=== PATIENT | female | born 1965 | race Caucasian/White ===

== ENCOUNTER 2023-06-21 10:23 | Outpatient (OUT) | payer OTHER, SELFPAY ==
--- NOTE | 2023-06-21 10:29 | MR_ITS ---
The [address] [address] Patient Name: ANKIT SULLIVAN MRN: [facility]:[id number] date: 1965 Sex: F Assigned Patient Location: MRI Current Patient Location: MRI Accession/Order Number: [id number] Exam Date: 06/21/2023 10:55 Report Date: 06/21/2023 12:14 At the request of: JEANA BOWIE Procedure: MR head/brain wo/w con MRI BRAIN WITH AND WITHOUT CONTRAST; 06/21/2023 10:55 AM EST History:Sensorineural Hearing Loss Bilateral H90.3 . Bilateral ringing in the years Comparison: None available . SEQUENCES: Per IAC protocol STUDY QUALITY: Good No evidence of acute infarction. No restricted diffusion. Modest relatively symmetric scattered supratentorial white matter disease. There is no evidence of abnormal intra-axial enhancement. No intra-axial mass effect. VESSELS: Signal voids are present in the major intracranial blood vessels. BRAIN VOLUME: Normal for age. VENTRICLES: No hydrocephalus. ORBITS: No acute findings. SELLA/ SUPRASELLAR: No acute findings at relatively thick sections. CP ANGLES: No evidence of a mass or abnormal enhancement in either CP angle or IAC. The structures of the inner ears are grossly symmetric and unremarkable at MRI. No unexpected signal or enhancement at the expected locations of the middle ear cavities. There is no mastoid effusion. Unremarkable signal voids and enhancement torcula, transverse sinus, sigmoid sinus, and jugular bulbs. Neither petrous ICA is obviously aberrant in course. UPPER CERVICAL: No acute findings. PARANASAL SINUSES: No air-fluid levels. Moderate focal mucosal thickening in right anterior ethmoid cell MASTOIDS: Essentially clear at MRI CALVARIUM: No acute findings. OTHER: None. MR/MR head/brain wo/w con IMPRESSION: 1. No distinct evidence of acute intracranial process. 2. Modest symmetric primarily scattered supratentorial white matter disease. 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 Electronically authenticated by: NELLY THOMPSON Date: 06/21/2023 12:14
== END 2023-06-21 10:24 | disposition home or self-care (01) ==
LOC: MRI 10:23
PROVIDERS: PCP Family Medicine; Visit Provider Otolaryngology
DX: H90.3 Sensorineural hearing loss, bilateral (principal)
CPT/HCPCS: 70553; A9575

== ENCOUNTER 2023-09-14 10:42 | Outpatient (OUT) | payer OTHER, SELFPAY ==
--- NOTE | 2023-09-14 10:45 | MM_ITS ---
Patient Name: ANKIT SULLIVAN MR#: [id number] : 1965 Exam Date: 09/14/2023 Ordering Doctor: DR Barak White . RADIOLOGY REPORT PROCEDURE: MM TOMOSYNTHESIS SCREENING BI COMPARISON: MG MAMM SCREEN 3D [place] CAD, 08/24/2021. MG MAMM SCREEN 3D [place] CAD, 08/25/2022. INDICATIONS: Screening Calculator Name NCI Breast Cancer Risk Assessment Tool 5 Year Breast Cancer Risk 2.80% Lifetime Breast Cancer Risk 15.50% Personal Breast Cancer No Personal Ovarian Cancer No Treatments None Family Cancers Mother with breast cancer at age 50; Father with prostate cancer at age 50; Father with lymphoma cancer at age 73. LOCATION: The [facility] BREAST COMPOSITION: Scattered areas fibroglandular density. FINDINGS: DIAGNOSTIC CATEGORY 1--NEGATIVE. NO CHANGE FROM COMPARISON ASSESSMENT. Scattered benign-appearing nodules are present. Scattered benign-appearing calcifications are present. Scattered benign-appearing lymph nodes are present. RIGHT BREAST: No significant suspicious finding. LEFT BREAST: No significant suspicious finding. RECOMMENDATIONS: ROUTINE MAMMOGRAM AND CLINICAL EVALUATION IN 12 MONTHS. PLEASE NOTE: A NORMAL MAMMOGRAM DOES NOT EXCLUDE THE POSSIBILITY OF BREAST CANCER. A CLINICALLY SUSPICIOUS PALPABLE LUMP SHOULD BE BIOPSIED. Dictated by: Benjamín Redd MD on 09/14/2023 at 12:54 Approved by: Benjamín Redd MD on 09/14/2023 at 12:56
--- OUTSIDE RECORDS SUMMARY | 2023-09-14 10:52 | XMS_ITS | CCD ---
Author Name Unknown Address [address] [facility] [address] [place] [id number] Organization [facility] Care Team Providers Care Igniter Capper Name Role Phone MD Elvira Etienne Attending Provider [phone] TYSHA[address] ., DR BUNN Admitting Unavailable TYSHAWN ., DR BUNN Attending Unavailable NADERER, DR TOMMY Greene Primary Care Unavailable TYSHAWN ., DR BUNN Consulting Unavailable NADERER, DR TOMMY Greene Admitting Unavailable NADERER, DR TOMMY Greene Attending Unavailable NADERER, DR TOMMY Greene Primary Care Unavailable TYSHAWN ., DR BUNN Consulting Unavailable ZIEBER, DR ROBERT Raymond Consulting Unavailable NADEREMandi, DR TOMMY Greene Consulting Unavailable NADAMIRA, DR TOMMY Greene Admitting Unavailable NADERER, DR TOMMY Greene Attending Unavailable NADERER, DR TOMMY Greene Primary Care Unavailable NADERER, DR TOMMY Greene Consulting Unavailable Fawcesar, Attending Unavailable Fawcesar, Admitting Unavailable NON STAFF Primary Care Unavailable NADERER, TOMMY Attending Unavailable Tommy Reno MD Primary Care Provider Allergies Allergy Classification Reported Allergen(s) Allergy Type Date of Onset Reaction(s) Facility (1 source) cefdinir Drug Allergy 4 Other [facility] (1 source) Iodine Drug Allergy 3 Hives, Itching, Rash, Swelling [facility] Work Phone: (1 source) levoFLOXacin Drug Allergy 4 Other [facility] Work Phone: (1 source) Mercury Drug Allergy 3 Hives, Itching [facility] (1 source) Sulfonamides (Antibiotic) Drug Allergy 3 Hives, Itching, Rash, Swelling, Unknown [facility] (1 source) Trimethoprim Drug Allergy 3 Unknown [facility] Medications Current Medications Medication Drug Class(es) Dates Sig (Normalized) Sig (Original) benzonatate 200 mg oral capsule (1 source) Non-narcotic Antitussive Start: 09-05-2023 take 1 capsule by mouth three times daily as needed for cough benzonatate (Tessalon) 200 MG capsule Indications: Upper respiratory tract infection, unspecified type Take 1 capsule (200 mg) by mouth 3 (three) times a day as needed for cough Do not crush or chew. 30 capsule 1 09/05/2023 Active biotin 10 mg oral capsule (1 source) take 1 capsule by mouth in the morning biotin 10 MG capsule Take 1 capsule by mouth in the morning. 0 Active Calcium Citrate / Vitamin D (1 source) take 1 tablet by mouth once in the morning Calcium Citrate-Vitamin D (CALCIUM CITRATE +D PO) Take 1 tablet by mouth in the morning. 0 Active celecoxib 200 mg oral capsule (1 source) Nonsteroidal Anti-inflammatory Drug take 1 capsule by mouth in the morning celecoxib (CeleBREX) 200 MG capsule Take 200 mg by mouth in the morning and 200 mg before bedtime. 0 Active cetirizine hydrochloride 10 mg oral tablet (1 source) Histamine-1 Receptor Antagonist take 1 tablet by mouth in the morning cetirizine (ZyrTEC) 10 MG tablet Take 10 mg by mouth in the morning. 0 Active folic acid 0.8 mg oral tablet (1 source) take 0.8 mg by mouth in the morning folic acid (Folvite) 800 MCG tablet Take 0.8 mg by mouth in the morning. 0 Active furosemide 40 mg oral tablet (1 source) Loop Diuretic Start: 03-14-2023 take 1 tablet by mouth in the morning furosemide (Lasix) 40 MG tablet Take 40 mg by mouth in the morning and 40 mg before bedtime. 0 03/14/2023 Active magnesium oxide 500 mg oral capsule (1 source) take 1 capsule by mouth in the morning Magnesium 500 MG capsule Take 1 capsule by mouth in the morning. 0 Active Multiple Vitamins-Minerals (multivitamin with minerals) tablet (1 source) take 1 tablet by mouth in the morning Multiple Vitamins-Minerals (multivitamin with minerals) tablet Take 1 tablet by mouth in the morning. 0 Active potassium chloride 10 meq extended release oral tablet (1 source) take 1 tablet by mouth in the morning potassium chloride CR (Klor-Con) 10 MEQ ER tablet Take 10 mEq by mouth in the morning. 0 Active pravastatin sodium 40 mg oral tablet (1 source) HMG-CoA Reductase Inhibitor take 1 tablet by mouth at bedtime pravastatin (Pravachol) 40 MG tablet Take 40 mg by mouth at bedtime. 0 Active SUMAtriptan 100 mg oral tablet (1 source) Serotonin-1b and Serotonin-1d Receptor Agonist Start: 09-05-2023 take 1 tablet by mouth once SUMAtriptan (Imitrex) 100 MG tablet Indications: Migraine without aura and without status migrainosus, not intractable (CMS/HCC) Take 1 tablet (100 mg) by mouth 1 (one) time if needed for migraine 9 tablet 5 09/05/2023 Active topiramate 100 mg oral tablet (1 source) take 1 tablet by mouth in the morning topiramate (Topamax) 100 MG tablet Take 100 mg by mouth in the morning. 0 Active zinc gluconate 50 mg oral tablet (1 source) take 1 tablet by mouth in the morning zinc gluconate 50 MG tablet Take 50 mg by mouth in the morning. 0 Active Completed/Discontinued Medications Medication Drug Class(es) Dates Sig (Normalized) Sig (Original) Rhubarb preparation (1 source) Non-Standardized Food Allergenic Extract, Non-Standardized Plant Allergenic Extract take 1 tablet by mouth in the morning Rhubarb (ESTROVEN COMPLETE PO) Take 1 tablet by mouth in the morning. 0 Active Problems Active Problems Problem Classification Problem Date Documented Date Episodic/Chronic Disorders of lipid metabolism (1 source) Hyperlipidemia; Translations: [Hyperlipidemia, unspecified] Onset: 04-02-2023 04-02-2023 Chronic Esophageal disorders (1 source) Gastroesophageal reflux disease; Translations: [Gastro-esophageal reflux disease without esophagitis] Onset: 04-02-2023 04-02-2023 Chronic Headache; including migraine (1 source) Migraine without aura, not refractory ; Translations: [Migraine without aura, not intractable, without status migrainosus] Onset: 04-02-2023 09-05-2023 Chronic Immunizations and screening for infectious disease (1 source) Encounter for screening for human papillomavirus (HPV); Translations: [ENC SCREENING HUMAN PAPILLOMAVIRUS] Onset: 10-06-2022 Episodic Menopausal disorders (1 source) Menopausal symptom; Translations: [Menopausal and female climacteric states] Onset: 04-02-2023 04-02-2023 Chronic Other ear and sense organ disorders (1 source) Sensorineural hearing loss, bilateral; Translations: [Sensorineural hearing loss, bilateral] Onset: 04-04-2023 04-04-2023 Chronic Other screening for suspected conditions (not mental disorders or infectious disease) (9 sources) Encounter for screening for malignant neoplasm of cervix; Translations: [Encounter for screening mammogram for malignant neoplasm of breast] Onset: 08-25-2022 Episodic Other upper respiratory disease (1 source) Allergic rhinitis; Translations: [Allergic rhinitis, unspecified] Onset: 04-02-2023 04-02-2023 Chronic Other upper respiratory infections (1 source) Sinusitis; Translations: [Chronic sinusitis, unspecified] Onset: 04-02-2023 04-02-2023 Chronic Residual codes; unclassified (1 source) Family history of malignant neoplasm of breast; Translations: [FAMILY HX MALIG NEOPLASM OF BREAST] Onset: 08-30-2022 Episodic Residual codes; unclassified (1 source) Family history of malignant neoplasm of prostate; Translations: [FAMILY HX MALIG NEOPLASM PROSTATE] Onset: 08-30-2022 Episodic Residual codes; unclassified (1 source) Family history of other malignant neoplasms of lymphoid, hematopoietic and related tissues; Translations: [FAM HX OTH MAL JOSE LYMPH HEMATPOETC] Onset: 08-30-2022 Episodic Unclassified (1 source) Pain in left ankle and joints of left foot; Translations: [Pain in left ankle and joints of left foot] Onset: 05-10-2022 Past or Other Problems Problem Classification Problem Date Documented Da te Episodic/Chronic Mycoses (1 source) Mycosis; Translations: [Candidiasis, unspecified] Onset: 04-02-2023 Resolved: 04-02-2023 04-02-2023 Episodic Other ear and sense organ disorders (1 source) Tinnitus of left ear; Translations: [Tinnitus, left ear] Onset: 04-02-2023 04-04-2023 Episodic Other nutritional; endocrine; and metabolic disorders (1 source) Obese class I; Translations: [Obesity, unspecified] Onset: 04-02-2023 Resolved: 04-02-2023 04-02-2023 Chronic Other upper respiratory infections (1 source) Acute sinusitis; Translations: [Acute sinusitis, unspecified] Onset: 04-02-2023 Resolved: 04-02-2023 04-02-2023 Episodic Residual codes; unclassified (1 source) Edema; Translations: [Edema, unspecified] Onset: 04-02-2023 04-02-2023 Episodic Results Test Name Value Interpretation Reference Range Facility PAP ACOG PANEL 2: 30 to 65on 10-10-2022 . . Normal [facility] Comment on above: Result Comment: Perf ormed at: WB Performed By: #### [id number] #### [facility] [address] [address] [address] Alondra Pham Age Gdln ACOG Testing 30-65 [facility] Comment on above: Performed By: #### [id number] #### [facility] [address] [address] [address] Alondra Pham DIAGNOSIS: Comment Normal [facility] Comment on above: Result Comment: NEGA TIVE FOR INTRAEPITHELIAL LESION OR MALIGNANCY. Performed at: WB Performed By: #### [id number] #### [facility] [address] [address] [address] Alondra Pham HPV Aptima Negative Normal Negative [facility] Comment on above: Result Comment: This nucleic acid amplification test detects fourteen high-risk HPV types (16,18,31,33,35,39,45,51,52,56,58,59,66,68) without differentiation. Performed at: =G Performed By: #### [id number] #### [facility] [address] [address] [address] Alondra Pham HPV Genotype Reflex Comment Normal [facility] Comment on above: Result Comment: Crit eria not met, HPV Genotype not performed. Performed at: WB Performed By: #### [id number] #### [facility] [address] [address] [address] Alondra Pham Methodology: CTIM Normal [facility] Comment on above: Result Comment: The [employer] [facility] Support Consultant was unable to read this specimen. Therefore a manual review was performed. Performed at: WB Performed By: #### [id number] #### [facility] [address] [place] [address] Dr. Alondra Pham Note: Comment Normal [facility] Comment on above: Result Comment: The Pap smear is a screening test designed to aid in the detection of premalignant and malignant conditions of the uterine cervix. It is not a diagnostic procedure and should not be used as the sole means of detecting cervical cancer. Both false-positive and false-negative reports do occur. . Performed at: WB Performed By: #### [id number] #### [facility] [address] [place] [address] Dr. Alondra Pham Performed by: Comment Normal [facility] Comment on above: Result Comment: Usman Lim, Car Hopper (ASCP) Performed at: WB Performed By: #### [id number] #### [facility] [address] [place] [address] Dr. Alondra Pham Specimen adequacy: Comment Normal [facility] Comment on above: Result Comment: Sati sfactory for evaluation. Endocervical and/or squamous metaplastic cells (endocervical component) are present. Performed at: WB Performed By: #### [id number] #### [facility] [address] [place] [address] Dr. Alondra Pham MG MAMM SCREEN 3D LUCRECIA CADon 08-25-2022 MG MAMM SCREEN 3D LUCRECIA CAD Patient: ANKIT ROMERO Exam Date: 08/25/2022 : 1965 Gender:F Ordering : DR TOMMY RENO . Admission #: [id number] Family : DR ONI WHITE . Order #: [id number] CLICK HERE TO VIEW EXAM RADIOLOGY REPORT PROCEDURE: MAMMOGRAM SCREENING 3D BILATERAL CAD COMPARISON: MG MAMM SCREEN LUCRECIA W CAD, 08/23/2020. MG MAMM SCREEN LUCRECIA W CAD, 08/18/2019. DIGITIZED_MAMMO, 06/04/2009. MG MAMM SCREEN 3D LUCRECIA CAD, 08/24/2021. INDICATIONS: Screening mammography Calculator Name NCI Breast Cancer Risk Assessment Tool 5 Year Breast Cancer Risk 2.70% Lifetime Breast Cancer Risk 15.80% Personal Breast Cancer No Personal Ovarian Cancer No Treatments None Family Cancers Mother with breast cancer at age 50; Father with prostate cancer at age 50; Father with lymphoma cancer at age 73. LOCATION: [facility] BREAST COMPOSITION: Scattered areas fibroglandular density. FINDINGS: DIAGNOSTIC CATEGORY 1--NEGATIVE. RIGHT BREAST: No significant suspicious finding. No significant change has occurred. LEFT BREAST: No significant suspicious finding. No significant change has occurred. RECOMMENDATIONS: ROUTINE MAMMOGRAM AND CLINICAL EVALUATION IN 12 MONTHS. PLEASE NOTE: A NORMAL MAMMOGRAM DOES NOT EXCLUDE THE POSSIBILITY OF BREAST CANCER. A CLINICALLY SUSPICIOUS PALPABLE LUMP SHOULD BE BIOPSIED. Dictated by: Robert Martel M.D. on 08/28/2022 at 09:08 Approved by: Robert Martel M.D. on 08/28/2022 at 09:11 Normal [facility] CBC AUTO DIFFon 06-02-2022 BASO # 0.0 103/ul Normal 0.0-0.1 [facility] Comment on above: Performed By: #### C BC #### [facility] [address] [place] [address] Dr. Alondra Pham Basophils/100 WBC (Bld) 0.4 % Normal 0.2-2.0 [facility] Comment on above: Performed By: #### C BC #### [facility] [address] [place] [address] Dr. Alondra Pham EO # 0.1 103/ul Normal 0.0-0.7 [facility] Comment on above: Performed By: #### C BC #### [facility] [address] [place] [address] Dr. Alondra Pham Eosinophils/100 WBC (Bld) 1.8 % Normal 0.9-7.0 [facility] Comment on above: Performed By: #### C BC #### [facility] [address] [place] [address] Dr. Alondra Pham Erythrocyte distribution width (RBC) [Ratio] 14.9 % Normal 11.0-15.0 [facility] Comment on above: Performed By: #### C BC #### [facility] [address] [place] [address] Dr. Alondra Pham Hematocrit (Bld) [Volume fraction] 46.1 % Normal 36.0-48.0 [facility] Comment on above: Performed By: #### C BC #### [facility] [address] [place] [address] Dr. Alondra Pham Hemoglobin (Bld) [Mass/Vol] 14.9 g/dL Normal 12.0-16.0 [facility] Comment on above: Performed By: #### C BC #### [facility] [address] [place] [address] Dr. Alondra Pham IG # 0.05 10e3/ul Critically high 0.00-0.03 [facility] Comment on above: Performed By: #### C BC #### [facility] [address] [place] [address] Dr. Alondra Pham IG % 0.7 % Critically high 0.0-0.5 [facility] Comment on above: Performed By: #### C BC #### [facility] [address] [place] [address] Dr. Alondra Pham LYMPH # 2.2 103/ul Normal 1.2-3.8 [facility] Comment on above: Performed By: #### C BC #### [facility] [address] [place] [address] Dr. Alondra Pham Lymphocytes/100 WBC (Bld) 29.2 % Normal 20.5-60.0 [facility] Comment on above: Performed By: #### C BC #### [facility] [address] [place] [address] Dr. Alondra Pham MANUAL DIFF REQ NO Normal [facility] Comment on above: Performed By: #### C BC #### [facility] [address] [place] [address] Dr. Alondra Pham MCH (RBC) [Entitic mass] 28.3 pg Normal 26.7-34.0 [facility] Comment on above: Performed By: #### C BC #### [facility] [address] [place] [address] Dr. Alondra Pham MCHC (RBC) [Mass/Vol] 32.3 g/dL Normal 29.9-35.2 [facility] Comment on above: Performed By: #### C BC #### [facility] [address] [place] [address] Dr. Alondra Pham MCV (RBC) [Entitic vol] 87.5 fL Normal 81.0-99.0 [facility] Comment on above: Performed By: #### C BC #### [facility] [address] [place] [address] Dr. Alondra Pham MONO # 0.7 103/ul Normal 0.3-0.8 [facility] Comment on above: Performed By: #### C BC #### [facility] [address] [place] [address] Dr. Alondra Pham Monocytes/100 WBC (Bld) 9.2 % Normal 1.7-12.0 [facility] Comment on above: Performed By: #### C BC #### [facility] [address] [place] [address] Dr. Alondra Pham NEUT # 4.5 103/ul Normal 1.4-6.5 [facility] Comment on above: Performed By: #### C BC #### [facility] [address] [place] [address] Dr. Alondra Pham Neutrophils/100 WBC (Bld) 58.7 % Normal 43.0-75.0 [facility] Comment on above: Performed By: #### C BC #### [facility] [address] [place] [address] Dr. Alondra Pham Platelet mean volume (Bld) [Entitic vol] 11.0 fL Normal 9.5-13.5 [facility] Comment on above: Performed By: #### C BC #### [facility] [address] [place] [address] Dr. Alondra Pham PLT 299 103/ul Normal 150-450 [facility] Comment on above: Performed By: #### C BC #### [facility] [address] [place] [address] Dr. Alondra Pham RBC 5.27 106/ul Normal 4.20-5.40 [facility] Comment on above: Performed By: #### C BC #### [facility] [address] [address] [address] Alondra Pham WBC 7.6 103/ul Normal 4.0-11.0 [facility] Comment on above: Performed By: #### C BC #### [facility] [address] [address] [address] Alondra Pham GLYCOHEMOGLOBIN A1Con 2021 ADA RECOMMENDATION SEE BELOW Normal [facility] Comment on above: Result Comment: ADA RECOMMENDED LIMIT 4.0 - 6.0 ADA THERAPEUTIC TARGET < 7.0 ACTION SUGGESTED > 7.0 Performed By: #### A 1C #### [facility] [address] [place] [address] Dr. Alondra Pham Glucose [Mass/Vol] 120 mg/dL Normal [facility] Comment on above: Performed By: #### A 1C #### [facility] [address] [place] [address] Dr. Alondra Pham HbA1c (Bld) [Mass fraction] 5.8 % Normal 4.5-6.2 [facility] Comment on above: Performed By: #### A 1C #### [facility] [address] [place] [address] Dr. Alondra Pham LIPID PROFILEon 06-02-2022 CHOL-HDL RATIO NORM SEE BELOW Normal [facility] Comment on above: Result Comment: 3.3 - 4.4 LOW RISK 4.4 - 7.1 AVERAGE RISK 7.1 - 11.0 MODERATE RISK >11.0 HIGH RISK Performed By: #### L IVER, BMP, TSH, LIPID #### [facility] [address] [address] [address] Alondra Pham Cholesterol [Mass/Vol] 231 mg/dL Critically high <=200 [facility] Comment on above: Performed By: #### L IVER, BMP, TSH, LIPID #### [facility] [address] [address] [address] Alondra Pham Cholesterol in HDL [Mass/Vol] 51 mg/dL Normal 40-60 [facility] Comment on above: Performed By: #### L IVER, BMP, TSH, LIPID #### [facility] [address] [address] [address] Alondra Pham Cholesterol in LDL [Mass/Vol] 140.8 mg/dL Normal [facility] Comment on above: Performed By: #### L IVER, BMP, TSH, LIPID #### [facility] [address] [address] [address] Alondra Pham Cholesterol.total/Ch olesterol in HDL [Mass ratio] 4.5 {ratio} Normal [facility] Comment on above: Performed By: #### L IVER, BMP, TSH, LIPID #### [facility] [address] [address] [address] Alondra Pham HDL NORMAL > or = 60 mg/dl - LO W CARDIOVASCULAR RISK <40 mg/dl - HIGH CARDIOVASCULAR RISK Normal [facility] Comment on above: Performed By: #### L IVER, BMP, TSH, LIPID #### [facility] [address] [address] [address] Alondra Pham LDL CALC NORMAL SEE BELOW Normal [facility] Comment on above: Result Comment: <100 mg/dl OPTIMAL 100 - 129 mg/dl NEAR OR ABOVE OPTIMAL 130 - 159 mg/dl BORDERLINE HIGH 160 - 189 mg/dl HIGH >190 mg/dl VERY HIGH Performed By: #### L IVER, BMP, TSH, LIPID #### [facility] [address] [address] [address] Alondra Pham Triglyceride [Mass/Vol] 196 mg/dL Critically high <=150 [facility] Comment on above: Performed By: #### L IVER, BMP, TSH, LIPID #### [facility] [address] [address] [address] Alondra Pham VLDL CALC 39.2 mg/dL Normal [facility] Comment on above: Performed By: #### L IVER, BMP, TSH, LIPID #### [facility] [address] [address] [address] Alondra Pham LIVER PROFILEon 06-02-2022 Albumin [Mass/Vol] 3.7 g/dL Normal 3.4-5.0 [facility] Comment on above: Performed By: #### L IVER, BMP, TSH, LIPID #### [facility] [address] [place] [address] Dr. Alondra Pham Albumin/Globulin [Mass ratio] 0.9 {ratio} Normal [facility] Comment on above: Performed By: #### L IVER, BMP, TSH, LIPID #### [facility] [address] [place] [address] Dr. Alondra Pham ALP [Catalytic activity/Vol] 95 U/L Normal 46-116 [facility] Comment on above: Performed By: #### L IVER, BMP, TSH, LIPID #### [facility] [address] [place] [address] Dr. Alondra Pham ALT [Catalytic activity/Vol] 23 U/L Normal 14-59 [facility] Comment on above: Performed By: #### L IVER, BMP, TSH, LIPID #### [facility] [address] [place] [address] Dr. Alondra Pham AST [Catalytic activity/Vol] 16 U/L Normal 15-37 [facility] Comment on above: Performed By: #### L IVER, BMP, TSH, LIPID #### [facility] [address] [place] [address] Dr. Alondra Pham BILI, CONJUGATED 0.1 mg/dL Normal 0.0-0.2 [facility] Comment on above: Performed By: #### L IVER, BMP, TSH, LIPID #### [facility] [address] [place] [address] Dr. Alondra Pham Bilirubin [Mass/Vol] 0.6 mg/dL Normal 0.2-1.0 [facility] Comment on above: Performed By: #### L IVER, BMP, TSH, LIPID #### [facility] [address] [place] [address] Dr. Alondra Pham Globulin (S) [Mass/Vol] 3.9 g/dL Normal [facility] Comment on above: Performed By: #### L IVER, BMP, TSH, LIPID #### [facility] [address] [address] [address] Alondra Pham Protein [Mass/Vol] 7.6 g/dL Normal 6.4-8.2 [facility] Comment on above: Performed By: #### L IVER, BMP, TSH, LIPID #### [facility] [address] [address] [address] Alondra Pham PROF CHEM 8 (BAS METB)on Anion gap [Moles/Vol] 12.3 mmol/L Normal [facility] Comment on above: Performed By: #### L IVER, BMP, TSH, LIPID #### [facility] [address] [address] [address] Alondra Pham Calcium [Mass/Vol] 9.2 mg/dL Normal 8.5-10.1 [facility] Comment on above: Performed By: #### L IVER, BMP, TSH, LIPID #### [facility] [address] [place] [address] Dr. Aolndra Pham Chloride [Moles/Vol] 101 mmol/L Normal 98-107 [facility] Comment on above: Performed By: #### L IVER, BMP, TSH, LIPID #### [facility] [address] [place] [address] Dr. Alondra Pham CO2 [Moles/Vol] 28.4 mmol/L Normal 21.0-32.0 [facility] Comment on above: Performed By: #### L IVER, BMP, TSH, LIPID #### [facility] [address] [address] [address] Alondra Pham Creatinine [Mass/Vol] 1.10 mg/dL Critically high 0.55-1.02 [facility] Comment on above: Performed By: #### L IVER, BMP, TSH, LIPID #### [facility] [address] [place] [address] Dr. Alondra Pham EGFR-AF NEW ZEALANDER >60 Normal >=60 [facility] Comment on above: Performed By: #### L IVER, BMP, TSH, LIPID #### [facility] [address] [place], [place] [id number] Dr. Alondra Pham EGFR-NON AF NEW ZEALANDER 51 mL/min/1.73m2 Critically low >=60 [facility] Comment on above: Performed By: #### L IVER, BMP, TSH, LIPID #### [facility] [address] [place] [address] Dr. Alondra Pham Glucose [Mass/Vol] 109 mg/dL Critically high 74-106 T [facility] Comment on above: Performed By: #### L IVER, BMP, TSH, LIPID #### [facility] [address] [place] [address] Dr. Alondra Pham Potassium [Moles/Vol] 3.7 mmol/L Normal 3.5-5.1 [facility] Comment on above: Performed By: #### L IVER, BMP, TSH, LIPID #### [facility] [address] [place] [address] Dr. Alondra Pham Sodium [Moles/Vol] 138 mmol/L Normal 136-145 [facility] Comment on above: Performed By: #### L IVER, BMP, TSH, LIPID #### [facility] [address] [address] [address] Alondra Pham Urea nitrogen [Mass/Vol] 33.0 mg/dL Critically high 7.0-18.0 [facility] Comment on above: Performed By: #### L IVER, BMP, TSH, LIPID #### [facility] [address] [address] [address] Alondra Pham Urea nitrogen/Creatinine [Mass ratio] 30.0 mg/mg Normal [facility] Comment on above: Performed By: #### L IVER, BMP, TSH, LIPID #### [facility] [address] [place] [address] Dr. Alondra Pham TSHon 06-02-2022 TSH 1.888 uIU/mL Normal 0.358-3.740 [facility] Comment on above: Performed By: #### L IVER, BMP, TSH, LIPID #### [facility] [address] [place] [address] Dr. Alondra Pham XR ankle LT min 3V*on 2021 XR ankle LT min 3V* [facility] [place] [address] [place], [place] [id number] XRay Report Signed Patient: Ankit Romero MR#: [id number] : 1965 Acct:[id number] Age/Sex: 56 / F ADM Date: 05/10/22 Loc: XDCLY Room: Type: [facility] Attending Dr: Shaikh Lowell HARRISON Copies to: Shaikh Lowell MD Ordering Provider: Shaikh Lowell MD Date of Service: 05/10/22 XR/XR ankle LT min 3V*: LEFT ANKLE PAIN XR ankle LT min 3V* 05/10/2022 10:18 AM SIGNS AND SYMPTOMS: Left foot injury with pain and swelling over the left ankle, greatest medially PROTOCOL: Frontal, lateral, and oblique radiographs of the left ankle COMPARISON: None FINDINGS: The ankle mortise is preserved. There is no evidence of fracture. There is no dislocation or subluxation. XR/XR ankle LT min 3V* IMPRESSION: No acute bony injury. There is mild diffuse soft tissue swelling. Impression dictated by: Anam Yanes M.D.05/10/2022 4:33 PM Dictation Location: [place] [address] Transcribed By: [facility] 05/10/22 1633 Dictated By: Anam Yanes II, MD 05/10/22 1631 Signed By: 05/10/22 1633 [facility] Encounters Encounter Date Encounter Type Care Provider Facility Start: 09-07-2023 Telephone encounter Anita pineda MD Work Phone: [facility] Start: 09-05-2023 Patient encounter procedure Anita Dee MD Work Phone: [facility] Start: 09-05-2023 End: 09-05-2023 ambulatory TOMMY RENO Not Available Start: 10-03-2022 End: 10-03-[address] ONI WHITE . Facility:[facility] Start: 08-25-2022 End: 08-26-[address] TOMMY RENO Facility:[facility] Start: 06-07-2022 Encounter for genera l adult medical examination without abnormal findings DR TOMMY RENO [facility] Start: 06-02-2022 End: 06-03-[address] TOMMY RENO Facility:[facility] Start: 06-02-2022 End: 06-03-2022 Encounter for general adult medical examination without abnormal findings DR TOMMY RENO Facility:[facility] Start: 05-10-2022 End: 05-10-2022 ambulatory Shaikh Lowell [facility] Work Phone: Start: 05-10-2022 End: 05-10-2022 Patient encounter procedure MD Shaikh Etienne Work Phone: [facility] Procedures Date Procedure Procedure Detail Performing Clinician Start: 05-10-2022 X-ray of left ankle MD Shaikh Etienne Work Phone: Plan of Treatment Date Care Activity Detail Author Start: 08-02-2025 Screening for malign ant neoplasm of colon [facility] Start: 03-03-2024 End: 03-03-2024 Patient encounter procedure 03/03/2024 10:30 AM EDT [facility] [address] [place] [address] Tommy Reno MD [address] [place] [address] [facility] Start: 10-09-2023 End: 10-09-2023 Patient encounter procedure 10/09/2023 11:00 AM EST Office Visit [facility] [address] [place] [address] Oni White DO [address] [place] [address] [facility] Start: 2005 Screening for malign ant neoplasm of breast Mammogram [facility] Start: 1995 Screening for malign ant neoplasm of cervix [facility] Start: 1986 Screening for malign ant neoplasm of cervix Pap Smear [facility] Start: 1965 Screening for malign ant neoplasm of colon [facility] Immunizations Immunization Date Immunization Notes Care Provider Diego jovel 08-29-2022 Moderna SARS-CoV-2 50mcg/0.5mL Booster Anita Dee MD Work Phone: [facility] 08-04-2019 zoster vaccine recombinant Anita Dee MD Work Phone: [facility] 06-03-2019 zoster vaccine recombinant Anita Dee MD Work Phone: [facility] Payers Date Payer Category Payer Unknown [employer] [id number] 2022-Present [address] [address] [place] [address] [id number] 2022 Self-pay [id number] 1965 Unknown [id number] 1965 Unknown [id number] 1965 Unknown [id number] 1965 Unknown [id number] 1959 Unknown [id number] 1959 Unknown [id number] Unknown [id number] Worker's Compensation [facility] [place] [id number] Social History Date Type Detail Facility [facility] Work Phone: Start: 1965 Sex Assigned At Female F [facility] Start: 04-02-2023 [facility] tobacco [facility] Start: 04-02-2023 Tobacco use and exposure Smoke less tobacco non-user [facility] Start: 09-05-2023 Alcohol intake Lifetime non-d luis (finding) [facility] Start: 09-04-2023 End: 09-05-2023 History of Social function [facility] Start: 09-04-2023 End: 09-05-2023 Humiliation, Afraid, Rape, and Kick questionnaire [HARK] [facility] Within the last year , have you been afraid of your partner or ex-partner? Patient refused [facility] Within the last year , have you been humiliated or emotionally abused in other ways by your partner or ex-partner? No [facility] Are you now , , , , never or living with a partner? [facility] How often to you hav e a drink containing alcohol? Never [facility] Do you feel stress - tense, restless, nervous, or anxious, or unable to sleep at night because your mind is troubled all the time - these days [OSQ] Not at all [facility] (I/We) worried whe er (my/our) food would run out before (I/we) got money to buy more. Never true [facility] Start: 1965 Sex Assigned At Not on file [facility] Telephone encounter Note 09-07-2023 Telephone Encounter - Anita Dee MD - 09/07/2023 12:45 PM EST Note Date & Type Note Facility 09-07-2023 Telephone encount er Note prn [facility] Note 09-07-2023 Telephone Encounter - Anita Dee MD - 09/07/2023 12:45 PM ESTTelephone Encounter - Shantell Dee - 09/07/2023 11:34 AM EST Note Date & Type Note Facility 09-07-2023 Miscellaneous Notes Formattin g of this note might be different from the original. prn Called pt to reschedule follow up MRI appt from 08/08/2023. Left messages on 08/24, 08/27, 08/28, 08/29, ,09/04 with no response. Spoke to pt today and states she does not wish to reschedule. Pt stated she looked at MRI results from the Nov MRI and said she does not need an appt as the MRI looked good to her. Pt has history of cancelling appts (4 since 04/23/2023). documented in this encounter [facility] Telephone encounter Note 09-07-2023 Telephone Encounter - Shantell Dee - 09/07/2023 11:34 AM EST Note Date & Type Note Facility 09-07-2023 Telephone encount er Note Called pt to reschedule follow up MRI appt from 08/08/2023. Left messages on 08/24, 08/27, 08/28, 08/29, ,09/04 with no response. Spoke to pt today and states she does not wish to reschedule. Pt stated she looked at MRI results from the Nov MRI and said she does not need an appt as the MRI looked good to her. Pt has history of cancelling appts (4 since 04/23/2023). [facility] Evaluation note Note Date & Type Note Facility Evaluation note [facility] Advance Directives Advance Directive Response Recorded Date/ Time Advance Directives No November 19 019 1:28pm Summary Purpose Family History No Family History Records FoundNo Family History Records FoundNo Family History Records Found Additional Source Comments Care Teams (unrecognized sec tion and content) Team Status: Inactive Member Role Status Dates Shaikh Lowell MD Attending Provider Active Igniter Capper Relationship Specialty Start Date End Date Tommy Reno MD [address] [place] [address] PCP - General Family Medicine 08/28/23 Goals (unrecognized section and content) Goals may be documented in a n alternate section INFORMATION SOURCE (unrecogn ized section and content) DATE CREATED AUTHOR 10/12/2022 [facility] DATE CREATED AUTHOR AUTHOR'S ORGANIZ ATION 11/23/2022 [facility] DATE CREATED AUTHOR AUTHOR'S ORGANIZ ATION 09/06/2023 [facility] FOR RECORDS PERTAINING TO PATIENTS WHO ARE OR HAVE BEEN ENROLLED IN A CHEMICAL DEPENDENCY/SUBSTANCEABUSE PROGRAM, SOME INFORMATION MAY BE OMITTED. This clinical summary was aggregated from multiple sources. Caution should be exercised in using it in the provision of clinical care. This summary normalizes information from multiple sources, and as a consequence, information in this document may materially change the coding, format and clinical context of patient data. In addition, data may be omitted in some cases. CLINICAL DECISIONS SHOULD BE BASED ON THE PRIMARY CLINICAL RECORDS. [employer] provides no warranty or guarantee of the accuracy or completeness of information in this document.
== END 2023-09-14 10:43 | disposition home or self-care (01) ==
LOC: MAMMO 10:42
PROVIDERS: PCP Family Medicine; Visit Provider Obstetrics & Gynecology
DX: Z12.31 Encounter for screening mammogram for malignant neoplasm of breast (principal); Z80.3 Family history of malignant neoplasm of breast; Z80.42 Family history of malignant neoplasm of prostate; Z80.7 Family history of other malignant neoplasms of lymphoid, hematopoietic and related tissues
CPT/HCPCS: 77063; 77067

== ENCOUNTER 2023-10-09 19:53 | Outpatient (REF) | payer OTHER, SELFPAY ==
--- OUTSIDE RECORDS SUMMARY | 2023-10-09 20:03 | XMS_ITS | CCD ---
Author Name Unknown Address [address] [facility] [address] [place] [id number] Organization [facility] Care Team Providers Care Cabin Supervisor Name Role Phone MD Elvira Etienne Attending Provider TYSHAWN ., DR BUNN Admitting Unavailable TYSHAWN ., DR BUNN Attending Unavailable NADERER, DR TOMMY Greene Primary Care Unavailable TYSHAWN ., DR BUNN Consulting Unavailable NADERER, DR TOMMY Greene Admitting Unavailable NADERER, DR TOMMY Greene Attending Unavailable NADERER, DR TOMMY Greene Primary Care Unavailable TYSHAWN ., DR BUNN Consulting Unavailable ZIEBER, DR ROBERT Raymond Consulting Unavailable NADERER, DR TOMMY Greene Consulting Unavailable NADAMIRA, DR TOMMY Greene Admitting Unavailable NADERER, DR TOMMY Greene Attending Unavailable NADERER, DR TOMMY Greene Primary Care Unavailable NADERER, DR TOMMY Greene Consulting Unavailable Fawcesar, Attending Unavailable Fawcesar, Admitting Unavailable NON STAFF Primary Care Unavailable NADERER, TOMMY Attending Unavailable Tommy Reno MD Primary Care Provider [phone] Allergies Allergy Classification Reported Allergen(s) Allergy Type Date of Onset Reaction(s) Facility (2 sources) cefdinir Drug Allergy 4 Other [facility] (2 sources) Iodine Drug Allergy 3 Hives, Itching, Rash, Swelling [facility] Work Phone: (2 sources) levoFLOXacin Drug Allergy 4 Other [facility] Work Phone: (2 sources) Mercury Drug Allergy 3 Hives, Itching [facility] (2 sources) Sulfonamides (Antibiotic) Drug Allergy 3 Hives, Itching, Rash, Swelling, Unknown [facility] (2 sources) Trimethoprim Drug Allergy 3 Unknown [facility] Medications Current Medications Medication Drug Class(es) Dates Sig (Normalized) Sig (Original) benzonatate 200 mg oral capsule (2 sources) Non-narcotic Antitussive Start: 09-05-2023 take 1 capsule by mouth three times daily as needed for cough benzonatate (Tessalon) 200 MG capsule Indications: Upper respiratory tract infection, unspecified type Take 1 capsule (200 mg) by mouth 3 (three) times a day as needed for cough Do not crush or chew. 30 capsule 1 09/05/2023 Active biotin 10 mg oral capsule (2 sources) take 1 capsule by mouth in the morning biotin 10 MG capsule Take 1 capsule by mouth in the morning. 0 Active Calcium Citrate / Vitamin D (2 sources) take 1 tablet by mouth once in the morning Calcium Citrate-Vitamin D (CALCIUM CITRATE +D PO) Take 1 tablet by mouth in the morning. 0 Active celecoxib 200 mg oral capsule (2 sources) Nonsteroidal Anti-inflammatory Drug take 1 capsule by mouth in the morning celecoxib (CeleBREX) 200 MG capsule Take 200 mg by mouth in the morning and 200 mg before bedtime. 0 Active cetirizine hydrochloride 10 mg oral tablet (2 sources) Histamine-1 Receptor Antagonist take 1 tablet by mouth in the morning cetirizine (ZyrTEC) 10 MG tablet Take 10 mg by mouth in the morning. 0 Active folic acid 0.8 mg oral tablet (2 sources) take 0.8 mg by mouth in the morning folic acid (Folvite) 800 MCG tablet Take 0.8 mg by mouth in the morning. 0 Active furosemide 40 mg oral tablet (2 sources) Loop Diuretic Start: 03-14-2023 take 1 tablet by mouth in the morning furosemide (Lasix) 40 MG tablet Take 40 mg by mouth in the morning and 40 mg before bedtime. 0 03/14/2023 Active magnesium oxide 500 mg oral capsule (2 sources) take 1 capsule by mouth in the morning Magnesium 500 MG capsule Take 1 capsule by mouth in the morning. 0 Active Multiple Vitamins-Minerals (multivitamin with minerals) tablet (2 sources) take 1 tablet by mouth in the morning Multiple Vitamins-Minerals (multivitamin with minerals) tablet Take 1 tablet by mouth in the morning. 0 Active potassium chloride 10 meq extended release oral tablet (2 sources) take 1 tablet by mouth in the morning potassium chloride CR (Klor-Con) 10 MEQ ER tablet Take 10 mEq by mouth in the morning. 0 Active pravastatin sodium 40 mg oral tablet (2 sources) HMG-CoA Reductase Inhibitor Start: 09-11-2023 take 1 tablet by mouth at bedtime pravastatin (Pravachol) 40 MG tablet Indications: Menopausal symptom TAKE 1 TABLET BY MOUTH AT BEDTIME 90 tablet 1 09/11/2023 Active take 1 tablet by mouth at bedtim e pravastatin (Pravachol) 40 MG tablet Take 40 mg by mouth at bedtime. 0 Active SUMAtriptan 100 mg oral tablet (2 sources) Serotonin-1b and Serotonin-1d Receptor Agonist Start: 09-05-2023 take 1 tablet by mouth once SUMAtriptan (Imitrex) 100 MG tablet Indications: Migraine without aura and without status migrainosus, not intractable (CMS/HCC) Take 1 tablet (100 mg) by mouth 1 (one) time if needed for migraine 9 tablet 5 09/05/2023 Active topiramate 100 mg oral tablet (2 sources) take 1 tablet by mouth in the morning topiramate (Topamax) 100 MG tablet Take 100 mg by mouth in the morning. 0 Active zinc gluconate 50 mg oral tablet (2 sources) take 1 tablet by mouth in the morning zinc gluconate 50 MG tablet Take 50 mg by mouth in the morning. 0 Active Completed/Discontinued Medications Medication Drug Class(es) Dates Sig (Normalized) Sig (Original) Rhubarb preparation (2 sources) Non-Standardized Food Allergenic Extract, Non-Standardized Plant Allergenic Extract take 1 tablet by mouth in the morning Rhubarb (ESTROVEN COMPLETE PO) Take 1 tablet by mouth in the morning. 0 Active Problems Active Problems Problem Classification Problem Date Documented Date Episodic/Chronic Disorders of lipid metabolism (2 sources) Hyperlipidemia; Translations: [Hyperlipidemia, unspecified] Onset: 04-02-2023 04-02-2023 Chronic Esophageal disorders (2 sources) Gastroesophageal reflux disease; Translations: [Gastro-esophageal reflux disease without esophagitis] Onset: 04-02-2023 04-02-2023 Chronic Headache; including migraine (2 sources) Migraine without aura, not refractory ; Translations: [Migraine without aura, not intractable, without status migrainosus] Onset: 04-02-2023 09-05-2023 Chronic Immunizations and screening for infectious disease (1 source) Encounter for screening for human papillomavirus (HPV); Translations: [ENC SCREENING HUMAN PAPILLOMAVIRUS] Onset: 10-06-2022 Episodic Menopausal disorders (2 sources) Menopausal symptom; Translations: [Menopausal and female climacteric states] Onset: 04-02-2023 04-02-2023 Chronic Other ear and sense organ disorders (2 sources) Sensorineural hearing loss, bilateral; Translations: [Sensorineural hearing loss, bilateral] Onset: 04-04-2023 04-04-2023 Chronic Other screening for suspected conditions (not mental disorders or infectious disease) (10 sources) Encounter for screening for malignant neoplasm of cervix; Translations: [Encounter for screening mammogram for malignant neoplasm of breast] Onset: 08-25-2022 Episodic Other upper respiratory disease (2 sources) Allergic rhinitis; Translations: [Allergic rhinitis, unspecified] Onset: 04-02-2023 04-02-2023 Chronic Other upper respiratory infections (2 sources) Sinusitis; Translations: [Chronic sinusitis, unspecified] Onset: 04-02-2023 [...] Problem Date Documented Da te Episodic/Chronic Mycoses (2 sources) Mycosis; Translations: [Candidiasis, unspecified] Onset: 04-02-2023 Resolved: 04-02-2023 04-02-2023 Episodic Other ear and sense organ disorders (2 sources) Tinnitus of left ear; Translations: [Tinnitus, left ear] Onset: 04-02-2023 04-04-2023 Episodic Other nutritional; endocrine; and metabolic disorders (2 sources) Obese class I; Translations: [Obesity, unspecified] Onset: 04-02-2023 Resolved: 04-02-2023 04-02-2023 Chronic Other upper respiratory infections (2 sources) Acute sinusitis; Translations: [Acute sinusitis, unspecified] Onset: 04-02-2023 Resolved: 04-02-2023 04-02-2023 Episodic Residual codes; unclassified (2 sources) Edema; Translations: [Edema, unspecified] Onset: 04-02-2023 04-02-2023 Episodic Results Test Name Value Interpretation Reference Range Facility PAP ACOG PANEL 2: 30 to 65on 10-10-2022 . . Normal [facility] Comment on above: Result Comment: Perf ormed at: WB Performed By: #### [id number] #### [facility] [address] [address] [address] Alondra Pham Age Gdln ACOG Testing 30-[address] [facility] Comment on above: Performed By: #### [id number] #### [facility] [address] [address] [address] Alondra Pham DIAGNOSIS: Comment Normal [facility] Comment on above: Result Comment: NEGA TIVE FOR INTRAEPITHELIAL LESION OR MALIGNANCY. Performed at: WB Performed By: #### [id number] #### [facility] [address] [address] [address] Alondra Pham HPV Aptima Negative Normal Negative [facility] Comment on above: Result Comment: This nucleic acid amplification test detects fourteen high-risk HPV types (16,18,31,33,35,39,45,51,52,56,58,59,66,68) without differentiation. Performed at: =G Performed By: #### [id number] #### [facility] [address] [address] [address] Alondra Pham HPV Genotype Reflex Comment Normal [facility] Comment on above: Result Comment: Crit eria not met, HPV Genotype not performed. Performed at: WB Performed By: #### [id number] #### [facility] [address] [place] [address] Dr. Alondra Pham Methodology: CTIM Normal [facility] Comment on above: Result Comment: The Thin Prep(R) Coremaker Pipe was unable to read this specimen. Therefore a manual review was performed. Performed at: WB Performed By: #### [id number] #### [facility] [address] [place] [address] Dr. Alondra Pham Note: Comment Normal [facility] Comment on above: Result Comment: The Pap smear is a screening test designed to aid in the detection of premalignant and malignant conditions of the uterine cervix. It is not a diagnostic procedure and should not be used as the sole means of detecting cervical cancer. Both false-positive and false-negative reports do occur. . Performed at: WB Performed By: #### [id number] #### [facility] [address] [place] [address] Dr. Alondra Pham Performed by: Comment Normal [facility] Comment on above: Result Comment: Usman Lim, Foot Setter (ASCP) Performed at: WB Performed By: #### [id number] #### [facility] [address] [place] [address] Dr. Alondra Pham Specimen adequacy: Comment Normal [facility] Comment on above: Result Comment: Sati sfactory for evaluation. Endocervical and/or squamous metaplastic cells (endocervical component) are present. Performed at: WB Performed By: #### [id number] #### [facility] [address] [place] [address] Dr. Alondra Pham MG MAMM SCREEN 3D LUCRECIA CADon 08-25-2022 MG MAMM SCREEN 3D LUCRECIA CAD Patient: ANKIT ROMERO Exam Date: 08/25/2022 : 1965 Gender:F Ordering : DR TOMMY RENO . Admission #: [id number] Family : DR ONI WHITE . Order #: [id number] CLICK HERE TO VIEW EXAM RADIOLOGY REPORT [...] lymphoma cancer at age 73. LOCATION: [facility] BREAST COMPOSITION: Scattered areas fibroglandular density. FINDINGS: [...] M.D. on 08/28/2022 at 09:11 Normal [facility] CBC AUTO DIFFon 06-02-2022 BASO # 0.0 103/ul Normal 0.0-0.1 [facility] Comment on above: Performed By: #### C BC #### [facility] [address] [place] [address] Dr. Alondra Pham Basophils/100 WBC (Bld) 0.4 % Normal 0.2-2.0 [facility] Comment on above: Performed By: #### C BC #### [facility] [address] [place] [address] Dr. Alondra Pham EO # 0.1 103/ul Normal 0.0-0.7 [facility] Comment on above: Performed By: #### C BC #### [facility] [address] [place] [address] Dr. Alondra Pham Eosinophils/100 WBC (Bld) 1.8 % Normal 0.9-7.[address] [facility] Comment on above: Performed By: #### C BC #### [facility] [address] [place] [address] Dr. Alondra Pham Erythrocyte distribution width (RBC) [Ratio] 14.9 % Normal 11.0-15.[address] [facility] Comment on above: Performed By: #### C BC #### [facility] [address] [place] [address] Dr. Alondra Pham Hematocrit (Bld) [Volume fraction] 46.1 % Normal 36.0-48.[address] [facility] Comment on above: Performed By: #### C BC #### [facility] [address] [place] [address] Dr. Aolndra Pham Hemoglobin (Bld) [Mass/Vol] 14.9 g/dL Normal 12.0-16.[address] [facility] Comment on above: Performed By: #### C BC #### [facility] [address] [place] [address] Dr. Alondra Pham IG # 0.05 10e3/ul Critically high 0.00-0.03 [facility] Comment on above: Performed By: #### C BC #### [facility] [address] [place] [address] Dr. Alondra Pham IG % 0.7 % Critically high 0.0-0.5 [facility] Comment on above: Performed By: #### C BC #### [facility] [address] [place] [address] Dr. Alondra Pham LYMPH # 2.2 103/ul Normal 1.2-3.[address] [facility] Comment on above: Performed By: #### C BC #### [facility] [address] [place] [address] Dr. Alondra Pham Lymphocytes/100 WBC (Bld) 29.2 % Normal 20.5-60.[address] [facility] Comment on above: Performed By: #### C BC #### [facility] [address] [place] [address] Dr. Alondra Pham MANUAL DIFF REQ NO Normal [facility] Comment on above: Performed By: #### C BC #### [facility] [address] [place] [address] Dr. Alondra Pham MCH (RBC) [Entitic mass] 28.3 pg Normal 26.7-34.0 [facility] Comment on above: Performed By: #### C BC #### [facility] [address] [address] [address] Alondra Pham MCHC (RBC) [Mass/Vol] 32.3 g/dL Normal 29.9-35.[address] [facility] Comment on above: Performed By: #### C BC #### [facility] [address] [address] [address] Alondra Pham MCV (RBC) [Entitic vol] 87.5 fL Normal 81.0-99.[address] [facility] Comment on above: Performed By: #### C BC #### [facility] [address] [place] [address] Dr. Alondra Pham MONO # 0.7 103/ul Normal 0.3-0.[address] [facility] Comment on above: Performed By: #### C BC #### [facility] [address] [place] [address] Dr. Alondra Pham Monocytes/100 WBC (Bld) 9.2 % Normal 1.7-12.[address] [facility] Comment on above: Performed By: #### C BC #### [facility] [address] [place] [address] Dr. Alondra Pham NEUT # 4.5 103/ul Normal 1.4-6.[address] [facility] Comment on above: Performed By: #### C BC #### [facility] [address] [place] [address] Dr. Alondra Pham Neutrophils/100 WBC (Bld) 58.7 % Normal 43.0-75.[address] [facility] Comment on above: Performed By: #### C BC #### [facility] [address] [place] [address] Dr. Alondra Pham Platelet mean volume (Bld) [Entitic vol] 11.0 fL Normal 9.5-13.5 [facility] Comment on above: Performed By: #### C BC #### [facility] [address] [place] [address] Dr. Alondra Pham PLT 299 103/ul Normal 150-450 [facility] Comment on above: Performed By: #### C BC #### [facility] [address] [place] [address] Dr. Alondra Pham RBC 5.27 106/ul Normal 4.20-5.[address] [facility] Comment on above: Performed By: #### C BC #### [facility] [address] [place] [address] Dr. Alondra Pham WBC 7.6 103/ul Normal 4.0-11.[address] [facility] Comment on above: Performed By: #### C BC #### [facility] [address] [place] [address] Dr. Alondra Pham GLYCOHEMOGLOBIN A1Con 2021 ADA RECOMMENDATION SEE BELOW Normal [facility] Comment on above: Result Comment: ADA RECOMMENDED LIMIT 4.0 - 6.0 ADA THERAPEUTIC TARGET < 7.0 ACTION SUGGESTED > 7.0 Performed By: #### A 1C #### [facility] [address] [place] [address] Dr. Alondra Pham Glucose [Mass/Vol] 120 mg/dL Normal [facility] Comment on above: Performed By: #### A 1C #### [facility] [address] [place] [address] Dr. Alondra Pham HbA1c (Bld) [Mass fraction] 5.8 % Normal 4.5-6.[address] [facility] Comment on above: Performed By: #### A 1C #### [facility] [address] [place] [address] Dr. Alondra Pham LIPID PROFILEon 06-02-2022 CHOL-HDL RATIO NORM SEE BELOW Normal [facility] Comment on above: Result Comment: 3.3 - 4.4 LOW RISK 4.4 - 7.1 AVERAGE RISK 7.1 - 11.0 MODERATE RISK >11.0 HIGH RISK Performed By: #### L IVER, BMP, TSH, LIPID #### [facility] [address] [place] [address] Dr. Alondra Pham Cholesterol [Mass/Vol] 231 mg/dL Critically high <=[address] [facility] Comment on above: Performed By: #### L IVER, BMP, TSH, LIPID #### [facility] [address] [address] [address] Alondra Pham Cholesterol in HDL [Mass/Vol] 51 mg/dL Normal 40-[address] [facility] Comment on above: Performed By: #### L IVER, BMP, TSH, LIPID #### [facility] [address] [address] [address] Alondra Pham Cholesterol in LDL [Mass/Vol] 140.8 mg/dL Normal [facility] Comment on above: Performed By: #### L IVER, BMP, TSH, LIPID #### [facility] [address] [address] [address] Alondra Pham Cholesterol.total/Ch olesterol in HDL [Mass ratio] 4.5 {ratio} Normal [facility] Comment on above: Performed By: #### L IVER, BMP, TSH, LIPID #### [facility] [address] [address] [address] Alondra Pham HDL NORMAL > or = 60 mg/dl - LO W CARDIOVASCULAR RISK <40 mg/dl - HIGH CARDIOVASCULAR RISK Normal [facility] Comment on above: Performed By: #### L IVER, BMP, TSH, LIPID #### [facility] [address] [address] [address] Alondra Pham LDL CALC NORMAL SEE BELOW Normal [facility] Comment on above: Result Comment: <100 mg/dl OPTIMAL 100 - 129 mg/dl NEAR OR ABOVE OPTIMAL 130 - 159 mg/dl BORDERLINE HIGH 160 - 189 mg/dl HIGH >190 mg/dl VERY HIGH Performed By: #### L IVER, BMP, TSH, LIPID #### [facility] [address] [address] [address] Alondra Pham Triglyceride [Mass/Vol] 196 mg/dL Critically high <=150 [facility] Comment on above: Performed By: #### L IVER, BMP, TSH, LIPID #### [facility] [address] [address] [address] Alondra Pham VLDL CALC 39.2 mg/dL Normal [facility] Comment on above: Performed By: #### L IVER, BMP, TSH, LIPID #### [facility] [address] [place] [address] Dr. Alondra Pham LIVER PROFILEon 06-02-2022 Albumin [Mass/Vol] 3.7 g/dL Normal 3.4-5.0 [facility] Comment on above: Performed By: #### L IVER, BMP, TSH, LIPID #### [facility] [address] [place] [address] Dr. Alondra Pham Albumin/Globulin [Mass ratio] 0.9 {ratio} Normal [facility] Comment on above: Performed By: #### L IVER, BMP, TSH, LIPID #### [facility] [address] [place] [address] Dr. Alondra Pham ALP [Catalytic activity/Vol] 95 U/L Normal 46-[address] [facility] Comment on above: Performed By: #### L IVER, BMP, TSH, LIPID #### [facility] [address] [place] [address] Dr. Alondra Pham ALT [Catalytic activity/Vol] 23 U/L Normal 14-[address] [facility] Comment on above: Performed By: #### L IVER, BMP, TSH, LIPID #### [facility] [address] [place] [address] Dr. Alondra Pham AST [Catalytic activity/Vol] 16 U/L Normal 15-[address] [facility] Comment on above: Performed By: #### L IVER, BMP, TSH, LIPID #### [facility] [address] [place] [address] Dr. Alondra Pham BILI, CONJUGATED 0.1 mg/dL Normal 0.0-0.2 [facility] Comment on above: Performed By: #### L IVER, BMP, TSH, LIPID #### [facility] [address] [place] [address] Dr. Alondra Phma Bilirubin [Mass/Vol] 0.6 mg/dL Normal 0.2-1.[address] [facility] Comment on above: Performed By: #### L IVER, BMP, TSH, LIPID #### [facility] [address] [place] [address] Dr. Alondra Pham Globulin (S) [Mass/Vol] 3.9 g/dL Normal [facility] Comment on above: Performed By: #### L IVER, BMP, TSH, LIPID #### [facility] [address] [address] [address] Alondra Pham Protein [Mass/Vol] 7.6 g/dL Normal 6.4-8.2 [facility] Comment on above: Performed By: #### L IVER, BMP, TSH, LIPID #### [facility] [address] [place] [address] Dr. Alondra Pham PROF CHEM 8 (BAS METB)on Anion gap [Moles/Vol] 12.3 mmol/L Normal [facility] Comment on above: Performed By: #### L IVER, BMP, TSH, LIPID #### [facility] [address] [place] [address] Dr. Alondra Pham Calcium [Mass/Vol] 9.2 mg/dL Normal 8.5-10.1 [facility] Comment on above: Performed By: #### L IVER, BMP, TSH, LIPID #### [facility] [address] [address] [address] Alondra Pham Chloride [Moles/Vol] 101 mmol/L Normal 98-[address] [facility] Comment on above: Performed By: #### L IVER, BMP, TSH, LIPID #### [facility] [address] [address] [address] Alondra Pham CO2 [Moles/Vol] 28.4 mmol/L Normal 21.0-32.0 [facility] Comment on above: Performed By: #### L IVER, BMP, TSH, LIPID #### [facility] [address] [address] [address] Alondra Pham Creatinine [Mass/Vol] 1.10 mg/dL Critically high 0.55-1.[address] [facility] Comment on above: Performed By: #### L IVER, BMP, TSH, LIPID #### [facility] [address] [place] [address] Dr. Alondra Pham EGFR-AF BARBADIAN >60 Normal >=60 [facility] Comment on above: Performed By: #### L IVER, BMP, TSH, LIPID #### [facility] [address] [address] [address] Alondra Pham EGFR-NON AF BARBADIAN 51 mL/min/1.73m2 Critically low >=[address] [facility] Comment on above: Performed By: #### L IVER, BMP, TSH, LIPID #### [facility] [address] [address] [address] Alondra Pham Glucose [Mass/Vol] 109 mg/dL Critically high 74-106 [facility] Comment on above: Performed By: #### L IVER, BMP, TSH, LIPID #### [facility] [address] [address] [address] Alondra Pham Potassium [Moles/Vol] 3.7 mmol/L Normal 3.5-5.[address] [facility] Comment on above: Performed By: #### L IVER, BMP, TSH, LIPID #### [facility] [address] [address] [address] Alondra Pham Sodium [Moles/Vol] 138 mmol/L Normal 136-145 [facility] Comment on above: Performed By: #### L IVER, BMP, TSH, LIPID #### [facility] [address] [address] [address] Alondra Pham Urea nitrogen [Mass/Vol] 33.0 mg/dL Critically high 7.0-18.[address] [facility] Comment on above: Performed By: #### L IVER, BMP, TSH, LIPID #### [facility] [address] [place] [address] Dr. Alondra Pham Urea nitrogen/Creatinine [Mass ratio] 30.0 mg/mg Normal [facility] Comment on above: Performed By: #### L IVER, BMP, TSH, LIPID #### [facility] [address] [address] [address] Alondra Pham TSHon 06-02-2022 TSH 1.888 uIU/mL Normal 0.358-3.740 [facility] Comment on above: Performed By: #### L IVER, BMP, TSH, LIPID #### [facility] [address] [address] [address] Alondra Pham XR ankle LT min 3V*on 2021 XR ankle LT min 3V* [facility] Main [place] [address] [place] [address] XRay Report Signed Patient: Aknit Romero MR#: [id number] : 1965 Acct:[id number] Age/Sex: 56 / F ADM Date: 05/10/22 Loc: XDCLY Room: Type: [facility] Attending Dr: Shaikh Lowell HARRISON Copies to: [...] Anam Yanes M.D.05/10/2022 4:33 PM Dictation Location: [place] [address] Transcribed By: [facility] 05/10/22 1633 Dictated By: Anam Yanes II, MD 05/10/22 1631 Signed By: 05/10/22 1633 [facility] Encounters Encounter Date Encounter Type Care Provider Facility Start: 09-17-2023 Chart abstracting Oni White DO Work Phone: [facility] Start: 09-07-2023 Telephone encounter Anita pineda MD Work Phone: [facility] Start: 09-05-2023 Patient encounter procedure Anita Dee MD Work Phone: [facility] Start: 09-05-2023 End: 09-05-2023 ambulatory TOMMY RENO Not Available Start: 10-03-2022 End: 10-03-[address] ONI WHITE . Facility:[facility] Start: 08-25-2022 End: 08-26-[address] TOMMY RENO Facility:[facility] Start: 06-07-2022 Encounter for genera l adult medical examination without abnormal findings DR TOMMY RENO [facility] Start: 06-02-2022 End: 06-03-[address] TOMMY RENO Facility:[facility] Start: 06-02-2022 End: 06-03-2022 Encounter for general adult medical examination without abnormal findings DR TOMMY ERNO Facility:[facility] Start: 05-10-2022 End: 05-10-2022 ambulatory Shaikh Lowell [facility] Work Phone: Start: 05-10-2022 End: 05-10-2022 Patient encounter procedure MD Shaikh Etienne Work Phone: [facility] [place] Procedures Date Procedure Procedure Detail Performing Clinician Start: 09-14-2023 Mammography Oni arizmendi DO Work Phone: Start: 05-10-2022 X-ray of left ankle MD Shaikh Etienne Work Phone: Plan of Treatment Date Care Activity Detail Author Start: 08-02-2025 Screening for malign ant neoplasm of colon [facility] Start: 09-14-2024 Screening for malign ant neoplasm of breast Mammogram [facility] Start: 03-03-2024 End: 03-03-2024 Patient encounter procedure 03/03/2024 10:30 AM EDT Office Visit [facility] [address] [place] [id number] Tommy Reno MD [address] [place] [id number] [facility] Start: 10-09-2023 End: 10-09-2023 Patient encounter procedure 10/09/2023 11:00 AM EST Office Visit [facility] [address] [place] [address] Oni White, DO [address] [place] [address] [facility] Start: 2005 Screening for malign ant neoplasm of breast Mammogram [facility] Start: 1995 Screening for malign ant neoplasm of cervix [facility] Start: 1986 Screening for malign ant neoplasm of cervix Pap Smear [facility] Start: 1965 Screening for malign ant neoplasm of colon [facility] Immunizations Immunization Date Immunization Notes Care Provider Fa [facility] 08-29-2022 Moderna SARS-CoV-2 50mcg/0.5mL Booster Anita Dee MD Work Phone: [facility] 08-04-2019 zoster vaccine recombinant Anita Dee MD Work Phone: [facility] 06-03-2019 zoster vaccine recombinant Anita Dee MD Work Phone: [facility] Payers Date Payer Category Payer Unknown [employer] [id number] 2022-Present [address] [address] [place] [address] [id number] 2022 Self-pay [id number] 1965 Unknown [id number] 1965 Unknown [id number] 1965 Unknown [id number] 1965 Unknown [id number] 1959 Unknown [id number] 1959 Unknown [id number] Unknown [id number] Worker's Compensation [facility] [id number] Social History Date Type Detail Facility Tobacco smoking stat [facility] Unknown if ever smoked [facility] Work Phone: Start: 1965 Sex Assigned At Female [facility] Start: 04-02-2023 Tobacco smoking stat [facility] Never smoked tobacco [facility] Start: 04-02-2023 Tobacco use and exposure Smoke less tobacco non-user [facility] Start: 09-05-2023 End: 09-17-2023 Alcohol intake Lifetime non-drinker (finding) [facility] Start: 09-04-2023 End: 09-05-2023 [...] Not at all [facility] (I/We) worried wheth er (my/our) food would run out before [...] Note Facility Evaluation note No assessment information availa [facility] Work Phone: Advance Directives Advance Directive Response Recorded Date/ Time Advance Directives No November 19, 019 1:28pm Summary Purpose Family History No Family History Records FoundNo Family History Records FoundNo Family History Records Found Additional Source Comments Care Teams (unrecognized sec tion and content) Team Status: Inactive Member Role Status Dates Shaikh Lowell MD Attending Provider Active [employer] Supervisor Relationship Specialty Start Date End Date Tommy Reno MD [address] [place] [address] PCP - General Family Medicine 08/28/23 Cabin Supervisor Relationship Specialty Start Date End Date Tommy Reno MD [address] [place] [address] PCP - General Family Medicine 08/28/23 Goals (unrecognized section and content) Goals may be documented in a n alternate section INFORMATION SOURCE (unrecogn ized section and content) DATE CREATED AUTHOR 10/12/2022 [facility] DATE CREATED AUTHOR AUTHOR'S ORGANIZ ATION 11/23/2022 [facility] DATE CREATED AUTHOR AUTHOR'S ORGANIZ ATION 09/06/2023 [facility] FOR RECORDS PERTAINING TO PATIENTS WHO ARE [...] BE BASED ON THE PRIMARY CLINICAL RECORDS. [facility] [employer] provides no warranty or guarantee of the accuracy or completeness of information in this document.
[2023-10-14 17:09] LABS: Age Gdln ACOG Testing Note (.); HPV Aptima Negative (Negative); IGP, Aptima HPV, rfx 16/18,45 Note (.)
== END 2023-10-09 19:54 | disposition home or self-care (01) ==
LOC: LAB 19:53
PROVIDERS: PCP Family Medicine; Visit Provider Obstetrics & Gynecology
DX: Z01.419 Encounter for gynecological examination (general) (routine) without abnormal findings (principal)
CPT/HCPCS: 87624; G0145

== ENCOUNTER 2023-10-12 10:49 | Outpatient (OUT) | payer OTHER, SELFPAY ==
--- NOTE | 2023-10-12 10:52 | XR_ITS ---
[address] [address] Patient Name: ANKIT SULLIVAN MRN: [id number] date: 1965 Sex: F Assigned Patient Location: [facility] Current Patient Location: [facility] Accession/Order Number: [id number] Exam Date: 10/12/2023 11:00 Report Date: 10/12/2023 12:17 At the request of: ONI VILLAGRAN Procedure: XR DEXA axial skeleton EXAMINATION: XR DEXA axial skeleton HISTORY: Postmenopausal State Z78.0 COMPARISON: DEXA bone densitometry 03/03/2019 TECHNIQUE: Dual-energy X-ray absorptiometry (DXA) was performed. FINDINGS: SPINE ANALYSIS: Average bone mineral density is 1.123 g/cm2. T-score (standard deviation relative to young adult mean): -0.5 . -2.9% change since prior study. HIP ANALYSIS: Lowest bone mineral density is within the left femoral trochanter, 0.64 g/cm2. T-score (standard deviation relative to young adult mean): -2.0 . -6.2% change since prior study. XR/XR DEXA axial skeleton IMPRESSION: [employer] Classification: Osteopenia - Moderate Fracture Risk Electronically authenticated by: DOMINICK HAINES Date: 10/12/2023 12:17
--- OUTSIDE RECORDS SUMMARY | 2023-10-12 10:58 | XMS_ITS | CCD ---
Author Name Unknown Address [address] [facility] [address] [place] [address] Organization [facility] Care Team Providers Care Manufacturing Weaver Name Role Phone MD Elvira Etienne Attending [...] Unavailable Tommy Reno MD Primary Care Provider [phone] Allergies Allergy Classification Reported Allergen(s) Allergy Type [...] 30 to 65on 10-10-2022 . . Normal [facility] Comment on above: Result Comment: Perf ormed at: WB Performed By: #### [id number] #### [facility] [address] [address] [address] Alondra Pham Age Gdln ACOG Testing 30-65 Normal [facility] Comment on above: Performed By: #### [id number] #### [facility] [address] [address] [address] Alondra Pham DIAGNOSIS: Comment Normal [facility] Comment on above: Result Comment: NEGA TIVE FOR INTRAEPITHELIAL LESION OR MALIGNANCY. Performed at: WB Performed By: #### [id number] #### [facility] [address] [address] [address] Alondra Pham HPV Aptima Negative Normal Negative [facility] Comment on above: Result Comment: This nucleic acid amplification test detects fourteen high-risk HPV types (16,18,31,33,35,39,45,51,52,56,58,59,66,68) without differentiation. Performed at: =G Performed By: #### [id number] #### [facility] [address] [address] [address] Alondra Pham HPV Genotype Reflex Comment Normal [facility] Comment on above: Result Comment: Crit eria not met, HPV Genotype not performed. Performed at: WB Performed By: #### [id number] #### [facility] [address] [place] [address] Dr. Alondra Pham Methodology: CTIM Normal [facility] Comment on above: Result Comment: The Thin Prep(R) Smoke Jumper was unable to read this specimen. Therefore a manual review was performed. Performed at: WB Performed By: #### [id number] #### [facility] [address] [place] [address] Dr. Alondra Pham Note: Comment Normal [facility] Comment on above: Result Comment: The Pap smear is a screening test designed to aid in the detection of premalignant and malignant conditions of the uterine cervix. It is not a diagnostic procedure and should not be used as the sole means of detecting cervical cancer. Both false-positive and false-negative reports do occur. . Performed at: WB Performed By: #### [id number] #### [facility] [address] [place] [address] Dr. Alondra Pham Performed by: Comment Normal [facility] Comment on above: Result Comment: Usman Lim, Ocean Freight Agent (ASCP) Performed at: WB Performed By: #### [id number] #### [facility] [address] [place] [address] Dr. Alondra Pham Specimen adequacy: Comment Normal [facility] Comment on above: Result Comment: Sati sfactory for evaluation. Endocervical and/or squamous metaplastic cells (endocervical component) are present. Performed at: WB Performed By: #### 4 [id number] #### [facility] [address] [place] [address] Dr. Alondra Pham MG MAMM SCREEN 3D LUCRECIA CADon 08-25-2022 MG MAMM SCREEN 3D LUCRECIA CAD Patient: ANKIT ROMERO Exam Date: 08/25/2022 : 1965 Gender:F Ordering : DR TOMMY RENO . Admission #: [id number] Family : DR ONI WHITE . Order #: [id number] CLICK HERE TO VIEW EXAM RADIOLOGY REPORT [...] lymphoma cancer at age 73. LOCATION: [facility] BREAST COMPOSITION: Scattered areas fibroglandular density. [...] M.D. on 08/28/2022 at 09:11 Normal [facility] CBC AUTO DIFFon 06-02-2022 BASO # 0.0 103/ul Normal 0.0-0.1 [facility] Comment on above: Performed By: #### C BC #### [facility] [address] [place] [address] Dr. Alondra Pham Basophils/100 WBC (Bld) 0.4 % Normal 0.2-2.0 [facility] Comment on above: Performed By: #### C BC #### [facility] [address] [place] [address] Dr. Alondra Pham EO # 0.1 103/ul Normal 0.0-0.7 [facility] Comment on above: Performed By: #### C BC #### [facility] [address] [place] [address] Dr. Alondra Pham Eosinophils/100 WBC (Bld) 1.8 % Normal 0.9-7.0 [facility] Comment on above: Performed By: #### C BC #### [facility] [address] [place] [address] Dr. Alondra Pham Erythrocyte distribution width (RBC) [Ratio] 14.9 % Normal 11.0-15.0 [facility] Comment on above: Performed By: #### C BC #### [facility] [address] [place] [address] Dr. Alondra Pham Hematocrit (Bld) [Volume fraction] 46.1 % Normal 36.0-48.0 [facility] Comment on above: Performed By: #### C BC #### [facility] [address] [place] [address] Dr. Alondra Pham Hemoglobin (Bld) [Mass/Vol] 14.9 g/dL Normal 12.0-16.0 [facility] Comment on above: Performed By: #### C BC #### [facility] [address] [place] [address] Dr. Alondra Pham IG # 0.05 10e3/ul Critically high 0.00-0.03 [facility] Comment on above: Performed By: #### C BC #### [facility] [address] [place] [address] Dr. Alondra Pham IG % 0.7 % Critically high 0.0-0.5 [facility] Comment on above: Performed By: #### C BC #### [facility] [address] [place] [address] Dr. Alondra Pham LYMPH # 2.2 103/ul Normal 1.2-3.8 [facility] Comment on above: Performed By: #### C BC #### [facility] [address] [place] [address] Dr. Alondra Pham Lymphocytes/100 WBC (Bld) 29.2 % Normal 20.5-60.0 [facility] Comment on above: Performed By: #### C BC #### [facility] [address] [place] [address] Dr. Alondra Pham MANUAL DIFF REQ NO Normal [facility] Comment on above: Performed By: #### C BC #### [facility] [address] [place] [address] Dr. Alondra Pham MCH (RBC) [Entitic mass] 28.3 pg Normal 26.7-34.0 [facility] Comment on above: Performed By: #### C BC #### [facility] [address] [address] [address] Alondra Pham MCHC (RBC) [Mass/Vol] 32.3 g/dL Normal 29.9-35.2 [facility] Comment on above: Performed By: #### C BC #### [facility] [address] [address] [address] Alondra Pham MCV (RBC) [Entitic vol] 87.5 fL Normal 81.0-99.0 [facility] Comment on above: Performed By: #### C BC #### [facility] [address] [place] [address] Dr. Alondra Pham MONO # 0.7 103/ul Normal 0.3-0.8 [facility] Comment on above: Performed By: #### C BC #### [facility] [address] [place] [address] Dr. Alondra Pham Monocytes/100 WBC (Bld) 9.2 % Normal 1.7-12.0 [facility] Comment on above: Performed By: #### C BC #### [facility] [address] [place] [address] Dr. Alondra Pham NEUT # 4.5 103/ul Normal 1.4-6.5 [facility] Comment on above: Performed By: #### C BC #### [facility] [address] [place] [address] Dr. Alondra Pham Neutrophils/100 WBC (Bld) 58.7 % Normal 43.0-75.0 [facility] Comment on above: Performed By: #### C BC #### [facility] [address] [place] [address] Dr. Alondra Pham Platelet mean volume (Bld) [Entitic vol] 11.0 fL Normal 9.5-13.5 [facility] Comment on above: Performed By: #### C BC #### [facility] [address] [place] [address] Dr. Alondra Pham PLT 299 103/ul Normal 150-450 [facility] Comment on above: Performed By: #### C BC #### [facility] [address] [place] [address] Dr. Alondra Pham RBC 5.27 106/ul Normal 4.20-5.40 [facility] Comment on above: Performed By: #### C BC #### [facility] [address] [place] [address] Dr. Alondra Pham WBC 7.6 103/ul Normal 4.0-11.0 [facility] Comment on above: Performed By: #### C BC #### [facility] [address] [place] [address] Dr. Alondra Pham GLYCOHEMOGLOBIN A1Con 2021 ADA RECOMMENDATION SEE BELOW Normal [facility] Comment on above: Result Comment: ADA RECOMMENDED LIMIT 4.0 - 6.0 ADA THERAPEUTIC TARGET < 7.0 ACTION SUGGESTED > 7.0 Performed By: #### A 1C #### [facility] [address] [place] [address] Dr. Alondra Pham Glucose [Mass/Vol] 120 mg/dL Normal [facility] Comment on above: Performed By: #### A 1C #### [facility] [address] [place] [address] Dr. Alondra Pham HbA1c (Bld) [Mass fraction] 5.8 % Normal 4.5-6.2 [facility] Comment on above: Performed By: #### A 1C #### [facility] [address] [place] [address] Dr. Alondra Pham LIPID PROFILEon 06-02-2022 CHOL-HDL RATIO NORM SEE BELOW Normal [facility] Comment on above: Result Comment: 3.3 - 4.4 LOW RISK 4.4 - 7.1 AVERAGE RISK 7.1 - 11.0 MODERATE RISK >11.0 HIGH RISK Performed By: #### L IVER, BMP, TSH, LIPID #### [facility] [address] [place] [address] Dr. Alondra Pham Cholesterol [Mass/Vol] 231 mg/dL Critically high <=200 [facility] Comment on above: Performed By: #### L IVER, BMP, TSH, LIPID #### [facility] [address] [address] [address] Alondra Pham Cholesterol in HDL [Mass/Vol] 51 mg/dL Normal 40-60 [facility] Comment on above: Performed By: #### L IVER, BMP, TSH, LIPID #### [facility] [address] [address] [address] Alondra Pham Cholesterol in LDL [Mass/Vol] 140.8 mg/dL Normal [facility] Comment on above: Performed By: #### L IVER, BMP, TSH, LIPID #### [facility] [address] [address] [address] Alondra Pham Cholesterol.total/Ch olesterol in HDL [Mass ratio] 4.5 {ratio} Normal [facility] Comment on above: Performed By: #### L IVER, BMP, TSH, LIPID #### [facility] [address] [address] [address] Alondra Pham HDL NORMAL > or = 60 mg/dl - LO W CARDIOVASCULAR RISK <40 mg/dl - HIGH CARDIOVASCULAR RISK Normal [facility] Comment on above: Performed By: #### L IVER, BMP, TSH, LIPID #### [facility] [address] [address] [address] Alondra Pham LDL CALC NORMAL SEE BELOW Normal [facility] Comment on above: Result Comment: <100 mg/dl OPTIMAL 100 - 129 mg/dl NEAR OR ABOVE OPTIMAL 130 - 159 mg/dl BORDERLINE HIGH 160 - 189 mg/dl HIGH >190 mg/dl VERY HIGH Performed By: #### L IVER, BMP, TSH, LIPID #### [facility] [address] [address] [address] Alondra Pham Triglyceride [Mass/Vol] 196 mg/dL Critically high <=150 [facility] Comment on above: Performed By: #### L IVER, BMP, TSH, LIPID #### [facility] [address] [address] [address] Alondra Pham VLDL CALC 39.2 mg/dL Normal [facility] Comment on above: Performed By: #### L IVER, BMP, TSH, LIPID #### [facility] [address] [place] [address] Dr. Alondra Pham LIVER PROFILEon 06-02-2022 Albumin [Mass/Vol] 3.7 g/dL Normal 3.4-5.[address] [facility] Comment on above: Performed By: #### L IVER, BMP, TSH, LIPID #### [facility] [address] [place] [address] Dr. Alondra Pham Albumin/Globulin [Mass ratio] 0.9 {ratio} Normal [facility] Comment on above: Performed By: #### L IVER, BMP, TSH, LIPID #### [facility] [address] [place] [address] Dr. Alondra Pham ALP [Catalytic activity/Vol] 95 U/L Normal 46-116 [facility] Comment on above: Performed By: #### L IVER, BMP, TSH, LIPID #### [facility] [address] [place] [address] Dr. Alondra Pham ALT [Catalytic activity/Vol] 23 U/L Normal 14-59 [facility] Comment on above: Performed By: #### L IVER, BMP, TSH, LIPID #### [facility] [address] [place] [address] Dr. Alondra Pham AST [Catalytic activity/Vol] 16 U/L Normal 15-37 [facility] Comment on above: Performed By: #### L IVER, BMP, TSH, LIPID #### [facility] [address] [place] [address] Dr. Alondra Pham BILI, CONJUGATED 0.1 mg/dL Normal 0.0-0.2 [facility] Comment on above: Performed By: #### L IVER, BMP, TSH, LIPID #### [facility] [address] [place] [address] Dr. Alondra Pham Bilirubin [Mass/Vol] 0.6 mg/dL Normal 0.2-1.0 [facility] Comment on above: Performed By: #### L IVER, BMP, TSH, LIPID #### [facility] [address] [place] [address] Dr. Alondra Pham Globulin (S) [Mass/Vol] 3.9 g/dL Normal [facility] Comment on above: Performed By: #### L IVER, BMP, TSH, LIPID #### [facility] [address] [address] [address] Alondra Pham Protein [Mass/Vol] 7.6 g/dL Normal 6.4-8.2 [facility] Comment on above: Performed By: #### L IVER, BMP, TSH, LIPID #### [facility] [address] [place] [address] Dr. Alondra Pham PROF CHEM 8 (BAS METB)on Anion gap [Moles/Vol] 12.3 mmol/L Normal [facility] Comment on above: Performed By: #### L IVER, BMP, TSH, LIPID #### [facility] [address] [place] [address] Dr. Alondra Pham Calcium [Mass/Vol] 9.2 mg/dL Normal 8.5-10.1 [facility] Comment on above: Performed By: #### L IVER, BMP, TSH, LIPID #### [facility] [address] [address] [address] Alondra Pham Chloride [Moles/Vol] 101 mmol/L Normal 98-107 [facility] Comment on above: Performed By: #### L IVER, BMP, TSH, LIPID #### [facility] [address] [address] [address] Alondra Pham CO2 [Moles/Vol] 28.4 mmol/L Normal 21.0-32.[address] [facility] Comment on above: Performed By: #### L IVER, BMP, TSH, LIPID #### [facility] [address] [address] [address] Alondra Pham Creatinine [Mass/Vol] 1.10 mg/dL Critically high 0.55-1.02 [facility] Comment on above: Performed By: #### L IVER, BMP, TSH, LIPID #### [facility] [address] [place] [address] Dr. Alondra Pham EGFR-AF BURMESE >60 Normal >=60 [facility] Comment on above: Performed By: #### L IVER, BMP, TSH, LIPID #### [facility] [address] [address] [address] Alondra Pham EGFR-NON AF BURMESE 51 mL/min/1.73m2 Critically low >=60 [facility] Comment on above: Performed By: #### L IVER, BMP, TSH, LIPID #### [facility] [address] [address] [address] Alondra Pham Glucose [Mass/Vol] 109 mg/dL Critically high 74-106 [facility] Comment on above: Performed By: #### L IVER, BMP, TSH, LIPID #### [facility] [address] [address] [address] Alondra Pham Potassium [Moles/Vol] 3.7 mmol/L Normal 3.5-5.1 [facility] Comment on above: Performed By: #### L IVER, BMP, TSH, LIPID #### [facility] [address] [address] [address] Alondra Pham Sodium [Moles/Vol] 138 mmol/L Normal 136-[address] [facility] Comment on above: Performed By: #### L IVER, BMP, TSH, LIPID #### [facility] [address] [address] [address] Alondra Pham Urea nitrogen [Mass/Vol] 33.0 mg/dL Critically high 7.0-18.0 [facility] Comment on above: Performed By: #### L IVER, BMP, TSH, LIPID #### [facility] [address] [place] [address] Dr. Alondra Pham Urea nitrogen/Creatinine [Mass ratio] 30.0 mg/mg Normal [facility] Comment on above: Performed By: #### L IVER, BMP, TSH, LIPID #### [facility] [address] [address] [address] Alondra Pham TSHon 06-02-2022 TSH 1.888 uIU/mL Normal 0.358-3.740 [facility] Comment on above: Performed By: #### L IVER, BMP, TSH, LIPID #### [facility] [address] [address] [address] Alondra Pham XR ankle LT min 3V*on 2021 XR ankle LT min 3V* [facility] [place] [address] [place] [address] XRay Report Signed Patient: Ankit Romero MR#: [id number] : 1965 Acct:[id number] Age/Sex: 56 / F ADM Date: 05/10/22 Loc: XDCLY Room: Type: [facility] Attending Dr: Shaikh Lowell HARRISON Copies to: [...] Anam Yanes M.D.05/10/2022 4:33 PM Dictation Location: [place] [address] Transcribed By: [facility] 05/10/22 1633 Dictated By: Anam Yanes II, MD 05/10/22 1631 Signed By: 05/10/22 1633 [facility] Encounters Encounter Date Encounter Type Care Provider Facility Start: 09-17-2023 Chart abstracting Oni White DO Work Phone: [facility] Start: 09-07-2023 Telephone encounter Anita pineda MD Work Phone: [facility] Start: 09-05-2023 Patient encounter procedure Anita Dee MD Work Phone: [facility] Start: 09-05-2023 End: 09-05-2023 ambulatory TOMMY RENO Not Available Start: 10-03-2022 End: 10-03-[address] ONI WHITE . Facility:[facility] Start: 08-25-2022 End: 08-26-[address] TOMMY RENO Facility:[facility] Start: 06-07-2022 Encounter for genera l adult medical examination without abnormal findings DR TOMMY RENO [facility] Start: 06-02-2022 End: 06-03-[address] TOMMY RENO Facility:[facility] Start: 06-02-2022 End: 06-03-2022 Encounter for general adult medical examination without abnormal findings DR TOMMY RENO Facility:[facility] Start: 05-10-2022 End: 05-10-2022 ambulatory Shaikh Lowell [facility] Work Phone: Start: 05-10-2022 End: 05-10-2022 Patient encounter procedure MD Shaikh Etienne Work Phone: [facility] Procedures Date Procedure Procedure Detail Performing Clinician Start: 09-14-2023 Mammography Oni airzmendi DO Work Phone: Start: 05-10-2022 X-ray of left ankle MD Shaikh Etienne Work Phone: Plan of Treatment Date Care Activity Detail Author Start: 08-02-2025 Screening for malign ant neoplasm of colon [facility] Start: 09-14-2024 Screening for malign ant neoplasm of breast Mammogram [facility] Start: 03-03-2024 End: 03-03-2024 Patient encounter procedure 03/03/2024 10:30 AM EDT Office Visit [facility] [address] [place] [phone] Tommy Reno MD [address] [place] [phone] [facility] Start: 10-09-2023 End: 10-09-2023 Patient encounter procedure 10/09/2023 11:00 AM EST Office Visit [facility] [address] [place] [address] Oni White, DO [address] [address] [facility] Start: 2005 Screening for malign ant neoplasm of breast Mammogram [facility] Start: 1995 Screening for malign ant neoplasm of cervix [facility] Start: 1986 Screening for malign ant neoplasm of cervix Pap Smear [facility] Start: 1965 Screening for malign ant neoplasm of colon [facility] Immunizations Immunization Date Immunization Notes Care Provider Fa [facility] 08-29-2022 Moderna SARS-CoV-2 50mcg/0.5mL Booster Anita Dee MD Work Phone: [facility] 08-04-2019 zoster vaccine recombinant Anita Dee MD Work Phone: [facility] 06-03-2019 zoster vaccine recombinant Anita Dee MD Work Phone: [facility] Payers Date Payer Category Payer Unknown [employer] [id number] 2022-Present [address] [address] [place] [address] [id number] 2022 Self-pay [id number] 1965 Unknown [id number] 1965 Unknown [id number] 1965 Unknown [id number] 1965 Unknown [id number] 1959 Unknown [id number] 1959 Unknown [id number] Unknown [id number] Worker's Compensation [facility] [id number] Social History Date Type Detail Facility Tobacco smoking stat [facility] Unknown if ever smoked [facility] Work Phone: Start: 1965 Sex Assigned At Female F [facility] Start: 04-02-2023 Tobacco smoking stat [facility] [...] Facility Evaluation note No assessment information availa [facility] Work Phone: Advance Directives Advance Directive Response Recorded Date/ Time Advance Directives No November 19, 019 1:28pm Summary Purpose Family History No Family History Records FoundNo Family History Records FoundNo Family History Records Found Additional Source Comments Care Teams (unrecognized sec tion and content) Team Status: Inactive Member Role Status Dates Shaikh Lowell MD Attending Provider Active [employer] Relationship Specialty Start Date End Date Tommy Reno MD [address] [place] [address] PCP - General Family Medicine 08/28/23 Manufacturing Weaver Relationship Specialty Start Date End Date Tommy Reno MD [address] [place] [address] PCP - General Family Medicine 08/28/23 Goals (unrecognized section and content) Goals may be documented in a n alternate section INFORMATION SOURCE (unrecogn ized section and content) DATE CREATED AUTHOR 10/12/2022 [facility] DATE CREATED AUTHOR AUTHOR'S ORGANIZ ATION 11/23/[address] [facility] DATE CREATED AUTHOR AUTHOR'S ORGANIZ ATION 09/06/2023 [facility] FOR RECORDS PERTAINING TO PATIENTS WHO [...] BE BASED ON THE PRIMARY CLINICAL RECORDS. [facility] [employer] provides no warranty or guarantee of the accuracy or completeness of information in this document.
== END 2023-10-12 10:50 | disposition home or self-care (01) ==
LOC: RAD 10:49
PROVIDERS: PCP Family Medicine; Visit Provider Obstetrics & Gynecology
DX: M85.80 Other specified disorders of bone density and structure, unspecified site (principal); Z78.0 Asymptomatic menopausal state
CPT/HCPCS: 77080

== ENCOUNTER 2024-09-15 10:13 | Outpatient (OUT) | payer OTHER, SELFPAY ==
--- OUTSIDE RECORDS SUMMARY | 2024-09-15 10:16 | XMS_ITS | CCD ---
Author Organization [facility] Care Team Providers Care Relay Adjuster Name Role Phone MD Elvira Etienne Attending Provider [phone] CHRISTOPHER ., DR BUNN Admitting Unavailable CHRISTOPHER ., DR BUNN Attending Unavailable NADERER, DR TOMMY Greene Primary Care Unavailable CRHISTOPHER ., DR BUNN Consulting Unavailable NADERER, DR TOMMY Greene Admitting Unavailable NADERER, DR TOMMY Greene Attending Unavailable NADERER, DR TOMMY Greene Primary Care Unavailable CHRISTOPHER ., DR BUNN Consulting Unavailable ZIEBER, DR ROBERT Raymond Consulting Unavailable NADERER, DR TOMMY Greene Consulting Unavailable NADERER, DR TOMMY Greene Admitting Unavailable NADERER, DR TOMMY Greene Attending Unavailable NADERER, DR TOMMY Greene Primary Care Unavailable NADERER, DR TOMMY Greene Consulting Unavailable Fawcesar, Attending Unavailable Diegowcesar, Admitting Unavailable NON STAFF Primary Care Unavailable Tommy Reno MD Primary Care Provider TOMMY RENO Attending Unavailable NADERER, TOMMY Attending Unavailable CHRISTOPHER, ONI Attending Unavailable CHRISTOPHER, ONI Attending Unavailable NADERER, TOMMY Attending Unavailable Allergies Allergy Classification Reported Allergen(s) Allergy Type Date of Onset Reaction(s) Facility (4 sources) cefdinir Drug Allergy 4 Other [facility] (4 sources) Iodine Drug Allergy 3 Hives, Itching, Rash, Swelling [facility] Work Phone: (4 sources) levoFLOXacin Drug Allergy 4 Other [facility] Work Phone: (4 sources) Mercury Drug Allergy 3 Hives, Itching [facility] (4 sources) Sulfonamides (Antibiotic) Drug Allergy 3 Hives, Itching, Rash, Swelling, Unknown [facility] (4 sources) Trimethoprim Drug Allergy 3 Unknown [facility] [...] 09/05/2023 Active biotin 10 mg oral capsule (4 sources) take 1 capsule by mouth in the morning biotin 10 MG capsule Take 1 capsule by mouth in the morning. Active Calcium Citrate / Vitamin D (4 sources) take 1 tablet by mouth once in the morning Calcium Citrate-Vitamin D (CALCIUM CITRATE +D PO) Take 1 tablet by mouth in the morning. Active take 1 tablet by matilde th once in the morning Calcium Citrate-Vitamin D (CALCIUM CITRA TE +D PO) Take 1 tablet by mouth in the morning. 0 Active celecoxib 200 mg oral capsule (4 sources) Nonsteroidal Anti-inflammatory Drug Start: 06-09-2024 take 1 capsule by mouth twice daily as needed celecoxib (CeleBREX) 200 MG capsule Indications: Migraine without aura and without status migrainosus, not intractable (CMS/HCC) TAKE 1 CAPSULE BY MOUTH TWICE DAILY NEEDED 180 capsule 3 06/09/2024 Active take 1 capsule by mouth in the m orning celecoxib (CeleBREX) 200 MG capsule Take 200 mg by mouth in the morning and 200 mg before bedtime. 0 Active cetirizine hydrochloride 10 mg oral tablet (4 sources) Histamine-1 Receptor Antagonist take 1 tablet by mouth in the morning cetirizine (ZyrTEC) 10 MG tablet Take 10 mg by mouth in the morning. Active ciprofloxacin 500 mg oral tablet (2 sources) Quinolone Antimicrobial Start: 08-28-19 End: 09-07-19 take 1 tablet by mouth in the morning ciprofloxacin (Cipro) 500 MG tablet Indications: Acute non-recurrent pansinusitis Take 1 tablet (500 mg) by mouth in the morning and 1 tablet (500 mg) before bedtime. Do all this for 10 days. 20 tablet 08/28/2024 09/07/2024 Active fluconazole 150 mg oral tablet (2 sources) Azole Antifungal Start: 03-21-20 24 take 1 tablet by mouth once fluconazole (Diflucan) 150 MG tablet Indications: Acute UTI 1 PO once, may repeat in 72 if needed 2 tablet 1 03/21/2024 Active folic acid 0.8 mg oral tablet (4 sources) take 0.8 mg by mouth in the morning folic acid (Folvite) 800 MCG tablet Take 0.8 mg by mouth in the morning. Active furosemide 40 mg oral tablet (4 sources) Loop Diuretic Start: 03-06-20 24 take 1 tablet by mouth twice daily furosemide (Lasix) 40 MG tablet Indications: Edema, unspecified type TAKE 1 TABLET BY MOUTH TWICE DAILY 180 tablet 3 03/06/2024 Active Start: 03-14-2023 take 1 tablet by matilde th in the morning furosemide (Lasix) 40 MG tablet Take 40 mg by mouth in the morning and 40 mg before bedtime. 0 03/14/2023 Active magnesium oxide 500 mg oral capsule (4 sources) take 1 capsule by mo uth in the morning Magnesium 500 MG capsule Take 1 capsule by mouth in the morning. Active Multiple Vitamins-Minerals (multivitamin with minerals) tablet (4 sources) take 1 tablet by matilde th in the morning Multiple Vitamins-Minerals (multivitamin with minerals) tablet Take 1 tablet by mouth in the morning. Active take 1 tablet by mouth in the mo rning Multiple Vitamins-Minerals (multivitamin with minerals) tablet Take 1 tablet by mouth in the morning. 0 Active potassium chloride 10 meq extended release oral tablet (4 sources) Start: 03-06-2024 take 1 tablet by mouth once daily potassium chloride CR (Klor-Con) 10 MEQ ER tablet Indications: Edema, unspecified type TAKE 1 TABLET BY MOUTH DAILY 90 tablet 3 03/06/2024 Active take 1 tablet by mouth in the mo rning potassium chloride CR (Klor-Con) 10 MEQ ER tablet Take 10 mEq by mouth in the morning. 0 Active pravastatin sodium 40 mg oral tablet (4 sources) HMG-CoA Reductase Inhibitor Start: 06-09-2024 take 1 tablet by mouth at bedtime pravastatin (Pravachol) 40 MG tablet Indications: Menopausal symptom TAKE 1 TABLET BY MOUTH AT BEDTIME 90 tablet 1 06/09/2024 Active Start: 09-11-2023 take 1 tablet by matilde th at bedtime pravastatin (Pravachol) 40 MG tablet Indications: Menopausal symptom TAKE 1 TABLET BY MOUTH AT BEDTIME 90 tablet 1 09/11/2023 Active take 1 tablet by matilde th at bedtime pravastatin (Pravachol) 40 MG tablet Take 40 mg by mouth at bedtime. 0 Active predniSONE 50 mg oral tablet (2 sources) Start: 08-28-2024 End: 09-03-2024 take 1 tablet by mouth once daily predniSONE (Deltasone) 50 MG tablet Indications: Acute non-recurrent pansinusitis Take 1 tablet (50 mg) by mouth Daily for 6 days 6 tablet 08/28/2024 09/03/2024 Active SUMAtriptan 100 mg oral tablet (4 sources) Serotonin-1b and Serotonin-1d Receptor Agonist Start: 02-28-2024 take 1 tablet by mouth once SUMAtriptan (Imitrex) 100 MG tablet Indications: Migraine without aura and without status migrainosus, not intractable (CMS/HCC) Take 1 tablet (100 mg) by mouth 1 (one) time if needed for migraine 9 tablet 5 02/28/2024 Active Start: 09-05-2023 take 1 tablet by mouth once NESS MAtriptan (Imitrex) 100 MG tablet Indications: Migraine without aura and without status migrainosus, not intractable (CMS/HCC) Take 1 tablet (100 mg) by mouth 1 (one) time if needed for migraine 9 tablet 5 09/05/2023 Active topiramate 100 mg oral tablet (4 sources) Start: 06-09-2024 take 1 tablet by mouth once daily topiramate (Topamax) 100 MG tablet Indications: Migraine without aura and without status migrainosus, not intractable (CMS/HCC) TAKE 1 TABLET BY MOUTH DAILY 90 tablet 3 06/09/2024 Active take 1 tablet by mouth in the mo rning topiramate (Topamax) 100 MG tablet Take 100 mg by mouth in the morning. 0 Active zinc gluconate 50 mg oral tablet (4 sources) take 1 tablet by matilde th in the morning zinc gluconate 50 MG tablet Take 50 mg by mouth in the morning. Active Completed/Discontinued Medications Medication Drug Class(es) Dates Sig (Normalized) Sig (Original) Rhubarb preparation (4 sources) Non-Standardized Food Allergenic Extract, Non-Standardized Plant Allergenic Extract take 1 tablet by mouth in the morning Rhubarb (ESTROVEN COMPLETE PO) Take 1 tablet by mouth in the morning. Active take 1 tablet by mouth in the mo rning Rhubarb (ESTROVEN COMPLETE PO) Take 1 tablet by mouth in the morning. 0 Active Problems Active Problems Problem Classification Problem Date Documented Date Episodic/Chronic Disorders of lipid metabolism (4 sources) Hyperlipidemia; Translations: [Hyperlipidemia, unspecified] Onset: 04-02-2023 04-02-2023 Chronic Esophageal disorders (4 sources) Gastroesophageal reflux disease; Translations: [Gastro-esophageal reflux disease without esophagitis] Onset: 04-02-2023 04-02-2023 Chronic Headache; including migraine (4 sources) Migraine without aura, not refractory ; Translations: [Migraine without aura, not intractable, without status migrainosus] Onset: 04-02-2023 09-05-2023 Chronic Immunizations and screening for infectious disease (1 source) Encounter for screening for human papillomavirus (HPV); Translations: [ENC SCREENING HUMAN PAPILLOMAVIRUS] Onset: 10-06-2022 Episodic Menopausal disorders (4 sources) Menopausal symptom; Translations: [Menopausal and female climacteric states] Onset: 04-02-2023 04-02-2023 Chronic Other ear and sense organ disorders (4 sources) Sensorineural hearing loss, bilateral; Translations: [Sensorineural hearing loss, bilateral] Onset: 04-04-2023 04-04-2023 Chronic Other upper respiratory disease (4 sources) Allergic rhinitis; Translations: [Allergic rhinitis, unspecified] Onset: 04-02-2023 04-02-2023 Chronic Other upper respiratory infections (6 sources) Acute sinusitis; Translations: [Acute sinusitis, unspecified] Onset: 04-02-2023 Resolved: 04-02-2023 04-02-2023 Episodic Residual codes; unclassified (1 source) Family [...] Problem Date Documented Da te Episodic/Chronic Mycoses (4 sources) Mycosis; Translations: [Candidiasis, unspecified] Onset: 04-02-2023 Resolved: 04-02-2023 04-02-2023 Episodic Other ear and sense organ disorders (4 sources) Tinnitus of left ear; Translations: [Tinnitus, left ear] Onset: 04-02-2023 04-04-2023 Episodic Other nutritional; endocrine; and metabolic disorders (4 sources) Obese class I; Translations: [Obesity, unspecified] Onset: 04-02-2023 Resolved: 04-02-2023 04-02-2023 Chronic Other screening for suspected conditions (not mental disorders or infectious disease) (12 sources) Encounter for screening for malignant neoplasm of cervix; Translations: [Encounter for screening mammogram for malignant neoplasm of breast] Onset: 08-25-2022 Episodic Other upper respiratory infections (4 sources) Sinusitis; Translations: [Chronic sinusitis, unspecified] Onset: 04-02-2023 Resolved: 03-21-2024 04-02-2023 Chronic Residual codes; unclassified (4 sources) Edema; Translations: [Edema, unspecified] Onset: 04-02-2023 04-02-2023 Episodic Urinary tract infections (2 sources) Acute urinary tract infection; Translations: [Urinary tract infection, site not specified] Onset: 03-21-2024 Resolved: 08-28-2024 08-28-2024 Episodic Results Test Name Value Interpretation Reference Range Facility PAP ACOG PANEL 2: 30 to 65on 10-10-2022 . . [facility] Comment on above: Result Comment: Perf ormed at: WB Performed By: #### [id number] #### [facility] [address] [place] [address] Dr. Alondra Pham Age Gdln ACOG Testing 30-65 [facility] Comment on above: Performed By: #### [id number] #### [facility] [address] [place] [address] Dr. Alondra Pham DIAGNOSIS: Comment Normal [facility] Comment on above: Result Comment: NEGA TIVE FOR INTRAEPITHELIAL LESION OR MALIGNANCY. Performed at: WB Performed By: #### [id number] #### [facility] [address] [place] [address] Dr. Alondra Pham HPV Aptima Negative Normal Negative [facility] Comment on above: Result Comment: This nucleic acid amplification test detects fourteen high-risk HPV types (16,18,31,33,35,39,45,51,52,56,58,59,66,68) without differentiation. Performed at: =G Performed By: #### [id number] #### [facility] [address] [place] [address] Dr. Alondra Pham HPV Genotype Reflex Comment Normal [facility] Comment on above: Result Comment: Crit eria not met, HPV Genotype not performed. Performed at: WB Performed By: #### [id number] #### [facility] [address] [place] [address] Dr. Alondra Pham Methodology: CTIM Normal [facility] Comment on above: Result Comment: The [facility] was unable to read this specimen. Therefore a manual review was performed. Performed at: WB Performed By: #### [id number] #### [facility] [address] [place] [address] Dr. Alondra Pham Note: Comment Normal [facility] Comment on above: Result Comment: The Pap smear is a screening test designed to aid in the detection of premalignant and malignant conditions of the uterine cervix. It is not a diagnostic procedure and should not be used as the sole means of detecting cervical cancer. Both false-positive and false-negative reports do occur. . Performed at: WB Performed By: #### [id number] #### [facility] [address] [place] [address] Dr. Alondra Pham Performed by: Comment Normal [facility] Comment on above: Result Comment: Usman Lim, Therapeutic Sales Specialist (ASCP) Performed at: WB Performed By: #### [id number] #### [facility] [address] [address] [address] Alondra Pham Specimen adequacy: Comment Normal [facility] Comment on above: Result Comment: Sati sfactory for evaluation. Endocervical and/or squamous metaplastic cells (endocervical component) are present. Performed at: WB Performed By: #### [id number] #### [facility] [address] [address] [address] Alondra Pham MG MAMM SCREEN 3D LUCRECIA CADon 08-25-2022 MG MAMM SCREEN 3D LUCRECIA CAD Patient: ANKIT ROMERO Exam Date: 08/25/2022 : 1965 Gender:F Ordering : DR TOMMY RENO . Admission #: [id number] Family : DR ONI WHITE . Order #: [id number] CLICK HERE TO VIEW EXAM RADIOLOGY REPORT [...] lymphoma cancer at age 73. LOCATION: [facility] BREAST COMPOSITION: Scattered areas fibroglandular density. [...] M.D. on 08/28/2022 at 09:11 Normal [facility] CBC AUTO DIFFon 06-02-2022 BASO # 0.0 103/ul Normal 0.0-0.1 [facility] Comment on above: Performed By: #### C BC #### [facility] [address] [place] [address] Dr. Alondra Pham Basophils/100 WBC (Bld) 0.4 % Normal 0.2-2.0 [facility] Comment on above: Performed By: #### C BC #### [facility] [address] [place] [address] Dr. Alondra Pham EO # 0.1 103/ul Normal 0.0-0.7 [facility] Comment on above: Performed By: #### C BC #### [facility] [address] [place] [address] Dr. Alondra Pham Eosinophils/100 WBC (Bld) 1.8 % Normal 0.9-7.0 [facility] Comment on above: Performed By: #### C BC #### [facility] [address] [place] [address] Dr. Alondra Pham Erythrocyte distribution width (RBC) [Ratio] 14.9 % Normal 11.0-15.0 [facility] Comment on above: Performed By: #### C BC #### [facility] [address] [place] [address] Dr. Alondra Pham Hematocrit (Bld) [Volume fraction] 46.1 % Normal 36.0-48.0 [facility] Comment on above: Performed By: #### C BC #### [facility] [address] [place] [address] Dr. Alondra Pham Hemoglobin (Bld) [Mass/Vol] 14.9 g/dL Normal 12.0-16.0 [facility] Comment on above: Performed By: #### C BC #### [facility] [address] [place] [address] Dr. Alondra Pham IG # 0.05 10e3/ul Critically high 0.00-0.03 [facility] Comment on above: Performed By: #### C BC #### [facility] [address] [place] [address] Dr. Alondra Pham IG % 0.7 % Critically high 0.0-0.5 [facility] Comment on above: Performed By: #### C BC #### [facility] [address] [place] [address] Dr. Alondra Pham LYMPH # 2.2 103/ul Normal 1.2-3.8 [facility] Comment on above: Performed By: #### C BC #### [facility] [address] [place] [address] Dr. Alondra Pham Lymphocytes/100 WBC (Bld) 29.2 % Normal 20.5-60.0 [facility] Comment on above: Performed By: #### C BC #### [facility] [address] [place] [address] Dr. Alondra Pham MANUAL DIFF REQ NO Normal [facility] Comment on above: Performed By: #### C BC #### [facility] [address] [place] [address] Dr. Alondra Pham MCH (RBC) [Entitic mass] 28.3 pg Normal 26.7-34.0 [facility] Comment on above: Performed By: #### C BC #### [facility] [address] [place] [address] Dr. Alondra Pham MCHC (RBC) [Mass/Vol] 32.3 g/dL Normal 29.9-35.2 [facility] Comment on above: Performed By: #### C BC #### [facility] [address] [place] [address] Dr. Alondra Pham MCV (RBC) [Entitic vol] 87.5 fL Normal 81.0-99.0 [facility] Comment on above: Performed By: #### C BC #### [facility] [address] [place] [address] Dr. Alondra Pham MONO # 0.7 103/ul Normal 0.3-0.8 [facility] Comment on above: Performed By: #### C BC #### [facility] [address] [place] [address] Dr. Alondra Pham Monocytes/100 WBC (Bld) 9.2 % Normal 1.7-12.0 [facility] Comment on above: Performed By: #### C BC #### [facility] [address] [address] [address] Alondra Pham NEUT # 4.5 103/ul Normal 1.4-6.5 [facility] Comment on above: Performed By: #### C BC #### [facility] [address] [address] [address] Alondra Pham Neutrophils/100 WBC (Bld) 58.7 % Normal 43.0-75.0 [facility] Comment on above: Performed By: #### C BC #### [facility] [address] [address] [address] Alondra Pham Platelet mean volume (Bld) [Entitic vol] 11.0 fL Normal 9.5-13.5 [facility] Comment on above: Performed By: #### C BC #### [facility] [address] [place] [address] Dr. Alondra Pham PLT 299 103/ul Normal 150-450 [facility] Comment on above: Performed By: #### C BC #### [facility] [address] [place] [address] Dr. Alondra Pham RBC 5.27 106/ul Normal 4.20-5.40 [facility] Comment on above: Performed By: #### C BC #### [facility] [address] [place] [address] Dr. Alondra Pham WBC 7.6 103/ul Normal 4.0-11.0 [facility] Comment on above: Performed By: #### C BC #### [facility] [address] [place] [address] Dr. Alondra Pham GLYCOHEMOGLOBIN A1Con 2021 ADA RECOMMENDATION SEE BELOW Normal [facility] Comment on above: Result Comment: ADA RECOMMENDED LIMIT 4.0 - 6.0 ADA THERAPEUTIC TARGET < 7.0 ACTION SUGGESTED > 7.0 Performed By: #### A 1C #### [facility] [address] [place] [address] Dr. Alondra Pham Glucose [Mass/Vol] 120 mg/dL Normal [facility] Comment on above: Performed By: #### A 1C #### [facility] [address] [address] [address] Alondra Pham HbA1c (Bld) [Mass fraction] 5.8 % Normal 4.5-6.2 [facility] Comment on above: Performed By: #### A 1C #### [facility] [address] [address] [address] Alondra Pham LIPID PROFILEon 06-02-2022 CHOL-HDL RATIO NORM SEE BELOW Normal [facility] Comment on above: Result Comment: 3.3 - 4.4 LOW RISK 4.4 - 7.1 AVERAGE RISK 7.1 - 11.0 MODERATE RISK >11.0 HIGH RISK Performed By: #### L IVER, BMP, TSH, LIPID #### [facility] [address] [address] [address] Alondra Pham Cholesterol [Mass/Vol] 231 mg/dL Critically high <=200 [facility] Comment on above: Performed By: #### L IVER, BMP, TSH, LIPID #### [facility] [address] [address] [address] Alondra Pham Cholesterol in HDL [Mass/Vol] 51 mg/dL Normal 40-60 [facility] Comment on above: Performed By: #### L IVER, BMP, TSH, LIPID #### [facility] [address] [address] [address] Alondra Pham Cholesterol in LDL [Mass/Vol] 140.8 mg/dL Normal [facility] Comment on above: Performed By: #### L IVER, BMP, TSH, LIPID #### [facility] [address] [address] [address] Alondra Pham Cholesterol.total/Ch olesterol in HDL [Mass ratio] 4.5 {ratio} Normal [facility] Comment on above: Performed By: #### L IVER, BMP, TSH, LIPID #### [facility] [address] [address] [address] Alondra Pham HDL NORMAL > or = 60 mg/dl - LO W CARDIOVASCULAR RISK <40 mg/dl - HIGH CARDIOVASCULAR RISK Normal [facility] Comment on above: Performed By: #### L IVER, BMP, TSH, LIPID #### [facility] [address] [address] [address] Alondra Pham LDL CALC NORMAL SEE BELOW Normal [facility] Comment on above: Result Comment: <100 mg/dl OPTIMAL 100 - 129 mg/dl NEAR OR ABOVE OPTIMAL 130 - 159 mg/dl BORDERLINE HIGH 160 - 189 mg/dl HIGH >190 mg/dl VERY HIGH Performed By: #### L IVER, BMP, TSH, LIPID #### [facility] [address] [address] [address] Alondra Pham Triglyceride [Mass/Vol] 196 mg/dL Critically high <=150 [facility] Comment on above: Performed By: #### L IVER, BMP, TSH, LIPID #### [facility] [address] [address] [address] Alondra Pham VLDL CALC 39.2 mg/dL Normal [facility] Comment on above: Performed By: #### L IVER, BMP, TSH, LIPID #### [facility] [address] [address] [address] Alondra Pham LIVER PROFILEon 06-02-2022 Albumin [Mass/Vol] 3.7 g/dL Normal 3.4-5.0 [facility] Comment on above: Performed By: #### L IVER, BMP, TSH, LIPID #### [facility] [address] [address] [address] Alondra Pham Albumin/Globulin [Mass ratio] 0.9 {ratio} Normal [facility] Comment on above: Performed By: #### L IVER, BMP, TSH, LIPID #### [facility] [address] [address] [address] Alondra Pham ALP [Catalytic activity/Vol] 95 U/L Normal 46-116 [facility] Comment on above: Performed By: #### L IVER, BMP, TSH, LIPID #### [facility] [address] [address] [address] Alondra Pham ALT [Catalytic activity/Vol] 23 U/L Normal 14-59 [facility] Comment on above: Performed By: #### L IVER, BMP, TSH, LIPID #### [facility] [address] [address] [address] Alondra Pham AST [Catalytic activity/Vol] 16 U/L Normal 15-37 [facility] Comment on above: Performed By: #### L IVER, BMP, TSH, LIPID #### [facility] [address] [address] [address] Alondra Pham BILI, CONJUGATED 0.1 mg/dL Normal 0.0-0.2 [facility] Comment on above: Performed By: #### L IVER, BMP, TSH, LIPID #### [facility] [address] [place] [address] Dr. Alondra Pham Bilirubin [Mass/Vol] 0.6 mg/dL Normal 0.2-1.0 [facility] Comment on above: Performed By: #### L IVER, BMP, TSH, LIPID #### [facility] [address] [address] [address] Alondra Pham Globulin (S) [Mass/Vol] 3.9 g/dL Normal [facility] Comment on above: Performed By: #### L IVER, BMP, TSH, LIPID #### [facility] [address] [place] [address] Dr. Alondra Pham Protein [Mass/Vol] 7.6 g/dL Normal 6.4-8.2 [facility] Comment on above: Performed By: #### L IVER, BMP, TSH, LIPID #### [facility] [address] [place] [address] Dr. Alondra Pham PROF CHEM 8 (BAS METB)on Anion gap [Moles/Vol] 12.3 mmol/L Normal [facility] Comment on above: Performed By: #### L IVER, BMP, TSH, LIPID #### [facility] [address] [place] [address] Dr. Alondra Pham Calcium [Mass/Vol] 9.2 mg/dL Normal 8.5-10.1 [facility] Comment on above: Performed By: #### L IVER, BMP, TSH, LIPID #### [facility] [address] [address] [address] Alondra Pham Chloride [Moles/Vol] 101 mmol/L Normal 98-107 [facility] Comment on above: Performed By: #### L IVER, BMP, TSH, LIPID #### [facility] [address] [place] [address] Dr. Alondra Pham CO2 [Moles/Vol] 28.4 mmol/L Normal 21.0-32.0 [facility] Comment on above: Performed By: #### L IVER, BMP, TSH, LIPID #### [facility] [address] [place] [address] Dr. Alondra Pham Creatinine [Mass/Vol] 1.10 mg/dL Critically high 0.55-1.02 [facility] Comment on above: Performed By: #### L IVER, BMP, TSH, LIPID #### [facility] [address] [place] [address] Dr. Alondra Pham EGFR-AF NICARAGUAN >60 Normal >=60 [facility] Comment on above: Performed By: #### L IVER, BMP, TSH, LIPID #### [facility] [address] [place] [address] Dr. Alondra Pham EGFR-NON AF NICARAGUAN 51 mL/min/1.73m2 Critically low >=60 [facility] Comment on above: Performed By: #### L IVER, BMP, TSH, LIPID #### [facility] [address] [place] [address] Dr. Alondra Pham Glucose [Mass/Vol] 109 mg/dL Critically high 74-106 [facility] Comment on above: Performed By: #### L IVER, BMP, TSH, LIPID #### [facility] [address] [place] [address] Dr. Alondra Pham Potassium [Moles/Vol] 3.7 mmol/L Normal 3.5-5.1 [facility] Comment on above: Performed By: #### L IVER, BMP, TSH, LIPID #### [facility] [address] [place] [address] Dr. Alondra Pham Sodium [Moles/Vol] 138 mmol/L Normal 136-145 [facility] Comment on above: Performed By: #### L IVER, BMP, TSH, LIPID #### [facility] [address] [address] [address] Alondra Pham Urea nitrogen [Mass/Vol] 33.0 mg/dL Critically high 7.0-18.0 [facility] Comment on above: Performed By: #### L IVER, BMP, TSH, LIPID #### [facility] [address] [address] [address] Alondra Pham Urea nitrogen/Creatinine [Mass ratio] 30.0 mg/mg Normal [facility] Comment on above: Performed By: #### L IVER, BMP, TSH, LIPID #### [facility] [address] [address] [address] Alondra Pham TSHon 06-02-2022 TSH 1.888 uIU/mL Normal 0.358-3.740 [facility] Comment on above: Performed By: #### L IVER, BMP, TSH, LIPID #### [facility] [address] [address] [address] Alondra Pham XR ankle LT min 3V*on 2021 XR ankle LT min 3V* [facility] [place] [address] XRay Report Signed Patient: Ankit Romero MR#: [id number] : 1965 Acct:[id number] Age/Sex: 56 / F ADM Date: 05/10/22 Loc: XDCLY Room: Type: [facility] Attending Dr: Shaikh Lowell HARRISON Copies [...] Anam Yanes M.D.05/10/2022 4:33 PM Dictation Location: [place] [address] Transcribed By: [facility] 05/10/22 1633 Dictated By: Anam Yanes II, MD 05/10/22 163 Signed By: 05/10/22 1633 [facility] Vital Signs Date Time Vital Sign Value Performing Clinician Faci lity 08-28-2024 15:28-0500 Body height 167.6 cm Tommy Reno MD Work Phone: [facility] 08-28-2024 15:28-0500 Body mass index (BMI) [Ratio] 33.09 kg/m2 Tommy Reno MD Work Phone: [facility] 08-28-2024 15:28-0500 Body temperature 97.81 [degF] Tommy Reno MD Work Phone: [facility] 08-28-2024 15:28-0500 Body weight 92.99 kg Tommy Reno MD Work Phone: [facility] 08-28-2024 15:28-0500 Diastolic blood pressure 74 mm[Hg] Tommy Reno MD Work Phone: [facility] 08-28-2024 15:28-0500 Heart rate 108 /min Tommy Reno MD Work Phone: [facility] 08-28-2024 15:28-0500 Respiratory rate 22 /min Tommy Reno MD Work Phone: [facility] 08-28-2024 15:28-0500 SaO2% (BldA) [Mass fraction] 96 % Tommy Reno MD Work Phone: [facility] 08-28-2024 15:28-0500 Systolic blood pressure 130 mm[Hg] Tommy Reno MD Work Phone: [facility] Encounters Encounter Date Encounter Type Care Provider Facility Start: 08-28-2024 End: 08-28-2024 Office outpatient visit 15 minutes Tommy Reno MD Work Phone: [facility] Comment on above: Acute non-recurrent pansinusitis (Primary Dx) Start: 08-28-2024 End: 08-28-2024 ambulatory TOMMY RENO Not Available Start: 03-21-2024 End: 03-21-2024 ambulatory TOMMY RENO Not Available Start: 10-31-2023 End: 10-31-2023 ambulatory ONI CHRISTOPHER Not Available Start: 10-09-2023 End: 10-09-2023 ambulatory ONI CHRISTOPHER Not Available Start: 09-17-2023 Chart abstracting Oni Christopher DO Work Phone: [facility] Start: 09-07-2023 Telephone encounter Anita pineda MD Work Phone: [facility] Start: 09-05-2023 Patient encounter procedure Anita Dee MD Work Phone: [facility] Start: 09-05-2023 End: 09-05-2023 ambulatory TOMMY RENO Not Available Start: 10-03-2022 End: 10-03-[address] ONI WHITE . Facility:[facility] Start: 08-25-2022 End: 08-26-[address] TOMMY RENO Facility:[facility] Start: 06-07-2022 Encounter for genera l adult medical examination without abnormal findings DR TOMMY RENO [facility] Start: 06-02-2022 End: 06-03-[address] TOMMY RENO Facility:[facility] Start: 06-02-2022 End: 06-03-2022 Encounter for general adult medical examination without abnormal findings DR TOMMY RENO Facility:[facility] Start: 05-10-2022 End: 05-10-2022 ambulatory [facility] Work Phone: Start: 05-10-2022 End: 05-10-2022 Patient encounter procedure MD Shaikh Etienne Work Phone: [facility] Procedures Date Procedure Procedure Detail Performing Clinician Start: 09-14-2023 Mammography Oni arizmendi DO Work Phone: Start: 05-10-2022 X-ray of left ankle MD Shaikh Etienne Work Phone: Plan of Treatment Date Care Activity Detail Author Start: 08-02-2025 Screening for malign ant neoplasm of colon [facility] Start: 10-14-2024 End: 10-14-2024 Patient encounter procedure 10/14/2024 10:00 AM EDT Office Visit [facility] [address] [place] [id number] Oni White, DO [address] [place], [place] [id number] [facility] Start: 09-23-2024 End: 09-23-2024 Patient encounter procedure 09/23/2024 10:45 AM EST Office Visit [facility] [address] [place] [phone] Tommy Reno MD [address] [place] [phone] [facility] Start: 09-14-2024 Screening for malign ant neoplasm of breast Mammogram [facility] Start: 04-06-2024 Influenza vaccination Influenza Vacc ine (#1) [facility] Start: 03-03-2024 End: 03-03-2024 Patient encounter procedure 03/03/2024 10:30 AM EDT Office Visit [facility] [address] [place] [address] Tommy Reno MD [address] [place] [phone] [facility] Start: 10-09-2023 End: 10-09-2023 Patient encounter procedure 10/09/2023 11:00 AM EST Office Visit [facility] [address] [address] Oni White, DO [address] [place] [address] [facility] Start: 2005 Screening for malign ant neoplasm of breast Mammogram [facility] Start: 1995 Screening for malign ant neoplasm of cervix [facility] Start: 1986 Screening for malign ant neoplasm of cervix Pap Smear [facility] Start: 1965 Screening for malign ant neoplasm of colon [facility] Immunizations Immunization Date Immunization Notes Care Provider Fa [facility] 05-24-2023 influenza virus vacc ine, unspecified formulation Tommy Reno MD Work Phone: [facility] 08-29-2022 Moderna SARS-CoV-2 50mcg/0.5mL Booster Anita Dee MD Work Phone: [facility] 08-04-2019 zoster vaccine recombinant Anita Dee MD Work Phone: [facility] 06-03-2019 zoster vaccine recombinant Anita Dee MD Work Phone: [facility] Payers Date Payer Category Payer Private Health Insurance [facility] [id number] 2022 Unknown [employer] [id number] 2022-Present [address] [address] [place] [address] [id number] 2022 Self-pay [id number] 1965 Unknown [id number] .[id number] 1965 Unknown [id number] .2.593 1965 Unknown [id number] [id number] .2.593 1965 Unknown [id number] [id number] .2.1259 1965 Unknown [id number] [id number] .2.1259 1965 Unknown [id number] [id number] .2.1259 1965 Unknown [id number] [id number] .2.1259 1965 Unknown [id number] [id number] .2.1259 1959 Unknown [id number] 1959 Unknown [id number] Unknown [id number] .2.531 [facility]er's [facility] [id number] Social History Date Type Detail Facility Tobacco smoking stat [facility] Unknown if ever smoked [facility] Work Phone: Start: 1965 Sex Assigned At Female F [facility] Start: 04-02-2023 [facility] Start: 04-02-2023 Tobacco use and exposure Smoke less tobacco non-user [facility] Start: 09-05-2023 End: 08-28-2024 Alcohol intake Lifetime non-drinker (finding) [facility] [...] At Not on file [facility] History of Present illness Narrative 08-28-2024 Tommy Reno MD - 08/28/2024 3:57 PM Suyapa Reno MD - 08/28/2024 3:15 PM EST Note Date & Type Note Facility 08-28-2024 History of Presen t illness Narrative Associated Problem(s): Acute non-recurrent pansinusitis Take antibiotics BID for 10 days. Use prednisone for inflammation. Use sudafed or other decongestants as needed. Use Robitussin or Robitussin-DM for cough. Can use afrin for congestion but no longer than 3 days. Can use Mucinex to bring up phlegm. Use Motrin or Tylenol as needed for fever, aches, or pains. Increase fluid intake and rest. Should improve over next 5-7 days and if no better or worse call for re-evaluation. Images from the original note were not included. Subjective Patient ID: Ankit Romero is a 59 y.o. female who presents for Sinusitis and Earache. C/o cough, congestion, and rhinorrhea x several weeks but worse over past 5 days. Afebrile. Severe fatigue and no energy. Mild cough dry and nonproductive. Denies chest tightness or SOB. PENNY and sinus pressure in forehead and cheeks along with postnasal drip. Ears plugged and popping. Sore throat and pain to swallow. Mild nausea. Brother recently sick. Using OTC medication and mild relief. No improvement in symptoms since onset. Review of Systems Respiratory: Negative for cough, shortness of breath and wheezing. Cardiovascular: Negative for chest pain and palpitations. Gastrointestinal: Negative for abdominal pain, diarrhea, nausea and vomiting. Genitourinary: Negative for dysuria. Objective Physical Exam Constitutional: General: She is not in acute distress. Appearance: Normal appearance. HENT: Head: Normocephalic. Right Ear: Tympanic membrane normal. Left Ear: Tympanic membrane normal. Eyes: Extraocular Movements: Extraocular movements intact. Pupils: Pupils are equal, round, and reactive to light. Cardiovascular: Rate and Rhythm: Normal rate and regular rhythm. Heart sounds: No murmur heard. No friction rub. No gallop. Pulmonary: Effort: Pulmonary effort is normal. Breath sounds: Normal breath sounds. No wheezing, rhonchi or rales. Abdominal: General: Bowel sounds are normal. There is no distension. Palpations: Abdomen is soft. Tenderness: There is no abdominal tenderness. There is no guarding or rebound. Musculoskeletal: Cervical back: Neck supple. Right lower leg: No edema. Left lower leg: No edema. Neurological: Mental Status: She is alert. Assessment/Plan Problem List Items Addressed This Visit Acute non-recurrent pansinusitis - Primary Take antibiotics BID for 10 days. Use prednisone for inflammation. Use sudafed or other decongestants as needed. Use Robitussin or Robitussin-DM for cough. Can use afrin for congestion but no longer than 3 days. Can use Mucinex to bring up phlegm. Use Motrin or Tylenol as needed for fever, aches, or pains. Increase fluid intake and rest. Should improve over next 5-7 days and if no better or worse call for re-evaluation. Relevant Medications ciprofloxacin (Cipro) 500 MG tablet predniSONE (Deltasone) 50 MG tablet documented in this encounter [facility] Telephone [...] Left messages on 08/24, 08/27, 08/28, 08/29, 08/31/,09/04 with no response. Spoke to pt today [...] Left messages on 08/24, 08/27, 08/28, 08/29, 08/31/,09/04 with no response. Spoke to pt today and states she does not wish to reschedule. Pt stated she looked at MRI results from the Nov MRI and said she does not need an appt as the MRI looked good to her. Pt has history of cancelling appts (4 since 04/23/2023). [facility] Evaluation note Note Date & Type Note Facility Evaluation note No assessment information [facility] Work Phone: Evaluation note Note Date & Type Note Facility Evaluation note Diagnosis Annual physical exam- Primary Routine general medical examination at a health care facility Breast cancer screening by mammogram Migraine without aura and without status migrainosus, not intractable (CMS/HCC) Upper respiratory tract infection, unspecified type Migraine without aura and without status migrainosus, not intractable (CMS/HCC)- Primary Generalized edema Edema Acute UTI Urinary tract infection, site not specified Seasonal allergic rhinitis due to pollen Acute non-recurrent pansinusitis- Primary documented in this encounter [facility] Advance Directives No Advanced Directives Records Found Advance Directive Response Recorded Date/ Time Advance Directives No November 19, 019 1:28pm Summary Purpose Family History No Family History Records FoundNo Family History Records FoundNo Family History Records Found Additional Source Comments Care Teams (unrecognized sec tion and content) Team Status: Inactive Member Role Status Dates Shaikh Lowell MD Attending Provider Active Relay Adjuster Relationship Specialty Start Date End Date Tommy Reno MD [address] [place] [phone] PCP - General Family Medicine 08/28/23 Relay Adjuster Relationship Specialty Start Date End Date Tommy Reno MD [address] [place] [phone] PCP - General Family Medicine 08/28/23 Relay Adjuster Relationship Specialty Start Date End Date Tommy Reno MD [address] [place] [address] PCP - General Family Medicine 08/28/23 Goals (unrecognized section and content) Goals may be documented in a n alternate section INFORMATION SOURCE (unrecogn ized section and content) DATE CREATED AUTHOR 10/12/2022 [facility] pital DATE CREATED AUTHOR AUTHOR'S ORGANIZ ATION 11/23/2022 [facility] DATE CREATED AUTHOR AUTHOR'S ORGANIZ ATION 08/30/2024 [facility] EPIC Reason for Visit (unrecogniz ed section and content) Reason Comments Sinusitis Earache FOR RECORDS PERTAINING TO PATIENTS WHO ARE [...] BE BASED ON THE PRIMARY CLINICAL RECORDS. [employer] provides no warranty or guarantee of the accuracy or completeness of information in this document.
--- NOTE | 2024-09-15 10:17 | MM_ITS ---
Patient Name: ANKIT SULLIVAN MR#: [id number] : 1965 Exam Date: 09/15/2024 Ordering Doctor: DR ONI VILLAGRAN . RADIOLOGY REPORT PROCEDURE: MM TOMOSYNTHESIS SCREENING BI COMPARISON: MM TOMOSYNTHESIS SCREENING BI, 09/14/2023. MG MAMM SCREEN 3D LUCRECIA CAD, 08/25/2022. INDICATIONS: Screening Calculator Name NCI Breast Cancer Risk Assessment Tool 5 Year Breast Cancer Risk 2.90% Lifetime Breast Cancer Risk 15.10% Personal Breast Cancer No Personal Ovarian Cancer No Treatments None Family Cancers Mother with breast cancer at age 50; Father with prostate cancer at age 50; Father with lymphoma cancer at age 73. LOCATION: [facility] BREAST COMPOSITION: There are scattered areas of fibroglandular density. FINDINGS: DIAGNOSTIC CATEGORY 2--BENIGN FINDING. NO CHANGE FROM COMPARISON. Scattered benign-appearing nodules are present. Scattered benign-appearing calcifications are present. Scattered benign-appearing lymph nodes are present. RIGHT BREAST: No significant suspicious finding. LEFT BREAST: No significant suspicious finding. RECOMMENDATIONS: ROUTINE MAMMOGRAM AND CLINICAL EVALUATION IN 12 MONTHS. PLEASE NOTE: A NORMAL MAMMOGRAM DOES NOT EXCLUDE THE POSSIBILITY OF BREAST CANCER. A CLINICALLY SUSPICIOUS PALPABLE LUMP SHOULD BE BIOPSIED. Dictated by: Benjamín Redd MD on 09/15/2024 at 13:34 Approved by: Benjamín Redd MD on 09/15/2024 at 13:40
== END 2024-09-15 10:14 | disposition home or self-care (01) ==
PROVIDERS: PCP Family Medicine; Visit Provider Obstetrics & Gynecology
DX: Z12.31 Encounter for screening mammogram for malignant neoplasm of breast (principal); Z80.3 Family history of malignant neoplasm of breast; Z80.42 Family history of malignant neoplasm of prostate; Z80.7 Family history of other malignant neoplasms of lymphoid, hematopoietic and related tissues
CPT/HCPCS: 77063; 77067

== ENCOUNTER 2024-10-21 15:01 | Outpatient (REF) | payer OTHER, SELFPAY ==
[2024-10-23 14:09] LABS: Age Gdln ACOG Testing Note (.); HPV Aptima Negative (Negative); IGP, Aptima HPV, rfx 16/18,45 Note (.)
== END 2024-10-21 15:02 | disposition home or self-care (01) ==
LOC: LAB 15:01
PROVIDERS: PCP Family Medicine; Visit Provider Obstetrics & Gynecology
DX: Z01.419 Encounter for gynecological examination (general) (routine) without abnormal findings (principal)
CPT/HCPCS: 87624; 88175

== ENCOUNTER 2024-11-12 10:53 | Observation (INO) | payer OTHER, SELFPAY ==
[2024-11-12] VITALS (15 sets, daily range): BP systolic 97–135; BP diastolic 60–90; PULSE 70–109; TEMP 36.2–36.8; O2SAT 93–97; BMI 32.3; BMI 33.1
--- NOTE | 2024-11-12 | OP_ITS ---
OPERATION DATE: 11/12/2024 PREOPERATIVE DIAGNOSIS: 1. Left ureteral calculi x3 with left hydronephrosis. 2. Intractable left flank pain. POSTOPERATIVE DIAGNOSIS: 1. Left ureteral calculi x3 with left hydronephrosis. 2. Intractable left flank pain. PROCEDURE: 1. Cystoscopy. 2. Left retrograde pyelogram. 3. Left ureteroscopy. 4. Laser lithotripsy three left ureteral calculi with basket extraction of multiple calculi fragments. 5. Left double J stent placement under fluoroscopic guidance. SURGEON: Duke Velazquez M.D. COMPLICATIONS: None. ANESTHESIA: Dr. Ruth with a general and 2% Xylocaine jelly per urethra. INDICATIONS: Ms. Romero is a 59-year-old female, with no prior history of kidney stones, who presents with three left ureteral calculi, located in the upper portion of the lower aspect of the ureter, overlying the proximal sacral portion. Due to the multiple stones and degree of hydronephrosis, which is severe, recommendation made for operative intervention, with the inherent risk of bleeding, infection, stent placement, need for additional procedural intervention, heart and lung problems under anesthesia, among others. She wishes to proceed. She did receive preoperative antibiotics and does have sequential compression devices in place and functional to bilateral lower extremities throughout the case. PROCEDURE: She was then brought back to the operating room and a time out was performed. All were in agreement with the operative plan. She was identified appropriately. After the successful induction of general anesthesia, she was placed in a modified dorsolithotomy position and prepped in the usual fashion with Betadine solution. She was draped appropriately and 2% Xylocaine jelly was placed per urethra. Well lubricated, 22-Qatari cystourethroscope with 30 degree lens was then passed into the bladder without difficulty. She has somewhat orange urine. This may be due to some of her medications being taken. The bladder was filled and emptied several times. No tumors. No stones. No diverticula. Under fluoroscopic imaging, the stones were easily visualized and are quite dense. These seem to number in three. These are located in the upper aspect of the lower ureter at the proximal sacral segment. Retrograde pyelogram was subsequently performed utilizing a 6-Qatari open ended ureteral catheter. This revealed a normal lower ureter and then three stones lodged in the area described. Later in the case, retrograde pyelogram revealed significant dilatation of the ureter and significant hydronephrosis. I was able to negotiate a 0.035 Guidewire up beyond the stones and into the kidney. Cystoscope removed and a semi-rigid ureteroscope was then placed. This was passed up to the level of the stones and subsequently beyond, pushing them beyond the narrowed segment. These were much too large to simply engage with a basket. Throughout a tedious case, all three stones were ablated with holmium laser at about 10 regan of power. The difficulty was that each stone was pushed more proximally with every laser hit, making this a tedious case. Finally, I was able to break the stones into small enough pieces that I could retrieve them and pull them beyond the narrowed segment, down and then out of the patient, which were deposited and all subsequently sent to Pathology for evaluation. After removal of the final piece, final ureteroscopy was performed. No other stone fragments were identified. Completion of the retrograde pyelogram was performed at this point. I decided to place an indwelling stent. With the safety wire left in place, the ureteroscope was removed. The cystoscope was backloaded over the wire, and a 4.9 Qatari Dornier double J stent was then was passed into the left kidney. Wire removed and there was good curl within the kidney and urinary bladder. Bladder emptied, scope removed and the procedure was terminated. She tolerates it well. She is transferred to the PACU in satisfactory condition, stable vital signs. Plan will be for transfer to the floor for postoperative management. Eventual plan from the urologic standpoint will be for cystoscopy and a left stent removal under local anesthesia within the next 2-3 weeks, giving time for the manipulative trauma to the ureter to resolve. She also had significant hydronephrosis and, hopefully, this will resolve nicely as well. Discussed all this with the patient?s daughter post-op, and she was in agreement with the plan. ZULEMA
--- NOTE | 2024-11-12 11:11 | ED_ITS ---
HPI HPI - General Adult General Chief complaint: Abdominal Pain Stated complaint: ABDOMINAL PAIN Time Seen by Provider: 11/12/24 10:54 History of Present Illness HPI narrative: Patient presents to the ED complaining of left lower quadrant abdominal pain. Patient states it started about a week ago and its just been progressively getting worse. Patient denies any history of diverticulitis or kidney stone in the past. She has nausea no vomiting. Denies any fevers or blood in the stool. No UTI symptoms. She denies any flank or back pain. She said last night it was getting difficult to sleep because of the pain. She has not had a colonoscopy in the past. Patient states the pain has been coming and going in waves but seems a little bit more consistent and more severe since last night. No other complaints at this time Related Data Home Medications ?Medication ?Instructions ?Recorded ?Confirmed furosemide 40 mg tablet 40 mg PO Q12H 11/12/24 11/12/24 potassium chloride 10 mEq 10 meq PO DAILY 11/12/24 11/12/24 tablet,extended release pravastatin 40 mg tablet 40 mg PO DAILY 11/12/24 11/12/24 topiramate 100 mg tablet 100 mg PO DAILY 11/12/24 11/12/24 Allergies Allergy/AdvReac Type Severity Reaction Status Date / Time iodine Allergy Rash Verified 11/12/24 10:58 mercury (elemental) Allergy Rash Verified 11/12/24 10:58 Sulfa (Sulfonamide Allergy Rash Verified 11/12/24 10:58 Antibiotics) Opioid HPI Opioid Management Most Recent Opioid Data: No Data to Display Review of Systems ROS Status of ROS 10 or more systems reviewed and unremark able except as noted in history and below PFSH PFSH Social History Little interest or pleasure in doing things: not at all Feeling down, depressed, or hopeless: not at all Exam Narrative Exam Narrative: Time Seen: [] Vital Signs: [Per nurse's notes.] General: [Alert] Skin: [Warm, dry, no rash.] Head: [Normocephalic, atraumatic.] Neck: [Supple, trachea midline.] Eye: [Pupils are equal, round and reactive to light, extraocular movements are intact, normal conjunctiva.] Ears, nose, mouth and throat: oral mucosa moist. Cardiovascular: [Regular rate and rhythm, no murmur.] Respiratory: [Lungs are clear to auscultation, respirations are non-labored, breath sounds are equal.] Chest wall: [No tenderness, no deformity.] Gastrointestinal: [Soft, left lower quadrant abdominal pain mild guarding non distended, normal bowel sounds.] MSK: 5 out of 5 muscle strength x 4 extremities no calf pain or edema Psychiatric: [Cooperative, appropriate mood & affect.] Neurological: [Alert and oriented to person, place, time, and situation, no focal neurological deficit observed.] Constitutional Vital Signs, click to edit/add: Last Vital Signs Temp 98.2 F 11/12/24 10:58 Pulse 109 H 11/12/24 10:58 Resp 20 11/12/24 10:58 BP 124/80 11/12/24 10:58 Pulse Ox 95 11/12/24 10:58 O2 Del Method Room Air 11/12/24 10:58 Course Vital Signs Vital signs: Vital Signs Temperature 98.2 F 11/12/24 10:58 Pulse Rate 109 H 11/12/24 10:58 Respiratory Rate 20 11/12/24 10:58 Blood Pressure 124/80 11/12/24 10:58 Pulse Oximetry 95 11/12/24 10:58 Oxygen Delivery Method Room Air 11/12/24 10:58 Temperature 98.2 F 11/12/24 10:58 Pulse Rate 109 H 11/12/24 10:58 Respiratory Rate 20 11/12/24 10:58 Blood Pressure 124/80 11/12/24 10:58 Pulse Oximetry 95 11/12/24 10:58 Oxygen Delivery Method Room Air 11/12/24 10:58 Medical Decision Making [facility] Narrative Medical decision making narrative: Patient CT scan showed a 6.5 mm distal left ureteral stone as well as 2 other stones in the left distal ureter. She does have severe hydronephrosis. She does have a slight bump in her creatinine as well. Her pain is better after some Toradol but it is still present. To Dr. Velazquez who is on-call for urology today and he said to admit her to the hospitalist and he would do a stent versus laser or what ever he deems necessary. Patient was informed that she is going to be admitted to the hospital for further care of the kidney stones. I spoke to Dr. Landrum who will admit the patient. Patient is comfortable with care plan. Differential Diagnosis Differential Diagnosis: Kidney stone, hydronephrosis, diverticulitis, UTI Lab Data Lab results reviewed: Yes I reviewed the patient's lab results Labs: Lab Results 11/12/24 11/12/24 Range/Units 11:23 11:35 WBC 7.7 (4.0-11.0) 10^3/uL RBC 5.24 (4.20-5.40) 10^6/uL Hgb 14.9 (12.0-16.0) g/dL Hct 44.3 (36.0-48.0) % MCV 84.5 (81.0-99.0) fL MCH 28.4 (26.7-34.0) pg MCHC 33.6 (29.9-35.2) g/dL RDW 14.1 (11.0-15.0) % Plt Count 294 (150-450) 10^3/uL MPV 9.4 L (9.5-13.5) fL Neut % (Auto) 58.1 (43.0-75.0) % Lymph % (Auto) 28.7 (20.5-60.0) % Craig % (Auto) 11.0 (1.7-12.0) % Eos % (Auto) 1.3 (0.9-7.0) % Baso % (Auto) 0.8 (0.2-2.0) % Neut # (Auto) 4.5 (1.4-6.5) 10^3/uL Lymph # (Auto) 2.2 (1.2-3.8) 10^3/uL Craig # (Auto) 0.9 H (0.3-0.8) 10^3/uL Eos # (Auto) 0.1 (0.0-0.7) 10^3/uL Baso # (Auto) 0.1 (0.0-0.1) 10^3/uL Abs Immat Gran (auto) 0.01 (0.00-0.03) 10^3/uL Imm/Tot Granulo (auto) 0.1 (0.0-0.5) % Sodium 139 (136-145) mmol/L Potassium 3.5 (3.5-5.1) mmol/L Chloride 103 (98-107) mmol/L Carbon Dioxide 24.5 (21.0-32.0) mmol/L Anion Gap 15.0 BUN 22.0 H (7.0-18.0) mg/dL Creatinine 1.67 H (0.55-1.02) mg/dL Est GFR ( Amer) 38 L (>=60 mL/min/1.73m^2) Est GFR (Non-Af Amer) 31 L (>=60 mL/min/1.73m^2) BUN/Creatinine Ratio 13.2 Glucose 112 H (74-106) mg/dL Calcium 9.2 (8.5-10.1) mg/dL Total Bilirubin 0.6 (0.2-1.0) mg/dL AST 21 (15-37) U/L ALT 14 (14-59) U/L Alkaline Phosphatase 108 (46-116) U/L Total Protein 7.7 (6.4-8.2) g/dL Albumin 3.7 (3.4-5.0) g/dL Globulin 4.0 g/dL Albumin/Globulin Ratio 0.9 Urine Color Dk. orange (YELLOW) Urine Clarity Clear (CLEAR) Urine pH Color interference A (5.0-9.0) Ur Specific [place] 1.020 (1.005-1.025) Urine Protein Color interference A (NEG/TRACE) mg/dL Urine Glucose (UA) Color interference A (NEGATIVE) mg/dL Urine Ketones Color interference A (NEGATIVE) mg/dL Urine Occult Blood Color interference A (NEGATIVE) Urine Nitrite Color interference A (NEGATIVE) Urine Bilirubin Color interference A (NEGATIVE) Urine Urobilinogen Color interference A (0.2-1.0) EU/dL Ur Leukocyte Esterase Color interference A (NEGATIVE) Urine RBC 0-2 (0-2) #/HPF Urine WBC 2-5 A (NONE SEEN) #/HPF Ur Squamous Epith Cells Rare (NONE/RARE) #/LPF Urine Crystals None seen (None Seen) #/HPF Urine Bacteria Trace A (NONE SEEN) #/HPF Urine Casts None seen (NONE SEEN) #/LPF Urine Mucus None seen (NONE SEEN) Ur Culture Indicated? No Imaging Data CT scan - abdomen: Attestation: I have reviewed the pertinent imaging results. Discharge Plan Discharge Chief Complaint: Abdominal Pain Clinical Impression: Calculus of kidney, DERICK (acute kidney injury) Patient Disposition: Admitted as Observation Time of Disposition Decision: 12:38 Condition: Fair Prescriptions / Home Meds: No Action furosemide 40 mg tablet 40 mg PO Q12H potassium chloride 10 mEq tablet extended release 10 meq PO DAILY pravastatin 40 mg tablet 40 mg PO DAILY topiramate 100 mg tablet 100 mg PO DAILY Print Language: Setswana Referrals: Tommy Hayes MD [Primary Care Provider] - 1 week
[2024-11-12] MEDS: 0.9 % SODIUM CHLORIDE 1,000 ML 999 ML IV (11:29)
--- OUTSIDE RECORDS SUMMARY | 2024-11-12 11:29 | XMS_ITS | CCD ---
Author Organization [facility] Care Team Providers Care Document Restorer Name Role Phone MD Elvira Etienne Attending Provider CHRISTOPHER ., DR BUNN Admitting Unavailable CHRISTOPHER ., DR BUNN Attending Unavailable NADERER, DR TOMMY Greene Primary Care Unavailable CHRISTOPHER ., DR BUNN Consulting Unavailable NADERER, DR [...] TOMMY Greene Consulting Unavailable Fawcesar, Attending Unavailable DiegowShaikh guerrero Admitting Unavailable NON STAFF Primary Care Unavailable Tommy Reno MD Primary Care Provider [phone] TOMMY RENO Attending Unavailable NADERER, TOMMY Attending Unavailable CHRISTOPHER, ONI Attending Unavailable CHRISTOPHER, ONI Attending Unavailable NADERER, TOMMY Attending Unavailable Allergies Allergy Classification Reported Allergen(s) Allergy Type Date of Onset Reaction(s) Facility (11 sources) cefdinir Drug Allergy 4 Other [facility] (11 sources) Iodine Drug Allergy 3 Hives, Itching, Rash, Swelling [facility] Work Phone: (11 sources) levoFLOXacin Drug Allergy 4 Other [facility] Work Phone: (11 sources) Mercury Drug Allergy 3 Hives, Itching [facility] (11 sources) Sulfonamides (Antibiotic) Drug Allergy 3 Hives, Itching, Rash, Swelling, Unknown [facility] (11 sources) Trimethoprim Drug Allergy 3 Unknown [facility] [...] 09/05/2023 Active biotin 10 mg oral capsule (11 sources) take 1 capsule by mouth in the morning biotin 10 MG capsule Take 1 capsule by mouth in the morning. Active Calcium Citrate / Vitamin D (11 sources) take 1 tablet by mouth once in the morning Calcium Citrate-Vitamin D (CALCIUM CITRATE +D PO) Take 1 tablet by mouth in the morning. Active take 1 tablet by matilde th once in the morning Calcium Citrate-Vitamin D (CALCIUM CITRA TE +D PO) Take 1 tablet by mouth in the morning. 0 Active celecoxib 200 mg oral capsule (11 sources) Nonsteroidal Anti-inflammatory Drug Start: 06-09-2024 take [...] Active cetirizine hydrochloride 10 mg oral tablet (11 sources) Histamine-1 Receptor Antagonist take 1 tablet [...] 09/07/2024 Active fluconazole 150 mg oral tablet (11 sources) Azole Antifungal Start: 03-21-20 End: 09-23-19 25 take 1 tablet by mouth once fluconazole (Diflucan) 150 MG tablet Indications: Acute UTI 1 PO once, may repeat in 72 if needed 2 tablet 1 09/23/2024 Active folic acid 0.8 mg oral tablet (11 sources) take 0.8 mg by mouth in the morning folic acid (Folvite) 800 MCG tablet Take 0.8 mg by mouth in the morning. Active furosemide 40 mg oral tablet (11 sources) Loop Diuretic Start: 03-06-20 24 take [...] Active magnesium oxide 500 mg oral capsule (11 sources) take 1 capsule by mo uth in the morning Magnesium 500 MG capsule Take 1 capsule by mouth in the morning. Active Multiple Vitamins-Minerals (multivitamin with minerals) tablet (11 sources) take 1 tablet by matilde th in the morning Multiple Vitamins-Minerals (multivitamin with minerals) tablet Take 1 tablet by mouth in the morning. Active take 1 tablet by mouth in the mo rning Multiple Vitamins-Minerals (multivitamin with minerals) tablet Take 1 tablet by mouth in the morning. 0 Active potassium chloride 10 meq extended release oral tablet (11 sources) Start: 03-06-2024 take 1 tablet by [...] Active pravastatin sodium 40 mg oral tablet (11 sources) HMG-CoA Reductase Inhibitor Start: 06-09-2024 take [...] by mouth at bedtime. 0 Active predniSONE 10 mg oral tablet (7 sources) Start: 09-23-2024 take 6 tablets by mouth once daily, then take 4 tablets by mouth once daily, then take 2 tablets by mouth once daily, then take 1 tablet by mouth once daily predniSONE (Deltasone) 10 MG tablet Indications: Chronic rhinosinusitis 6 PO daily x 3 days, 4 PO daily x 3 days, 2 PO daily x 3 days, 1 PO daily x 3 days 39 tablet 09/23/2024 Active Start: 08-28-2024 End: 09-03-2024 take 1 tablet by mouth once daily predniSONE (Deltasone) 50 MG tablet Indications: Acute non-recurrent pansinusitis Take 1 tablet (50 mg) by mouth Daily for 6 days 6 tablet 08/28/2024 09/03/2024 Active SUMAtriptan 100 mg oral tablet (11 sources) Serotonin-1b and Serotonin-1d Receptor Agonist Start: 09-18-2024 take 1 tablet by mouth once as needed SUMAtriptan (Imitrex) 100 MG tablet Indications: Migraine without aura and without status migrainosus, not intractable (CMS/HCC) TAKE 1 TABLET(100 MG) BY MOUTH 1 TIME NEEDED FOR MIGRAINE 9 tablet 5 09/18/2024 Active Start: 02-28-2024 take 1 tablet by mouth once NESS [...] 09/05/2023 Active topiramate 100 mg oral tablet (11 sources) Start: 06-09-2024 take 1 tablet by [...] Active zinc gluconate 50 mg oral tablet (11 sources) take 1 tablet by matilde th in the morning zinc gluconate 50 MG tablet Take 50 mg by mouth in the morning. Active Completed/Discontinued Medications Medication Drug Class(es) Dates Sig (Normalized) Sig (Original) Rhubarb preparation (11 sources) Non-Standardized Food Allergenic Extract, Non-Standardized Plant Allergenic Extract take 1 tablet by mouth in the morning Rhubarb (ESTROVEN COMPLETE PO) Take 1 tablet by mouth in the morning. Active take 1 tablet by mouth in the mo rning Rhubarb (ESTROVEN COMPLETE PO) Take 1 tablet by mouth in the morning. 0 Active Problems Active Problems Problem Classification Problem Date Documented Date Episodic/Chronic Diabetes mellitus without complication (5 sources) Prediabetes; Translations: [Prediabetes] Onset: 09-23-2024 09-23-2024 Episodic Disorders of lipid metabolism (11 sources) Hyperlipidemia; Translations: [Hyperlipidemia, unspecified] Onset: 04-02-2023 04-02-2023 Chronic Esophageal disorders (11 sources) Gastroesophageal reflux disease; Translations: [Gastro-esophageal reflux disease without esophagitis] Onset: 04-02-2023 04-02-2023 Chronic Headache; including migraine (11 sources) Migraine without aura, not refractory ; Translations: [Migraine without aura, not intractable, without status migrainosus] Onset: 04-02-2023 09-05-2023 Chronic Immunizations and screening for infectious disease (1 source) Encounter for screening for human papillomavirus (HPV); Translations: [ENC SCREENING HUMAN PAPILLOMAVIRUS] Onset: 10-06-2022 Episodic Menopausal disorders (11 sources) Menopausal symptom; Translations: [Menopausal and female climacteric states] Onset: 04-02-2023 04-02-2023 Chronic Other ear and sense organ disorders (11 sources) Sensorineural hearing loss, bilateral; Translations: [Sensorineural hearing loss, bilateral] Onset: 04-04-2023 04-04-2023 Chronic Other nutritional; endocrine; and metabolic disorders (5 sources) Obesity caused by energy imbalance; Translations: [Class 1 obesity due to excess calories with serious comorbidity and body mass index (BMI) of 33.0 to 33.9 in adult] Onset: 04-02-2023 09-23-2024 Chronic Other screening for suspected conditions (not mental disorders or infectious disease) (20 sources) Encounter for screening for malignant neoplasm of cervix; Translations: [Encounter for screening mammogram for malignant neoplasm of breast] Onset: 08-25-2022 Episodic Other upper respiratory disease (6 sources) Allergic rhinitis; Translations: [Allergic rhinitis, unspecified] Onset: 04-02-2023 04-02-2023 Chronic Other upper respiratory infections (18 sources) Sinusitis; Translations: [Chronic sinusitis, unspecified] Onset: 04-02-2023 Resolved: 03-21-2024 04-02-2023 Chronic Residual codes; unclassified (1 source) [...] Problem Date Documented Da te Episodic/Chronic Mycoses (11 sources) Mycosis; Translations: [Candidiasis, unspecified] Onset: 04-02-2023 Resolved: 04-02-2023 04-02-2023 Episodic Other ear and sense organ disorders (11 sources) Tinnitus of left ear; Translations: [Tinnitus, left ear] Onset: 04-02-2023 04-04-2023 Episodic Other nutritional; endocrine; and metabolic disorders (6 sources) Obese class I; Translations: [Obesity, unspecified] Onset: 04-02-2023 Resolved: 04-02-2023 04-02-2023 Chronic Other upper respiratory infections (13 sources) Acute sinusitis; Translations: [Acute sinusitis, unspecified] Onset: 04-02-2023 Resolved: 09-23-2024 04-02-2023 Episodic Residual codes; unclassified (11 sources) Edema; Translations: [Edema, unspecified] Onset: 04-02-2023 04-02-2023 Episodic Urinary tract infections (11 sources) Acute urinary tract infection; Translations: [Urinary tract infection, site not specified] Onset: 03-21-2024 Resolved: 08-28-2024 08-28-2024 Episodic Results Test Name Value Interpretation Reference Range Facility IGP,APTIMA HPV,AGE GDLNon AGE GDLN ACOG TESTING Note . [facility] Comment on above: TESTS RESULT FLAG UN ITS REF RANGE LAB Clinician Provided Cytology Information Source.............Cervix;Endocervix No. of containers..01 ThinPrep Vial Age Algo ACOG Farzaneh... 30-65 01 FLAG LEGEND: L-Low Normal,H-High Normal,LL-Alert Low,HH-Alert High <-Panic Low,>-Panic High,A-Abnormal,AA-Critical Abnormal Performed at: 01 =G [address] [address] Nichole Kyle MD, HPV APTIMA Negative Negative [facility] Comment on above: This nucleic acid am plification test detects fourteen high- risk HPV types (16,18,31,33,35,39,45,51,52,56,58,59,66,68) without differentiation. Performed at: =G - [facility] [id number] Impersonator Character: Nichole Kyle MD, Phone: [phone] Performed at: WB - [facility], [place] [id number] Impersonator Character: Nichole Kyle MD, Phone: [phone] IGP, APTIMA HPV, RFX 16/18,45 Note . [facility] Comment on above: TESTS RESULT FLAG U NITS REF RANGE LAB DIAGNOSIS: 02 NEGATIVE FOR INTRAEPITHELIAL LESION OR MALIGNANCY. CELLULAR CHANGES ASSOCIATED WITH INFLAMMATION ARE PRESENT. Specimen adequacy: 02 Satisfactory for evaluation. Endocervical and/or squamous metaplastic cells (endocervical component) are present. Performed by: Olga Childs, Automatic Data Processing Planner (ASCP) . 02 Note: Note 02 The Pap smear is a screening test designed to aid in the detection of premalignant and malignant conditions of the uterine cervix. It is not a diagnostic procedure and should not be used as the sole means of detecting cervical cancer. Both false-positive and false-negative reports do occur. Test Methodology: Note 02 This liquid based ThinPrep(R) pap test was screened with the use of an image guided system. HPV Genotype Reflex Note 02 Criteria not met, HPV Genotype not performed. FLAG LEGEND: L-Low Normal,H-High Normal,LL-Alert Low,HH-Alert High <-Panic Low,>-Panic High,A-Abnormal,AA-Critical Abnormal Performed at: [address] [address] Nichole Kyle MD, BRUSH-SPATULA CERVIX ENDOCERVIX [facility] MM TOMOSYNTHESIS SCREENING B Ion 09-15-2024 [place] [address] Mammography Report Signed Patient: ANKIT ROMERO MR#: [id number] : 1965 Acct:[id number] Age/Sex: 59 / F ADM Date: 09/15/24 Loc: MAMMO Attending Dr: Oni White D.O. Ordering Physician: Oni White D.O. Results: Date of Service: 09/15/24 Follow Up: Procedure(s): MM tomosynthesis screening BI Accession Number(s): [id number] cc: Oni White D.O.; Tommy Reno M.D. Patient Name: ANKIT ROMERO MR#: [id number] : 1965 Exam Date: 09/15/2024 Ordering Doctor: DR ONI WHITE . RADIOLOGY REPORT PROCEDURE: MM TOMOSYNTHESIS SCREENING BI COMPARISON: MM TOMOSYNTHESIS SCREENING BI, 09/14/2023. MG MAMM SCREEN 3D LUCRECIA CAD, 08/25/2022. INDICATIONS: Screening Calculator Name NCI Breast Cancer Risk Assessment Tool 5 Year Breast Cancer Risk 2.90% Lifetime Breast Cancer Risk 15.10% Personal Breast Cancer No Personal Ovarian Cancer No Treatments None Family Cancers Mother with breast cancer at age 50; Father with prostate cancer at age 50; Father with lymphoma cancer at age 73. LOCATION: [facility] BREAST COMPOSITION: There are scattered areas of fibroglandular density. FINDINGS: DIAGNOSTIC CATEGORY 2--BENIGN FINDING. NO CHANGE FROM COMPARISON. Scattered benign-appearing nodules are present. Scattered benign-appearing calcifications are present. Scattered benign-appearing lymph nodes are present. RIGHT BREAST: No significant suspicious finding. LEFT BREAST: No significant suspicious finding. RECOMMENDATIONS: ROUTINE MAMMOGRAM AND CLINICAL EVALUATION IN 12 MONTHS. PLEASE NOTE: A NORMAL MAMMOGRAM DOES NOT EXCLUDE THE POSSIBILITY OF BREAST CANCER. A CLINICALLY SUSPICIOUS PALPABLE LUMP SHOULD BE BIOPSIED. Dictated by: Benjamín Redd MD on 09/15/2024 at 13:34 Approved by: Benjamín Redd MD on 09/15/2024 at 13:40 Dictated By: Benjamín Redd M.D. Signed By: 09/15/24 1342 DD/ 1340 TD/TT: Automatic Chief: [facility] Radiology, Radiologist, - 09/15/2024 [address] [place] [id number] Mammography Report Signed Patient: ANKIT ROMERO MR#: [id number] : 1965 Acct:[id number] Age/Sex: 59 / F ADM Date: 09/15/24 Loc: MAMMO Attending Dr: Oni White D.O. Ordering Physician: Oni White D.O. Results: Date of Service: 09/15/24 Follow Up: Procedure(s): MM tomosynthesis screening BI Accession Number(s): [id number] cc: Oni White D.O.; Tommy Reno M.D. Patient Name: ANKIT ROMERO MR#: [id number] : 1965 Exam Date: 09/15/2024 Ordering Doctor: DR ONI WHITE . RADIOLOGY REPORT PROCEDURE: MM TOMOSYNTHESIS SCREENING BI COMPARISON: MM TOMOSYNTHESIS SCREENING BI, 09/14/2023. MG MAMM SCREEN 3D LUCRECIA CAD, 08/25/2022. INDICATIONS: Screening Calculator Name NCI Breast Cancer Risk Assessment Tool 5 Year Breast Cancer Risk 2.90% Lifetime Breast Cancer Risk 15.10% Personal Breast Cancer No Personal Ovarian Cancer No Treatments None Family Cancers Mother with breast cancer at age 50; Father with prostate cancer at age 50; Father with lymphoma cancer at age 73. LOCATION: [facility] BREAST COMPOSITION: There are scattered areas of fibroglandular density. FINDINGS: DIAGNOSTIC CATEGORY 2--BENIGN FINDING. NO CHANGE FROM COMPARISON. Scattered benign-appearing nodules are present. Scattered benign-appearing calcifications are present. Scattered benign-appearing lymph nodes are present. RIGHT BREAST: No significant suspicious finding. LEFT BREAST: No significant suspicious finding. RECOMMENDATIONS: ROUTINE MAMMOGRAM AND CLINICAL EVALUATION IN 12 MONTHS. PLEASE NOTE: A NORMAL MAMMOGRAM DOES NOT EXCLUDE THE POSSIBILITY OF BREAST CANCER. A CLINICALLY SUSPICIOUS PALPABLE LUMP SHOULD BE BIOPSIED. Dictated by: Benjamín Redd MD on 09/15/2024 at 13:34 Approved by: Benjamín Redd MD on 09/15/2024 at 13:40 Dictated By: Benjamín Redd M.D. Signed By: 09/15/24 1342 DD/ 1340 TD/TT: Automatic Chief: [facility] Radiology Study observation (narrative) [facility] MM TOMOSYNTHESIS SCREENING B IOrdered By: Radiologist Radiology on 09-15-2024 [facility] [employer] Work Phone: PAP ACOG PANEL 2: 30 to 65on 10-10-2022 . . Normal [facility] Comment on above: Result Comment: Perf ormed at: WB Performed By: #### [id number] #### [facility] [address] [place] [address] Dr. Alondra Pham Age Gdln ACOG Testing 30-65 Normal [facility] Comment on above: Performed By: #### [id number] #### [facility] [address] [address] [address] Alondra Pham DIAGNOSIS: Comment Normal [facility] Comment on above: Result Comment: NEGA TIVE FOR INTRAEPITHELIAL LESION OR MALIGNANCY. Performed at: WB Performed By: #### [id number] #### [facility] [address] [address] [address] Alondra Pham HPV Aptima Negative Normal Negative [facility] Comment on above: Result Comment: This nucleic acid amplification test detects fourteen high-risk HPV types (16,18,31,33,35,39,45,51,52,56,58,59,66,68) without differentiation. Performed at: =G Performed By: #### [id number] #### [facility] [address] [place] [address] Dr. Alondra Pham HPV Genotype Reflex Comment Normal [facility] Comment on above: Result Comment: Crit eria not met, HPV Genotype not performed. Performed at: WB Performed By: #### [id number] #### [facility] [address] [place] [address] Dr. Alondra Pham Methodology: CTIM Normal [facility] Comment on above: Result Comment: The Thin Prep(R) Transitions Manager Rn was unable to read this specimen. Therefore a manual review was performed. Performed at: WB Performed By: #### [id number] #### [facility] [address] [place] [address] Dr. Alondra Pham Note: Comment Normal [facility] Comment on above: Result Comment: The Pap smear is a screening test designed to aid in the detection of premalignant and malignant conditions of the uterine cervix. It is not a diagnostic procedure and should not be used as the sole means of detecting cervical cancer. Both false-positive and false-negative reports do occur. . Performed at: WB Performed By: #### [id number] #### [facility] [address] [place] [address] Dr. Alondra Pham Performed by: Comment Normal [facility] Comment on above: Result Comment: Usman Lim Automatic Data Processing Planner (ASCP) Performed at: WB Performed By: #### [id number] #### [facility] [address] [place] [address] Dr. Alondra Pham Specimen adequacy: Comment Normal [facility] Comment on above: Result Comment: Sati sfactory for evaluation. Endocervical and/or squamous metaplastic cells (endocervical component) are present. Performed at: WB Performed By: #### [id number] #### [facility] [address] [place] [address] Dr. Alondra Pham MG MAMM SCREEN 3D LUCRECIA CADon 08-25-2022 MG MAMM SCREEN 3D LUCRECIA CAD Patient: ANKIT ROMERO Exam Date: 08/25/2022 : 1965 Gender:F Ordering : DR TOMMY RENO . Admission #: [id number] Family : DR GARYPatrice WHITE . Order #: [id number] CLICK HERE TO VIEW EXAM RADIOLOGY REPORT [...] lymphoma cancer at age 73. LOCATION: [facility] BREAST COMPOSITION: Scattered areas fibroglandular density. [...] M.D. on 08/28/2022 at 09:11 Normal [facility] CBC AUTO DIFFon 06-02-2022 BASO # 0.0 103/ul Normal 0.0-0.1 [facility] Comment on above: Performed By: #### C BC #### [facility] [address] [address] [address] Alondra Pham Basophils/100 WBC (Bld) 0.4 % Normal 0.2-2.0 [facility] Comment on above: Performed By: #### C BC #### [facility] [address] [address] [address] Alondra Pham EO # 0.1 103/ul Normal 0.0-0.7 [facility] Comment on above: Performed By: #### C BC #### [facility] [address] [address] [address] Alondra Pham Eosinophils/100 WBC (Bld) 1.8 % Normal 0.9-7.0 [facility] Comment on above: Performed By: #### C BC #### [facility] [address] [place] [address] Dr. Alondra Pham Erythrocyte distribution width (RBC) [Ratio] 14.9 % Normal 11.0-15.0 [facility] Comment on above: Performed By: #### C BC #### [facility] [address] [place] [address] Dr. Alondra Pham Hematocrit (Bld) [Volume fraction] 46.1 % Normal 36.0-48.0 [facility] Comment on above: Performed By: #### C BC #### [facility] [address] [place] [address] Dr. Alondra Pham Hemoglobin (Bld) [Mass/Vol] 14.9 g/dL Normal 12.0-16.0 [facility] Comment on above: Performed By: #### C BC #### [facility] [address] [place] [address] Dr. Alondra Pham IG # 0.05 10e3/ul Critically high 0.00-0.03 [facility] Comment on above: Performed By: #### C BC #### [facility] [address] [place] [address] Dr. Alondra Pham IG % 0.7 % Critically high 0.0-0.5 [facility] Comment on above: Performed By: #### C BC #### [facility] [address] [place] [address] Dr. Alondra Pham LYMPH # 2.2 103/ul Normal 1.2-3.8 [facility] Comment on above: Performed By: #### C BC #### [facility] [address] [place] [address] Dr. Alondra Pham Lymphocytes/100 WBC (Bld) 29.2 % Normal 20.5-60.0 [facility] Comment on above: Performed By: #### C BC #### [facility] [address] [place] [address] Dr. Alondra Pham MANUAL DIFF REQ NO Normal [facility] Comment on above: Performed By: #### C BC #### [facility] [address] [place] [address] Dr. Alondra Pham MCH (RBC) [Entitic mass] 28.3 pg Normal 26.7-34.0 [facility] Comment on above: Performed By: #### C BC #### [facility] [address] [place] [address] Dr. Alondra Pham MCHC (RBC) [Mass/Vol] 32.3 g/dL Normal 29.9-35.2 [facility] Comment on above: Performed By: #### C BC #### [facility] [address] [place] [address] Dr. Alondra Pham MCV (RBC) [Entitic vol] 87.5 fL Normal 81.0-99.0 [facility] Comment on above: Performed By: #### C BC #### [facility] [address] [place] [address] Dr. Alondra Pham MONO # 0.7 103/ul Normal 0.3-0.8 [facility] Comment on above: Performed By: #### C BC #### [facility] [address] [place] [address] Dr. Alondra Pham Monocytes/100 WBC (Bld) 9.2 % Normal 1.7-12.0 [facility] Comment on above: Performed By: #### C BC #### [facility] [address] [place] [address] Dr. Alondra Pham NEUT # 4.5 103/ul Normal 1.4-6.5 [facility] Comment on above: Performed By: #### C BC #### [facility] [address] [place] [address] Dr. Alondra Pham Neutrophils/100 WBC (Bld) 58.7 % Normal 43.0-75.0 [facility] Comment on above: Performed By: #### C BC #### [facility] [address] [place] [address] Dr. Alondra Pham Platelet mean volume (Bld) [Entitic vol] 11.0 fL Normal 9.5-13.5 [facility] Comment on above: Performed By: #### C BC #### [facility] [address] [place] [address] Dr. Alondra Pham PLT 299 103/ul Normal 150-450 [facility] Comment on above: Performed By: #### C BC #### [facility] [address] [place] [address] Dr. Alondra Pham RBC 5.27 106/ul Normal 4.20-5.40 [facility] Comment on above: Performed By: #### C BC #### [facility] [address] [place] [address] Dr. Alondra Pham WBC 7.6 103/ul Normal 4.0-11.0 [facility] Comment on above: Performed By: #### C BC #### [facility] [address] [place] [address] Dr. Alondra Pham GLYCOHEMOGLOBIN A1Con 2021 ADA RECOMMENDATION SEE BELOW Normal [facility] Comment on above: Result Comment: ADA RECOMMENDED LIMIT 4.0 - 6.0 ADA THERAPEUTIC TARGET < 7.0 ACTION SUGGESTED > 7.0 Performed By: #### A 1C #### [facility] [address] [place] [address] Dr. Alondra Pham Glucose [Mass/Vol] 120 mg/dL Normal [facility] Comment on above: Performed By: #### A 1C #### [facility] [address] [place] [address] Dr. Alondra Pham HbA1c (Bld) [Mass fraction] 5.8 % Normal 4.5-6.2 [facility] Comment on above: Performed By: #### A 1C #### [facility] [address] [place] [address] Dr. Alondra Pham LIPID PROFILEon 06-02-2022 CHOL-HDL RATIO NORM SEE BELOW Normal [facility] [facility] Comment on above: Result Comment: 3.3 - 4.4 LOW RISK 4.4 - 7.1 AVERAGE RISK 7.1 - 11.0 MODERATE RISK >11.0 HIGH RISK Performed By: #### L IVER, BMP, TSH, LIPID #### [facility] [address] [address] [address] Alondra Pham Cholesterol [Mass/Vol] 231 mg/dL Critically high <=200 [facility] Comment on above: Performed By: #### L IVER, BMP, TSH, LIPID #### [facility] [address] [address] [address] Alondra Pham Cholesterol in HDL [Mass/Vol] 51 mg/dL Normal 40-60 [facility] Comment on above: Performed By: #### L IVER, BMP, TSH, LIPID #### [facility] [address] [address] [address] Alondra Pham Cholesterol in LDL [Mass/Vol] 140.8 mg/dL Normal [facility] Comment on above: Performed By: #### L IVER, BMP, TSH, LIPID #### [facility] [address] [address] [address] Alondra Pham Cholesterol.total/Ch olesterol in HDL [Mass ratio] 4.5 {ratio} Normal [facility] Comment on above: Performed By: #### L IVER, BMP, TSH, LIPID #### [facility] [address] [address] [address] Alondra Pham HDL NORMAL > or = 60 mg/dl - LO W CARDIOVASCULAR RISK <40 mg/dl - HIGH CARDIOVASCULAR RISK Normal [facility] Comment on above: Performed By: #### L IVER, BMP, TSH, LIPID #### [facility] [address] [address] [address] Alondra Pham LDL CALC NORMAL SEE BELOW Normal [facility] Comment on above: Result Comment: <100 mg/dl OPTIMAL 100 - 129 mg/dl NEAR OR ABOVE OPTIMAL 130 - 159 mg/dl BORDERLINE HIGH 160 - 189 mg/dl HIGH >190 mg/dl VERY HIGH Performed By: #### L IVER, BMP, TSH, LIPID #### [facility] [address] [address] [address] Alondra Pham Triglyceride [Mass/Vol] 196 mg/dL Critically high <=150 [facility] Comment on above: Performed By: #### L IVER, BMP, TSH, LIPID #### [facility] [address] [address] [address] Alondra Pham VLDL CALC 39.2 mg/dL Normal [facility] Comment on above: Performed By: #### L IVER, BMP, TSH, LIPID #### [facility] [address] [address] [address] Alondra Pham LIVER PROFILEon 06-02-2022 Albumin [Mass/Vol] 3.7 g/dL Normal 3.4-5.0 [facility] Comment on above: Performed By: #### L IVER, BMP, TSH, LIPID #### [facility] [address] [place] [address] Dr. Alondra Pham Albumin/Globulin [Mass ratio] 0.9 {ratio} Normal [facility] Comment on above: Performed By: #### L IVER, BMP, TSH, LIPID #### [facility] [address] [address] [address] Alondra Pham ALP [Catalytic activity/Vol] 95 U/L Normal 46-116 [facility] Comment on above: Performed By: #### L IVER, BMP, TSH, LIPID #### [facility] [address] [place] [address] Dr. Alondra Pham ALT [Catalytic activity/Vol] 23 U/L Normal 14-59 [facility] Comment on above: Performed By: #### L IVER, BMP, TSH, LIPID #### [facility] [address] [address] [address] Alondra Pham AST [Catalytic activity/Vol] 16 U/L Normal 15-37 [facility] Comment on above: Performed By: #### L IVER, BMP, TSH, LIPID #### [facility] [address] [place] [address] Dr. Alondra Pham BILI, CONJUGATED 0.1 mg/dL Normal 0.0-0.2 [facility] Comment on above: Performed By: #### L IVER, BMP, TSH, LIPID #### [facility] [address] [address] [address] Alondra Pham Bilirubin [Mass/Vol] 0.6 mg/dL Normal 0.2-1.0 [facility] Comment on above: Performed By: #### L IVER, BMP, TSH, LIPID #### [facility] [address] [place] [address] Dr. Alondra Pham Globulin (S) [Mass/Vol] 3.9 g/dL Normal [facility] Comment on above: Performed By: #### L IVER, BMP, TSH, LIPID #### [facility] [address] [place] [address] Dr. Alondra Pham Protein [Mass/Vol] 7.6 g/dL Normal 6.4-8.2 [facility] Comment on above: Performed By: #### L IVER, BMP, TSH, LIPID #### [facility] [address] [place] [address] Dr. Alondra Pham PROF CHEM 8 (BAS METB)on Anion gap [Moles/Vol] 12.3 mmol/L Normal [facility] Comment on above: Performed By: #### L IVER, BMP, TSH, LIPID #### [facility] [address] [place] [address] Dr. Alondra Pham Calcium [Mass/Vol] 9.2 mg/dL Normal 8.5-10.1 [facility] Comment on above: Performed By: #### L IVER, BMP, TSH, LIPID #### [facility] [address] [place] [address] Dr. Alondra Pham Chloride [Moles/Vol] 101 mmol/L Normal 98-107 [facility] Comment on above: Performed By: #### L IVER, BMP, TSH, LIPID #### [facility] [address] [place] [address] Dr. Alondra Pham CO2 [Moles/Vol] 28.4 mmol/L Normal 21.0-32.0 [facility] Comment on above: Performed By: #### L IVER, BMP, TSH, LIPID #### [facility] [address] [place] [address] Dr. Alondra Pham Creatinine [Mass/Vol] 1.10 mg/dL Critically high 0.55-1.02 [facility] Comment on above: Performed By: #### L IVER, BMP, TSH, LIPID #### [facility] [address] [address] [address] Alondra Pham EGFR-AF CZECH >60 Normal >=60 [facility] Comment on above: Performed By: #### L IVER, BMP, TSH, LIPID #### [facility] [address] [address] [address] Alondra Pham EGFR-NON AF CZECH 51 mL/min/1.73m2 Critically low >=60 [facility] Comment on above: Performed By: #### L IVER, BMP, TSH, LIPID #### [facility] [address] [address] [address] Alondra Pham Glucose [Mass/Vol] 109 mg/dL Critically high 74-106 [facility] Comment on above: Performed By: #### L IVER, BMP, TSH, LIPID #### [facility] [address] [address] [address] Alondra Pham Potassium [Moles/Vol] 3.7 mmol/L Normal 3.5-5.1 [facility] Comment on above: Performed By: #### L IVER, BMP, TSH, LIPID #### [facility] [address] [address] [address] Alondra Pham Sodium [Moles/Vol] 138 mmol/L Normal 136-145 [facility] Comment on above: Performed By: #### L IVER, BMP, TSH, LIPID #### [facility] [address] [address] [address] Alondra Pham Urea nitrogen [Mass/Vol] 33.0 mg/dL Critically high 7.0-18.0 [facility] Comment on above: Performed By: #### L IVER, BMP, TSH, LIPID #### [facility] [address] [address] [address] Alondra Pham Urea nitrogen/Creatinine [Mass ratio] 30.0 mg/mg Normal [facility] Comment on above: Performed By: #### L IVER, BMP, TSH, LIPID #### [facility] [address] [address] [address] Alondra Pham TSHon 06-02-2022 TSH 1.888 uIU/mL Normal 0.358-3.740 [facility] Comment on above: Performed By: #### L IVER, BMP, TSH, LIPID #### [facility] [id number] Alondra Pham XR ankle LT min 3V*on 2021 XR ankle LT min 3V* [facility] [place] [address] [place] [address] XRay Report Signed Patient: Ankit Romero MR#: [id number] : 1965 Acct:[id number] Age/Sex: 56 / F ADM Date: 05/10/22 Loc: [facility] Room: Type: [facility] Attending Dr: Shaikh Lowell HARRISON Copies to: [...] Anam Yanes M.D.05/10/2022 4:33 PM Dictation Location: [place] [address] Transcribed By: [facility] 05/10/22 163 Dictated By: Anam Yanes II, MD 05/10/221630 Signed By: 05/10/22 163 Normal [facility] Vital Signs Date Time Vital Sign Value Performing Clinician Faci lity 10-21-2024 09:26-0400 Body mass index (BMI) [Ratio] 33.73 kg/m2 Oni Christopher DO Work Phone: [facility] 10-21-2024 09:26-0400 Body weight 94.8 kg Oni Christopher DO Work Phone: [facility] 10-21-2024 09:26-0400 Diastolic blood pressure 82 mm[Hg] Oni Christopher DO Work Phone: [facility] 10-21-2024 09:26-0400 Systolic blood pressure 124 mm[Hg] Oni Christopher DO Work Phone: [facility] 09-23-2024 10:59-0500 Body height 167.6 cm Tommy Reno MD Work Phone: [facility] 09-23-2024 10:59-0500 Body mass index (BMI) [Ratio] 33.57 kg/m2 Tommy Reno MD Work Phone: [facility] 09-23-2024 10:59-0500 Body temperature 97.5 [degF] Tommy Reno MD Work Phone: [facility] 09-23-2024 10:59-0500 Body weight 94.35 kg Tommy Reno MD Work Phone: [facility] 09-23-2024 10:59-0500 Diastolic blood pressure 60 mm[Hg] Tommy Reno MD Work Phone: [facility] 09-23-2024 10:59-0500 Heart rate 101 /min Tommy Reno MD Work Phone: [facility] 09-23-2024 10:59-0500 Respiratory rate 20 /min Tommy Reno MD Work Phone: [facility] 09-23-2024 10:59-0500 SaO2% (BldA) [Mass fraction] 94 % Tommy Reno MD Work Phone: [facility] 09-23-2024 10:59-0500 Systolic blood pressure 130 mm[Hg] Tommy eRno MD Work Phone: [facility] 08-28-2024 15:28-0500 Body height 167.6 cm Tommy Reno MD Work Phone: [facility] 08-28-2024 15:28-0500 Body mass index (BMI) [Ratio] 33.09 kg/m2 Tommy Reno MD Work Phone: [facility] 08-28-2024 15:28-0500 Body temperature 97.81 [degF] Tommy Reno MD Work Phone: [facility] 08-28-2024 15:28-0500 Body weight 92.99 kg Tommy Reno MD Work Phone: [facility] 08-28-2024 15:28-0500 Diastolic blood pressure 74 mm[Hg] Tommy Reno MD Work Phone: [facility] 08-28-2024 15:28-0500 Heart rate 108 /min Tommy Reno MD Work Phone: [facility] 08-28-2024 15:28-0500 Respiratory rate 22 /min Tommy Reno MD Work Phone: [facility] 08-28-2024 15:28-0500 SaO2% (BldA) [Mass fraction] 96 % Tommy Reno MD Work Phone: [facility] 08-28-2024 15:28-0500 Systolic blood pressure 130 mm[Hg] Tommy Reno MD Work Phone: [facility] Encounters Encounter Date Encounter Type Care Provider Facility Start: 10-21-2024 End: 10-23-2024 Clinisync Result Encounter Generic External Data Provider [facility] Unsolicited Start: 10-21-2024 End: 10-23-2024 Clinisync Result Encounter Generic External Data Provider [facility] Unsolicited Start: 10-21-2024 End: 10-21-2024 Patient encounter procedure Oni Christopher DO Work Phone: [facility] Start: 10-21-2024 End: 10-21-2024 Periodic preventive med est patient 40-64yrs Oni Christopher DO Work Phone: [facility] Comment on above: Well woman exam with routine gynecological exam; Encounter for screening mammogram for malignant neoplasm of breast Start: 10-21-2024 End: 10-21-2024 ambulatory ONI CHRISTOPHER Not Available Start: 09-23-2024 End: 09-23-2024 Bamboo flowsheet Tommy Reno MD Work Phone: [facility] Start: 09-23-2024 End: 09-23-2024 Bamboo flowsheet Tommy Reno MD Work Phone: [facility] Start: 09-23-2024 End: 09-23-2024 ambulatory TOMMY RENO Not Available Start: 09-23-2024 End: 09-23-2024 Patient encounter procedure Tommy Reno MD Work Phone: [facility] Work Phone: Start: 09-23-2024 End: 09-23-2024 Periodic preventive med est patient 40-64yrs Tommy Reno MD Work Phone: [facility] Comment on above: Annual physical exam (Primary Dx); Chronic rhinosinusitis; Acute UTI Start: 09-15-2024 End: 09-15-2024 Clinisync Result Encounter Generic External Data Provider [facility] Unsolicited Start: 09-15-2024 End: 09-15-2024 Clinisync Result Encounter Generic External Data Provider [facility] Unsolicited Start: 08-28-2024 End: 08-28-2024 Office outpatient visit 15 minutes Tommy Reno MD Work Phone: [facility] Comment on above: Acute non-recurrent pansinusitis (Primary Dx) Start: 08-28-2024 End: 08-28-2024 ambulatory TOMMY RENO Not Available Start: 03-21-2024 End: 03-21-2024 ambulatory TOMMY RENO Not Available Start: 10-31-2023 End: 10-31-2023 ambulatory ONI WHITE Not Available Start: 09-17-2023 Chart abstracting Oni Christopher DO Work Phone: [facility] Start: 09-07-2023 Telephone encounter Anita pineda MD Work Phone: [facility] Start: 09-05-2023 Patient encounter procedure Anita Dee MD Work Phone: [facility] Start: 10-03-2022 End: 10-03-[address] ONI WHITE . Facility:[facility] Start: 08-25-2022 End: 08-26-[address] TOMMY RENO Facility:[facility] Start: 06-07-2022 Encounter for genera l adult medical examination without abnormal findings DR TOMMY RENO [facility] Start: 06-02-2022 End: 06-03-[address] TOMMY RENO Facility:[facility] Start: 06-02-2022 End: 06-03-2022 Encounter for general adult medical examination without abnormal findings DR TOMMY RENO Facility:[facility] Start: 05-10-2022 End: 05-10-2022 ambulatory Shaikh Lowell [facility] Work Phone: Start: 05-10-2022 End: 05-10-2022 Patient encounter procedure MD Shaikh Etienne Work Phone: [facility] Procedures Date Procedure Procedure Detail Performing Clinician Start: 10-21-2024 IGP,APTIMA HPV,AGE GDLN Oni Christopher DO Work Phone: Start: 09-15-2024 MM TOMOSYNTHESIS SCR EENING BI Generic External Data Provider Start: 09-15-2024 Mammography Generic Pr ovider Start: 09-14-2023 Mammography Oni Fazi o DO Work Phone: Start: 05-10-2022 X-ray of left ankle MD Shaikh Etienne Work Phone: Plan of Treatment Date Care Activity Detail Author Start: 10-27-2025 End: 10-27-2025 Patient encounter procedure 10/27/2025 11:00 AM EDT [facility] Visit [facility] [address] [place] [phone] Oni White, DO [address] [place], [place] [phone] [facility] Start: 09-15-2025 Screening for malign ant neoplasm of breast Mammogram [facility] Start: 08-02-2025 Screening for malign ant neoplasm of colon [facility] Start: 03-23-2025 End: 03-23-2025 Patient encounter procedure 03/23/2025 10:45 AM EDT Office Visit [facility] [address] [place] [address] Tommy Reno MD [address] [place] [address] [facility] Start: 10-21-2024 End: 10-21-2024 Patient encounter procedure 10/21/2024 9:20 AM EDT Office Visit [facility] [address] [place] [phone] Oni White, DO [address] [place], [place] [id number] [facility] Start: 10-14-2024 End: 10-14-2024 Patient encounter procedure 10/14/2024 10:00 AM EDT Office Visit [facility] [address] [place] [phone] Oni White, DO [address] [place], [place] [id number] [facility] Start: 09-23-2024 End: 09-23-2025 Basic metabolic 1998 panel - Serum or Plasma Basic metabolic panel Lab Routine Annual physical exam Expected: 09/23/2024 (Approximate), Expires: 09/23/2025 [facility] Comment on above: Expected: 09/23/2024 (Approximate), Expires: 09/23/2025 Start: 09-23-2024 End: 09-23-2025 CBC W Auto Differential panel - Blood CBC and differential Lab Routine Annual physical exam Expected: 09/23/2024 (Approximate), Expires: 09/23/2025 [facility] Comment on above: Expected: 09/23/2024 (Approximate), Expires: 09/23/2025 Start: 09-23-2024 End: 09-23-2025 Hemoglobin A1c/Hemoglobin.total in Blood Hemoglobin A1c Lab Routine Annual physical exam Expected: 09/23/2024 (Approximate), Expires: 09/23/2025 [facility] Work Phone: Comment on above: Expected: 09/23/2024 (Approximate), Expires: 09/23/2025 Start: 09-23-2024 End: 09-23-2025 Hepatic function 2000 panel - Serum or Plasma Hepatic function panel Lab Routine Annual physical exam Expected: 09/23/2024 (Approximate), Expires: 09/23/2025 [facility] Comment on above: Expected: 09/23/2024 (Approximate), Expires: 09/23/2025 Start: 09-23-2024 End: 09-23-2025 Lipid 1996 panel - Serum or Plasma Lipid panel Lab Routine Annual physical exam Expected: 09/23/2024 (Approximate), Expires: 09/23/2025 [facility] Comment on above: Expected: 09/23/2024 (Approximate), Expires: 09/23/2025 Start: 09-23-2024 End: 09-23-2025 Thyrotropin [Units/volume] in Serum or Plasma TSH Lab Routine Annual physical exam Expected: 09/23/2024 (Approximate), Expires: 09/23/2025 [facility] Comment on above: Expected: 09/23/2024 (Approximate), Expires: 09/23/2025 Start: 09-23-2024 End: 09-23-2024 Patient encounter procedure 09/23/2024 10:45 AM EST Office Visit [facility] [address] [place] [phone] Tommy Reno MD [address] [place] [address] [facility] Start: 09-14-2024 Screening for malign ant neoplasm of breast Mammogram [facility] Start: 04-06-2024 Influenza vaccination Influenza Vacc ine (#1) [facility] Start: 03-03-2024 End: 03-03-2024 Patient encounter procedure 03/03/2024 10:30 AM EDT Office Visit [facility] [address] [place] [address] Tommy Reno MD [address] [place] [address] [facility] Start: 10-09-2023 End: 10-09-2023 Patient encounter procedure 10/09/2023 11:00 AM EST Office Visit [facility] [address] [place] [phone] Oni White, [address] [place], [place] [id number] [facility] Start: 2005 Screening for malign ant neoplasm of breast Mammogram [facility] Start: 1995 Screening for malign ant neoplasm of cervix [facility] Start: 1986 Screening for malign ant neoplasm of cervix Pap Smear [facility] Start: 1965 Screening for malign ant neoplasm of colon [facility] THIN PREP TIS PAP AN D HR HPV DNA THIN PREP TIS PAP AND HR HPV DNA Pathology and Cytology Routine Well woman exam with routine gynecological exam Ordered: 10/21/2024 [facility] Work Phone: Comment on above: Ordered: 10/21/2024 Immunizations Immunization Date Immunization Notes Care Provider Fa [facility] 05-24-2023 influenza virus vacc ine, unspecified formulation Tommy Reno MD Work Phone: [facility] 08-29-2022 Moderna SARS-CoV-2 50mcg/0.5mL Booster Anita Dee MD Work Phone: [facility] 08-04-2019 zoster vaccine recombinant Anita Dee MD Work Phone: [facility] 06-03-2019 zoster vaccine recombinant Anita Dee MD Work Phone: [facility] Healthcare Payers Date Payer Category Payer Private Health Insurance [employer] [id number] 2022 Unknown [employer] [id number] 2022-Present [address] [address] [place] [address] [id number] 2022 Self-pay [id number] 1965 Unknown [id number] .[id number] 1965 Unknown [id number] .[id number] .2.593 1965 Unknown [id number] .2.593 1965 Unknown [id number] [id number] .2.1259 1965 Unknown [id number] .2.1259 1965 Unknown [id number] 2..[id number] .2.1259 1965 Unknown [id number] [id number] .2.1259 1965 Unknown [id number] .2.1259 1959 Unknown [id number] 1959 Unknown [id number] Unknown [id number] .2.531 [facility] [id number] Social History Date Type Detail Facility Tobacco smoking stat [facility] Unknown if ever smoked [facility] Work Phone: Start: 1965 Sex Assigned At Female F [facility] Start: 04-02-2023 [facility] Start: 04-02-2023 Tobacco use and exposure Smoke less tobacco non-user [facility] Start: 09-05-2023 End: 10-21-2024 Alcohol intake Lifetime non-drinker (finding) [facility] Start: 09-04-2023 End: 09-23-2024 History of Social function [facility] Start: 09-04-2023 End: 09-23-2024 Humiliation, Afraid, Rape, and Kick questionnaire [HARK] [...] [facility] History of Present illness Narrative 10-21-2024 Jennifer JAIMIE Sanford - 10/21/2024 9:20 AM EDT Note Date & Type Note Facility 10-21-2024 History of Presen t illness Narrative Reason for Appointment: Patient ID: Ankit Romero is a 59 y.o. female who presents for Well Women Visit Patient presents today for Annual Exam. MEDICATIONS Current Outpatient Medications Medication Instructions biotin 10 MG capsule 1 capsule, Daily Calcium Citrate-Vitamin D (CALCIUM CITRATE +D PO) 1 tablet, Daily celecoxib (CeleBREX) 200 MG capsule TAKE 1 CAPSULE BY MOUTH TWICE DAILY NEEDED cetirizine (ZYRTEC) 10 mg, Daily fluconazole (Diflucan) 150 MG tablet 1 PO once, may repeat in 72 if needed folic acid (FOLVITE) 0.8 mg, Daily furosemide (LASIX) 40 mg, Oral, 2 times daily Magnesium 500 MG capsule 1 capsule, Daily Multiple Vitamins-Minerals (multivitamin with minerals) tablet 1 tablet, Daily potassium chloride CR (Klor-Con) 10 MEQ ER tablet 10 mEq, Oral, Daily pravastatin (PRAVACHOL) 40 mg, Oral, Nightly predniSONE (Deltasone) 10 MG tablet 6 PO daily x 3 days, 4 PO daily x 3 days, 2 PO daily x 3 days, 1 PO daily x 3 days Rhubarb (ESTROVEN COMPLETE PO) 1 tablet, Daily SUMAtriptan (Imitrex) 100 MG tablet TAKE 1 TABLET(100 MG) BY MOUTH 1 TIME NEEDED FOR MIGRAINE topiramate (TOPAMAX) 100 mg, Oral, Daily zinc gluconate 50 mg, Daily ALLERGIES Allergies Allergen Reactions Cefdinir Other Cause bladder and yeast infection Mercury Hives and Itching Trimethoprim Unknown Iodine Hives, Itching, Rash and Swelling Other Reaction(s): Unknown Levaquin [Levofloxacin] Other Shaky, jittery Sulfa Antibiotics Hives, Itching, Rash, Swelling and Unknown PROBLEMS Active Ambulatory Problems Diagnosis Date Noted Chronic rhinosinusitis 04/02/2023 Class 1 obesity due to excess calories with serious comorbidity and body mass index (BMI) of 33.0 to 33.9 in adult 04/02/2023 Left-sided tinnitus 04/02/2023 Edema 04/02/2023 Gastroesophageal reflux disease 04/02/2023 Hyperlipidemia (CMS/HCC) 04/02/2023 Menopausal symptom 04/02/2023 Migraine without aura and without status migrainosus, not intractable (CMS/HCC) 04/02/2023 Sensorineural hearing loss (SNHL), bilateral 04/04/2023 Annual physical exam 09/05/2023 Breast cancer screening by mammogram 09/05/2023 Prediabetes 09/23/2024 Resolved Ambulatory Problems Diagnosis Date Noted Acute non-recurrent pansinusitis 04/02/2023 Sinusitis 04/02/2023 Yeast infection 04/02/2023 Acute UTI 03/21/2024 Past Medical History: Diagnosis Date Allergic rhinitis, mild At standard risk for fall Chronic depression (CMS/HCC) Chronic edema Class 1 obesity 04/02/2023 Dyslipidemia (CMS/HCC) GERD without esophagitis Greater trochanteric bursitis, left Hot flashes It band syndrome, left Menopausal symptoms Migraine without status migrainosus, not intractable, unspecified migraine type (CMS/HCC) Postmenopausal HISTORY PAST MEDICAL HISTORY SOCIAL HISTORY Past Medical History: Diagnosis Date Allergic rhinitis, mild At standard risk for fall Chronic depression (CMS/HCC) Chronic edema Class 1 obesity 04/02/2023 Dyslipidemia (CMS/HCC) GERD without esophagitis Greater trochanteric bursitis, left Hot flashes It band syndrome, left Menopausal symptoms Migraine without status migrainosus, not intractable, unspecified migraine type (CMS/HCC) Postmenopausal Social History Tobacco Use Smoking status: Never Smokeless tobacco: Never Substance Use Topics Alcohol use: Never Drug use: Never FAMILY HISTORY Family History Problem Relation Name Age of Onset COPD Mother Heart disease Mother Heart failure Mother Hypertension Mother Cancer Mother Breast cancer Hypertension Father Cancer Father Prostate cancer No Known Problems Brother Hypertension Maternal Grandmother Heart attack Maternal Grandmother Osteoporosis Maternal Grandfather Hypertension Paternal Grandfather SURGICAL HISTORY Past Surgical History: Procedure Laterality Date MOLE REMOVAL TONSILLECTOMY & Adenoidectomy WISDOM TOOTH EXTRACTION REVIEW OF SYSTEMS Review of Systems: Review of Systems Constitutional: Negative. HENT: Negative. Eyes: Negative. Respiratory: Negative. Cardiovascular: Negative. Gastrointestinal: Negative. Genitourinary: Negative. Musculoskeletal: Negative. Skin: Negative. Neurological: Negative. All other systems reviewed and are negative. Hematological: Negative. Endocrine: Negative. Allergic/Immunologic: Negative. OBJECTIVE Objective: Physical Exam Constitutional: Appearance: Normal appearance. She is well-developed. Genitourinary: Vulva normal. Breasts: Breasts are soft. Right: Normal. Left: Normal. Cardiovascular: Rate and Rhythm: Normal rate and regular rhythm. Pulmonary: Effort: Pulmonary effort is normal. Breath sounds: Normal breath sounds. Abdominal: General: Bowel sounds are normal. There is no distension. Palpations: Abdomen is soft. Tenderness: There is no abdominal tenderness. There is no guarding or rebound. Musculoskeletal: General: No swelling. Normal range of motion. Right lower leg: No edema. Left lower leg: No edema. Neurological: Mental Status: She is alert and oriented to person, place, and time. Skin: General: Skin is warm and dry. Psychiatric: Mood and Affect: Mood normal. Behavior: Behavior normal. Vitals and nursing note reviewed. Exam conducted with a human resources trainer present. Vitals: Estimated body mass index is 33.73 kg/m as calculated from the following: Height as of 09/23/24: 5' 6 . Weight as of this encounter: 209 lb. BP: 124/82 No LMP recorded. Patient is postmenopausal. ASSESSMENT & PLAN ICD-10-CM 1. Well woman exam with routine gynecological exam Z01.419 THIN PREP TIS PAP AND HR HPV DNA 2. Encounter for screening mammogram for malignant neoplasm of breast Z12.31 CANCELED: Bilateral screening mammogram CANCELED: Bilateral screening mammogram Annual: Patient presents today for an annual exam. Patient states she is doing well and has no complaints. Pap was obtained without difficulty and patient given mammogram order to have scheduled/obtained. No orders of the defined types were placed in this encounter. Follow Up: Patient is to return in one year for annual unless needed otherwise. Documented by Jennifer Sanford LPN on behalf of: Oni White DO documented in this encounter [facility] History of Present illness Narrative 09-23-2024 Tommy Reno MD - 09/23/2024 11:17 AM Suyapa Reno MD - 09/23/2024 11:16 AM Suyapa Reno MD - 09/23/2024 10:45 AM EST Note Date & Type Note Facility 09-23-2024 History of Presen t illness Narrative Associated Problem(s): Chronic rhinosinusitis Continues to have symptoms and ears plugged. Fluid behind TM. Treat with prednisone for longer taper. Continue flonase. If no improvement will need to see ENT. Associated Problem(s): Annual physical exam Due for labs. Discussed proper diet and regular aerobic exercise. Need aerobic exercise 5-6 days a week for 30 minutes at a time. Smaller portions and limit total calories. Cologuard normal in 2021. Tetanus every 10 years. Advised not to smoke. Images from the original note were not included. Subjective Patient ID: Ankit Romero is a 59 y.o. female who presents for Follow-up (6m f/up) and Sinusitis (Drainage with ear pain). Presents for annual PE. Patient feels well today. Weight up 3 pounds since last visit. Tries to stay active at work but no regular exercise or activity at home. Tries to watch diet and eat healthy. Increased fruits and vegetables. Smaller portions and limits snacking. Tries to limit total daily calories. Due for labs. Continues to have problems with ears. Mild cough dry and nonproductive. Denies chest tightness or SOB. PENNY and sinus pressure in forehead and cheeks along with postnasal drip. Ears plugged and popping. Hearing decreased. Using flonase but not much relief. Review of Systems Respiratory: Negative for cough, [...] There is no guarding or rebound. Musculoskeletal: General: No swelling or tenderness. Cervical back: Neck supple. Right lower leg: No edema. Left lower leg: No edema. Skin: Findings: No erythema or rash. Neurological: General: No focal deficit present. Mental Status: She is alert and oriented to person, place, and time. Cranial Nerves: No cranial nerve deficit. Motor: No weakness. Gait: Gait normal. Assessment/Plan Problem List Items Addressed This Visit Chronic rhinosinusitis Continues to have symptoms and ears plugged. Fluid behind TM. Treat with prednisone for longer taper. Continue flonase. If no improvement will need to see ENT. Relevant Medications predniSONE (Deltasone) 10 MG tablet Annual physical exam - Primary Due for labs. Discussed proper diet and regular aerobic exercise. Need aerobic exercise 5-6 days a week for 30 minutes at a time. Smaller portions and limit total calories. Cologuard normal in 2021. Tetanus every 10 years. Advised not to smoke. Relevant Orders Hemoglobin A1c Basic metabolic panel CBC and differential Hepatic function panel Lipid panel TSH Other Visit Diagnoses Acute UTI Relevant Medications fluconazole (Diflucan) 150 MG tablet documented in this encounter [facility] History of Present illness Narrative 08-28-2024 [...] 50 MG tablet documented in this encounter [facility] Telephone encounter Note 09-07-2023 Telephone Encounter - Anita Dee MD - 09/07/2023 12:45 PM EST Note Date & Type Note Facility 09-07-2023 Telephone encount er Note prn [facility] Note 09-07-2023 Telephone Encounter - Anita [...] (4 since 04/23/2023). documented in this encounter [facility] Telephone encounter Note 09-07-2023 Telephone Encounter - Shantell Luiz - 09/07/2023 11:34 AM EST Note Date [...] history of cancelling appts (4 since 04/23/2023). [facility] Evaluation note Note Date & Type Note Facility Evaluation note [facility] Evaluation note Note Date [...] non-recurrent pansinusitis- Primary documented in this encounter [facility] Evaluation note Note Date & Type [...] specified Seasonal allergic rhinitis due to pollen Annual physical exam- Primary Routine general medical examination at a health care facility Chronic rhinosinusitis Unspecified sinusitis (chronic) Acute UTI Urinary tract infection, site not specified documented in this encounter [facility] Evaluation note Note Date & Type Note Facility Evaluation note Diagnosis Annual physical exam- Primary Routine general medical examination at a health care facility Breast cancer screening by mammogram Migraine without aura and without status migrainosus, not intractable ([facility]) Upper respiratory tract infection, unspecified type Migraine without aura and without status migrainosus, not intractable ([facility]/HCC)- Primary Generalized edema Edema Acute UTI Urinary tract infection, site not specified Seasonal allergic rhinitis due to pollen Annual physical exam- Primary Routine general medical examination at a health care facility Chronic rhinosinusitis Unspecified sinusitis (chronic) Acute UTI Urinary tract infection, site not specified Well woman exam with routine gynecological exam Routine gynecological examination Encounter for screening mammogram for malignant neoplasm of breast documented in this encounter [facility] Advance Directives Advance Directive Response Recorded Date/ Time Advance Directives No November 19 1:28pm Summary Purpose Family History No Family History Records FoundNo Family History Records FoundNo Family History Records Found Additional Source Comments Care Teams (unrecognized sec tion and content) Team Status: Inactive Member Role Status Dates Shaikh Lowell MD Attending Provider Active Document Restorer Relationship Specialty Start Date End Date Tommy Reno MD [address] [place] [address] PCP - General Family Medicine 08/28/23 Document Restorer Relationship Specialty Start Date End Date Tommy Reno MD [address] [place] [address] PCP - General Family Medicine 08/28/23 Document Restorer Relationship Specialty Start Date End Date Tommy Reno MD [address] [place] [id number] PCP - General Family Medicine 08/28/23 Document Restorer Relationship Specialty Start Date End Date Tommy Reno MD [address] [place] [address] PCP - General Family Medicine 08/28/23 Document Restorer Relationship Specialty Start Date End Date Tommy Reno MD [address] [place] [id number] PCP - General Family Medicine 08/28/23 Document Restorer Relationship Specialty Start Date End Date Tommy Reno MD [address] [place] [address] PCP - General Family Medicine 08/28/23 Document Restorer Relationship Specialty Start Date End Date Tommy Reno MD [address] [place] [phone] PCP - General Family Medicine 08/28/23 Goals (unrecognized section and content) Goals may be documented in a n alternate section INFORMATION SOURCE (unrecogn ized section and content) DATE CREATED AUTHOR [facility]12/2022 [facility] DATE CREATED AUTHOR AUTHOR'S ORGANIZ ATION 11/23/2022 [facility] DATE CREATED AUTHOR AUTHOR'S ORGANIZ ATION 10/23/2024 [facility] EPIC Reason for Visit (unrecogniz ed section and content) Reason Comments Sinusitis Earache Reason Comments Follow-up 6m f/up Sinusitis Drainage with ear pa in Reason Comments Well Women Visit FOR RECORDS PERTAINING TO PATIENTS WHO ARE [...] BE BASED ON THE PRIMARY CLINICAL RECORDS. [facility]. provides no warranty or guarantee of the accuracy or completeness of information in this document.
[2024-11-12 11:30] LABS: Basophils Absolute Auto 0.1 10^3/uL (0.0-0.1); Basophils Percent Auto 0.8 % (0.2-2.0); Eosinophils Absolute Auto 0.1 10^3/uL (0.0-0.7); Eosinophils Percent Auto 1.3 % (0.9-7.0); Hematocrit 44.3 % (36.0-48.0); Hemoglobin 14.9 g/dL (12.0-16.0); Immature Granulocytes Abs Auto 0.01 10^3/uL (0.00-0.03); Immature Granulocytes Pct Auto 0.1 % (0.0-0.5); Lymphocytes Absolute Auto 2.2 10^3/uL (1.2-3.8); Lymphocytes Percent Auto 28.7 % (20.5-60.0); Mean Corpuscular HGB Conc 33.6 g/dL (29.9-35.2); Mean Corpuscular Hemoglobin 28.4 pg (26.7-34.0); Mean Corpuscular Volume 84.5 fL (81.0-99.0); Mean Platelet Volume 9.4 fL (9.5-13.5); Monocytes Absolute Auto 0.9 10^3/uL (0.3-0.8); Neutrophils Absolute Auto 4.5 10^3/uL (1.4-6.5); Neutrophils Percent Auto 58.1 % (43.0-75.0); Platelet Count 294 10^3/uL (150-450); Red Blood Count 5.24 10^6/uL (4.20-5.40); Red Cell Distribution Width 14.1 % (11.0-15.0); White Blood Count 7.7 10^3/uL (4.0-11.0)
[2024-11-12] MEDS: ONDANSETRON PF 4 MG/2 ML VIAL IV (11:30)
[2024-11-12] MEDS: KETOROLAC TROMETHAMINE 30 MG/ML VIAL 15 MG IVP (11:30)
[2024-11-12 11:43] LABS: Clarity Urine CLEAR (CLEAR); Color Urine DK. ORANGE (YELLOW)
[2024-11-12 11:47] LABS: Bilirubin Urine COLOR INTERFERENCE (NEGATIVE); Blood Urine COLOR INTERFERENCE (NEGATIVE); Glucose Urine UA COLOR INTERFERENCE mg/dL (NEGATIVE); Ketones Urine COLOR INTERFERENCE mg/dL (NEGATIVE); Leukocyte Esterase Urine COLOR INTERFERENCE (NEGATIVE); Nitrite Urine COLOR INTERFERENCE (NEGATIVE); Protein Urine COLOR INTERFERENCE mg/dL (NEG/TRACE); Urobilinogen Urine COLOR INTERFERENCE EU/dL (0.2-1.0); pH Urine COLOR INTERFERENCE (5.0-9.0)
[2024-11-12 11:48] LABS: Alanine Aminotransferase 14 U/L (14-59); Albumin Globulin Ratio 0.9; Albumin Level 3.7 g/dL (3.4-5.0); Alkaline Phosphatase 108 U/L (46-116); Aspartate Amino Transferase 21 U/L (15-37); BUN Creatinine Ratio 13.2; Bilirubin Total 0.6 mg/dL (0.2-1.0); Calcium 9.2 mg/dL (8.5-10.1); Carbon Dioxide 24.5 mmol/L (21.0-32.0); Chloride 103 mmol/L (98-107); Estimated GFR (African America 38 (>=60 mL/min/1.73m^2); Estimated GFR (Non-African Ame 31 (>=60 mL/min/1.73m^2); Glucose 112 mg/dL (74-106); Potassium 3.5 mmol/L (3.5-5.1); Sodium 139 mmol/L (136-145); Total Protein 7.7 g/dL (6.4-8.2)
[2024-11-12 11:50] LABS: Bacteria Urine TRACE #/HPF (NONE SEEN); Cast Seen? NONE SEEN #/LPF (NONE SEEN); Crystals Seen? None Seen #/HPF (None Seen); Mucus Urine NONE SEEN (NONE SEEN); RBC Urine 0-2 #/HPF (0-2); Squamous Epithelial Cell Urine RARE #/LPF (NONE/RARE)
[2024-11-12 11:51] LABS: Urine Culture Indicated NO
--- NOTE | 2024-11-12 12:48 | ECG_ITS ---
[facility] Test Date: 2024-11-12 Pat Name: ANKIT SULLIVAN Department: Room: [facility] Gender: Female Autobody Technician: : 1965 Requested By: [id number] Order Number: [id number] Reading MD: ALDO MCGARRY M.D. Measurements Intervals [place] Rate: 80 P: 56 WV: 184 QRS: 15 QRSD: 88 T: 38 QT: 400 QTc: 463 Interpretive Statements SINUS RHYTHM LOW QRS VOLTAGE IN PRECORDIAL LEADS [QRS DEFLECTION < 1.0 mV IN CHEST LEADS] Abnormal ECG No previous ECG available for comparison Electronically Signed On 11-13-2024 8:06:24 EDT by ALDO MCGARRY M.D.
--- NOTE | 2024-11-12 13:02 | P.HP_ITS ---
HPI H&P: HPI History of Present Illness Chief complaint: ABDOMINAL PAIN, L SIDE KIDNEY STONE Narrative: Patient is a 59 y.o female with past medical history of HLD, migraine headaches who presented to the ER today with increased left groin pain, nausea. Patient states it's been on going for 1 week. She has had some urinary urgency, frequency no blood. She took a Pyridium thinking it was a UTI. She denies fever or chills. She has never had kidney stones before. She takes lasix for some lower ext swelling. She has no prior heart or lung issues. She is able to walk up 2 flights of stairs without chest pain or SOB. She has never had surgery before. She denies any family history of issues with anesthesia or surgery before. Patient has not had food since 6pm last night, some coffee about 8am. No smoking history. ER findings: WBC's 7.7, Cr 1.67, BUN 22, K 3.[address] scan abd/pelvis: severe left sided hydronephrosis with hydroureter from 3 stones in the left distal ureter greatest is 6.5mm, normal right kidney with 2mm stone left pole. Dr. Velazquez or Urology was notified and plans to take her to OR today. patient is currently NPO. Opioid HPI Opioid Management Most Recent Pain and Opioid Data: No Data to Display Review of Systems ROS Narrative ROS: a complete review of systems were reviewed with patient and are positive as below or listed in History of Chief Complaint. General: no fever, chills, night sweats Head: no headache, trauma, visual changes, nausea or vomiting Skin: no reported rashes, itching or sores Eyes: no blurriness of vision Ears: no reported hearing loss, vertigo, earache, or tinnitus Throat: no sore throat, hoarseness, swelling of neck, or tongue pain Heart: no chest pain Lungs: no shortness of breath or cough GI: no diarrhea but vomiting/nausea Urinary: urinary urgency, frequency, pain Neuro: no numbness or tingling HEM: no bleeding issues or bruising ENDO: no thyroid problems Psych: no anxiety or depression [facility] Medical History (Updated 11/12/24 @ 13:08 by Roselyn Landrum DO) Headache, chronic migraine without aura ?G43.709 - Chronic migraine without aura, not intractable, without status migrainosus (ICD-10) High blood cholesterol ?E78.00 - Pure hypercholesterolemia, unspecified (ICD-10) Leg swelling ?M79.89 - Other specified soft tissue disorders (ICD-10) Leg swelling ?M79.89 - Other specified soft tissue disorders (ICD-10) Surgical History (Updated 11/12/24 @ 13:53 by Esthela Tanner) [place] teeth extracted ?K08.409 - Partial loss of teeth, unspecified cause, unspecified class (ICD- 10) History of tonsillectomy ?Z90.89 - Acquired absence of other organs (ICD-10) Social History Little interest or pleasure in doing things: not at all Feeling down, depressed, or hopeless: not at all Meds Home Medications and Allergies Home Medications ?Medication ?Instructions ?Recorded ?Confirmed ?Type furosemide 40 mg tablet 40 mg PO Q12H 11/12/24 11/12/24 History potassium chloride 10 mEq 10 meq PO DAILY 11/12/24 11/12/24 History tablet,extended release pravastatin 40 mg tablet 40 mg PO .QHS 11/12/24 11/12/24 History topiramate 100 mg tablet 100 mg PO DAILY 11/12/24 11/12/24 History Allergies Allergy/AdvReac Type Severity Reaction Status Date / Time iodine Allergy Rash Verified 11/12/24 10:58 mercury (elemental) Allergy Rash Verified 11/12/24 10:58 Sulfa (Sulfonamide Allergy Rash Verified 11/12/24 10:58 Antibiotics) Exam Narrative Exam Narrative: General: Patient is alert, and oriented to person, place and time with normal affect, proper hygiene Skin: no visible rashes, or ulcers Head: atraumatic, acephalic Eyes: PERRLA, no nystagmus present, conjunctiva clear, no scleral icterus Ears: normal gross auditory acuity Neck: no masses palpated, normal thyroid Heart: Normal rate and rhythm, no murmurs/rubs/gallops Lungs: no audible wheezes, crackles and normal breath sounds all lung ellis Abdomen: Normal audible bowel sounds, no distension, No palpable masses, no organomegaly, no rebound/guarding/ or rigidity Musculoskeletal: no swelling bilateral lower extremities Neuro: CN II-X grossly intact Constitutional Vital Signs, click to edit/add: Last Vital Signs Temp 98.2 F 11/12/24 10:58 Pulse 109 H 11/12/24 10:58 Resp 20 11/12/24 10:58 BP 124/80 11/12/24 10:58 Pulse Ox 95 11/12/24 10:58 O2 Del Method Room Air 11/12/24 10:58 Results Labs Labs: Short CBC 11/12/24 Range/Units 11:23 WBC 7.7 (4.0-11.0) 10^3/uL Hgb 14.9 (12.0-16.0) g/dL Hct 44.3 (36.0-48.0) % Plt Count 294 (150-450) 10^3/uL BMP 11/12/24 11:23 Sodium 139 Potassium 3.5 Chloride 103 Carbon Dioxide 24.5 BUN 22.0 H Creatinine 1.67 H Glucose 112 H Calcium 9.2 Liver Function 11/12/24 Range/Units 11:23 Total Bilirubin 0.6 (0.2-1.0) mg/dL AST 21 (15-37) U/L ALT 14 (14-59) U/L Alkaline Phosphatase 108 (46-116) U/L Albumin 3.7 (3.4-5.0) g/dL Urine 11/12/24 Range/Units 11:35 Urine Color Dk. orange (YELLOW) Urine Clarity Clear (CLEAR) Urine pH Color interference A (5.0-9.0) Ur Specific [place] 1.020 (1.005-1.025) Urine Protein Color interference A (NEG/TRACE) mg/dL Urine Glucose (UA) Color interference A (NEGATIVE) mg/dL Assessment and Plan Assessment and Plan (1) Hydronephrosis, left: (2) Calculus of distal left ureter: (3) Hydroureter: (4) DERICK (acute kidney injury): (5) High blood cholesterol: (6) Headache, chronic migraine without aura: Qualifiers: Intractability: not intractable Status migrainosus presence: without status migrainosus Qualified Code(s): G43.709 - Chronic migraine without aura, not intractable, without status migrainosus Plan Plan for surgery today, will resume home meds after surgery. Pain control with Toradol. WBC's and hemoglobin normal but with Cr 1.67 BUN 22. Will get baseline EKG. LR @125. Patient is NPO. Plan for intervention by Urology today. Patient is a full code SCD's for prophylaxis patient is observation status
[2024-11-12] MEDS: LACTATED RINGER'S SOLUTION 1,000 ML 125 ML IV (14:09)
[2024-11-12] MEDS: CEFAZOLIN SODIUM/DEXTROSE,ISO 2 GM/50 ML PIGGYBACK IV (15:10)
[2024-11-12] MEDS: IOHEXOL 300 MG/ML - 50 ML BTL INJ (15:45)
[2024-11-12] MEDS: LACTATED RINGER'S SOLUTION 1,000 ML 50 ML IV (16:17)
--- NOTE | 2024-11-12 16:43 | PM.URCN ---
Urology - CN: HPI Date of Consult Consult date: 11/12/24 Requesting Physician: Roselyn Landrum DO Primary Care Provider: Tommy Hayes MD Consult Narrative Reason for consult IM: Obstructing kidney stones in left lower ureter, severe hydronephrosis Narrative: 59 year old female with no prior kidney stone history presents to ER with 10 day history of left abdominal pain. CT shows severe left hydronephrosis and three stones in the proximal aspect of the ureter. consult requested. Has elevated Cr consistent with obstruction, DERICK. Denies fever, chills. Pain worse last night and today. Entire PMH,PSH,ROS,family and social history, meds, allergies as noted in the admission H and P performed by Dr. Landrum earlier today and unchanged. cc:: CC: Roselyn Landrum DO PFS PFSH Medical History (Updated 11/12/24 @ 16:49 by Rolando Velazquez MD) Headache, chronic migraine without aura ?G43.709 - Chronic migraine without aura, not intractable, without status migrainosus (ICD-10) High blood cholesterol ?E78.00 - Pure hypercholesterolemia, unspecified (ICD-10) Leg swelling ?M79.89 - Other specified soft tissue disorders (ICD-10) Leg swelling ?M79.89 - Other specified soft tissue disorders (ICD-10) Surgical History (Updated 11/12/24 @ 13:53 by Esthela Tanner) [place] teeth extracted ?K08.409 - Partial loss of teeth, unspecified cause, unspecified class (ICD-10) History of tonsillectomy ?Z90.89 - Acquired absence of other organs (ICD-10) Family History (Updated 11/12/24 @ 16:25 by Mariama Urbina) Granddaughter No problems noted. Grandfather Family history of myocardial infarction Mother Family history of COPD (chronic obstructive pulmonary disease) Family history of cancer Father Family history of cancer Grandmother Family history of stroke Social History (Updated 11/12/24 @ 13:57 by Esthela Tanner) Within the past year, how often did you have a drink containing alcohol: never Score interpretation: A score less than 3 is consistent with normal alcohol consumption. Smoking status: Never smoker Non-prescribed substance use: denies use Previous occupational history: [employer] Highest level of school completed/degree received: high school graduate Are you now , , , , never or living with a partner: Little interest or pleasure in doing things: not at all Feeling down, depressed, or hopeless: not at all Meds Home Medications and Allergies Home Medications ?Medication ?Instructions ?Recorded ?Confirmed ?Type furosemide 40 mg tablet 40 mg PO Q12H 11/12/24 11/12/24 History potassium chloride 10 mEq 10 meq PO DAILY 11/12/24 11/12/24 History tablet,extended release pravastatin 40 mg tablet 40 mg PO .QHS 11/12/24 11/12/24 History topiramate 100 mg tablet 100 mg PO DAILY 11/12/24 11/12/24 History Allergies Allergy/AdvReac Type Severity Reaction Status Date / Time iodine Allergy Rash Verified 11/12/24 10:58 mercury (elemental) Allergy Rash Verified 11/12/24 10:58 Sulfa (Sulfonamide Allergy Rash Verified 11/12/24 10:58 Antibiotics) Exam Narrative Exam Narrative: HEENT normal Heart: RRR Lungs : clear Abd: soft, mildly tender left lateral abdomen, negative peritoneal signs Normal external female genitalia Awake, alert, no deficits Constitutional Vital Signs, click to edit/add: Last Vital Signs Temp 97.2 F L 11/12/24 13:27 Pulse 84 11/12/24 14:36 Resp 20 11/12/24 13:27 BP 134/83 11/12/24 13:27 Pulse Ox 95 11/12/24 13:27 O2 Del Method Room Air 11/12/24 13:27 Results Labs Labs: Short CBC 11/12/24 Range/Units 11:23 WBC 7.7 (4.0-11.0) 10^3/uL Hgb 14.9 (12.0-16.0) g/dL Hct 44.3 (36.0-48.0) % Plt Count 294 (150-450) 10^3/uL BMP 11/12/24 11:23 Sodium 139 Potassium 3.5 Chloride 103 Carbon Dioxide 24.5 BUN 22.0 H Creatinine 1.67 H Glucose 112 H Calcium 9.2 Liver Function 11/12/24 Range/Units 11:23 Total Bilirubin 0.6 (0.2-1.0) mg/dL AST 21 (15-37) U/L ALT 14 (14-59) U/L Alkaline Phosphatase 108 (46-116) U/L Albumin 3.7 (3.4-5.0) g/dL Urine 11/12/24 Range/Units 11:35 Urine Color Dk. orange (YELLOW) Urine Clarity Clear (CLEAR) Urine pH Color interference A (5.0-9.0) Ur Specific [place] 1.020 (1.005-1.025) Urine Protein Color interference A (NEG/TRACE) mg/dL Urine Glucose (UA) Color interference A (NEGATIVE) mg/dL Additional Findings Additional findings: Viewed CT scan,viewed labs Urology Assessment and Plan Assessment and Plan (1) Hydronephrosis with ureteral calculus: (2) DERICK (acute kidney injury): (3) Flank pain: Plan Discussed options with the patient and her daughter. Given the multiple stones, severe hydronephrosis, risk for concominant UTI development which could lead to sepsis, I recommend immediate surgical intervention, with main goal to relieve obstruction with a stent. Secondary goal is to get access to the stones, laser ablate, and basket extract fragments. The patient wishes to proceed. Surgical risks discussed. Anesthesia risks discussed, including heart and lung problems. She is aware this may be a staged procedure. Risk of stent pain and irritation discussed.
[2024-11-12] MEDS: PROMETHAZINE HCL 12.5 MG in 0.9 % SODIUM CHLORIDE 50 ML 202 MG IV (17:01)
--- NOTE | 2024-11-12 17:06 | PC.NURSE ---
c/o nausea; no emesis; anesthesia notified
--- NOTE | 2024-11-12 17:08 | PC.NURSE ---
Medicated with Phenergan IV as ordered
--- NOTE | 2024-11-12 17:30 | PC.NURSE ---
No further c/o nausea
[2024-11-12] MEDS: ATORVASTATIN CALCIUM 10 MG TABLET PO (21:13)
[2024-11-12] MEDS: TOPIRAMATE 100 MG TABLET PO (21:38)
[2024-11-13] VITALS (10 sets, daily range): BP systolic 98–127; BP diastolic 60–77; PULSE 69–89; TEMP 36.3–36.4; O2SAT 91–95
[2024-11-13] MEDS: LACTATED RINGER'S SOLUTION 1,000 ML 125 ML IV (00:57)
[2024-11-13] MEDS: KETOROLAC TROMETHAMINE 30 MG/ML VIAL 15 MG IVP ×2 (04:01→10:35)
[2024-11-13 06:03] LABS: Basophils Percent Auto 0.1 % (0.2-2.0); Eosinophils Percent Auto 0.1 % (0.9-7.0); Hematocrit 38.2 % (36.0-48.0); Hemoglobin 12.7 g/dL (12.0-16.0); Immature Granulocytes Abs Auto 0.02 10^3/uL (0.00-0.03); Immature Granulocytes Pct Auto 0.2 % (0.0-0.5); Lymphocytes Percent Auto 11.7 % (20.5-60.0); Mean Corpuscular HGB Conc 33.2 g/dL (29.9-35.2); Mean Corpuscular Hemoglobin 28.2 pg (26.7-34.0); Mean Corpuscular Volume 84.9 fL (81.0-99.0); Mean Platelet Volume 9.6 fL (9.5-13.5); Monocytes Absolute Auto 0.3 10^3/uL (0.3-0.8); Monocytes Percent Auto 3.7 % (1.7-12.0); Neutrophils Absolute Auto 6.8 10^3/uL (1.4-6.5); Neutrophils Percent Auto 84.2 % (43.0-75.0); Platelet Count 285 10^3/uL (150-450); Red Cell Distribution Width 14.2 % (11.0-15.0); White Blood Count 8.1 10^3/uL (4.0-11.0)
[2024-11-13 06:17] LABS: Anion Gap 14.2; BUN Creatinine Ratio 15.5; Carbon Dioxide 22.6 mmol/L (21.0-32.0); Chloride 110 mmol/L (98-107); Estimated GFR (African America 58 (>=60 mL/min/1.73m^2); Estimated GFR (Non-African Ame 48 (>=60 mL/min/1.73m^2); Glucose 134 mg/dL (74-106); Potassium 3.8 mmol/L (3.5-5.1); Sodium 143 mmol/L (136-145)
--- NOTE | 2024-11-13 08:07 | P.DS_ITS ---
DS: Providers Provider Date of admission: 11/12/24 13:12 Primary care physician: Tommy Hayes MD Attending physician on admission: Roselyn Landrum Consults: 11/12/24 12:48 Consult to Urology Routine Consulting Provider: Rolando Velazquez Reason for consultation: left hydronephrosis with obstructive L stones Has provider been notified: Yes Discharging clinician: Roselyn Landrum DS: Diagnosis Discharge Diagnosis (1) Hydronephrosis with ureteral calculus: (2) DERICK (acute kidney injury): (3) Flank pain: DS: Summary Hospital Course Hospital Course: Patient is a 59 y.o female with past medical history of HLD, migraine headaches who presented to the ER today with increased left groin pain, nausea. Patient states it's been on going for 1 week. She has had some urinary urgency, frequency no blood. She took a Pyridium thinking it was a UTI. She denies fever or chills. She has never had kidney stones before. She takes lasix for some lower ext swelling. She has no prior heart or lung issues. She is able to walk up 2 flights of stairs without chest pain or SOB. She has never had surgery before. She denies any family history of issues with anesthesia or surgery before. No smoking history. ER findings: WBC's 7.7, Cr 1.67, BUN 22, K 3.[address] scan abd/pelvis: severe left sided hydronephrosis with hydroureter from 3 stones in the left distal ureter greatest is 6.5mm, normal right kidney with 2mm stone left pole. Dr. Velazquez, Urology took patient to OR last night for: 1. Cystoscopy. 2. Left retrograde pyelogram.3. Left ureteroscopy.4. Laser lithotripsy three left ureteral calculi with basket extraction of multiple calculi fragments.5. Left double J stent placement under fluoroscopic guidance. Patient tolerated the procedure well. She still admits to some irritative pain with sitting. Labs this morning are improved, Cr 1.16 and BUN 18, WBC's 8.1, hb 12.7. She has been afebrile. Patient will be discharged with oxybutynin PRN, cipro 500mg BID x 7 days, and [place] 5/325mg q8 hours PRN pain. Urology said no restrictions, just the more that she does, the more irritative the stent will be. I have given her work note to return to work 11/27/24. Doctor's [place] office will contact patient for clinic appointment for stent removal in the next 2-3 weeks. She may return to the ER with any worsening signs or symptoms. Vitals stable. Status at Discharge Functional status at discharge: independent ambulation Overall status at discharge: patient is progressing back to baseline Time Spent with Patient Time attestation: Total time spent providing and/or coordinating discharge services: Time spent: greater than 30 minutes Exam Narrative Exam Narrative: General: Patient is alert, and oriented to person, place and time with normal affect, proper hygiene Skin: no visible rashes, or ulcers Head: atraumatic, acephalic Eyes: PERRLA, no nystagmus present, conjunctiva clear, no scleral icterus Ears: normal gross auditory acuity Neck: no masses palpated, normal thyroid Heart: Normal rate and rhythm, no murmurs/rubs/gallops Lungs: no audible wheezes, crackles and normal breath sounds all lung ellis Abdomen: Normal audible bowel sounds, no distension, No palpable masses, no organomegaly, no rebound/guarding/ or rigidity Musculoskeletal: no swelling bilateral lower extremities Neuro: CN II-X grossly intact Constitutional Vital Signs, click to edit/add: Last Vital Signs Temp 97.6 F 11/13/24 04:00 Pulse 75 11/13/24 07:54 Resp 18 11/13/24 04:00 BP 113/70 11/13/24 04:00 Pulse Ox 93 L 11/13/24 04:00 O2 Del Method Room Air 11/13/24 04:00 DS: Data Data Completed and Pending Labs on day of discharge: Labs from last 24 hours 11/13/24 11/12/24 11/12/24 05:51 11:35 11:23 WBC 8.1 7.7 RBC 4.50 5.24 Hgb 12.7 14.9 Hct 38.2 44.3 MCV 84.9 84.5 MCH 28.2 28.4 MCHC 33.2 33.6 RDW 14.2 14.1 Plt Count 285 294 MPV 9.6 9.4 L Neut % (Auto) 84.2 H 58.1 Lymph % (Auto) 11.7 L 28.7 [place] % (Auto) 3.7 11.0 Eos % (Auto) 0.1 L 1.3 Baso % (Auto) 0.1 L 0.8 Neut # (Auto) 6.8 H 4.5 Lymph # (Auto) 1.0 L 2.2 [place] # (Auto) 0.3 0.9 H Eos # (Auto) 0.0 0.1 Baso # (Auto) 0.0 0.1 Abs Immat Gran (auto) 0.02 0.01 Imm/Tot Granulo (auto) 0.2 0.1 Sodium 143 139 Potassium 3.8 3.5 Chloride 110 H 103 Carbon Dioxide 22.6 24.5 Anion Gap 14.2 15.0 BUN 18.0 22.0 H Creatinine 1.16 H 1.67 H Est GFR ( Amer) 58 L 38 L Est GFR (Non-Af Amer) 48 L 31 L BUN/Creatinine Ratio 15.5 13.2 Glucose 134 H 112 H Calcium 9.0 9.2 Total Bilirubin 0.6 AST 21 ALT 14 Alkaline Phosphatase 108 Total Protein 7.7 Albumin 3.7 Globulin 4.0 Albumin/Globulin Ratio 0.9 Urine Color Dk. orange Urine Clarity Clear Urine pH Color interference A Ur Specific [place] 1.020 Urine Protein Color interference A Urine Glucose (UA) Color interference A Urine Ketones Color interference A Urine Occult Blood Color interference A Urine Nitrite Color interference A Urine Bilirubin Color interference A Urine Urobilinogen Color interference A Ur Leukocyte Esterase Color interference A Urine RBC 0-2 Urine WBC 2-5 A Ur Squamous Epith Cells Rare Urine Crystals None seen Urine Bacteria Trace A Urine Casts None seen Urine Mucus None seen Ur Culture Indicated? No Discharge Plan Discharge Disposition: Home, Self-Care Condition: Fair Discharge Medications: New ciprofloxacin HCl 500 mg tablet 500 mg PO Q12H 7 Days Qty: 14 0RF oxybutynin chloride 5 mg tablet 5 mg PO BID PRN (Reason: bladder spasms) 7 Days Qty: 14 0RF hydrocodone-acetaminophen 5-325 mg tablet 1 tab PO Q8H PRN (Reason: pain) 2 Days Qty: 6 0RF Continued furosemide 40 mg tablet 40 mg PO Q12H potassium chloride 10 mEq tablet extended release 10 meq PO DAILY pravastatin 40 mg tablet 40 mg PO .QHS topiramate 100 mg tablet 100 mg PO DAILY Activity: increase activity as tolerated Activity Detail: I have written work excuse to return to work on 11/27/24 Diet: advance to your usual diet Print Language: [place]ian Patient Instructions: Cystoscopy (GEN), Ureteral Stent Placement (GEN), Ureteroscopy (GEN) Forms: Portal Instructions Referrals: Rolando Velazquez MD [Physician] - (Please call my office to speak with Rayna, who is my support services manager. She will schedule you for a scope and removal of the stent under local anesthesia.) Follow Up Appointments: Dr. Velazquez's office will contact the patient to schedule a stent removal. [phone] December 09 @ 11:30am with Dr. Hayes [phone]
[2024-11-13] MEDS: FUROSEMIDE 40 MG TABLET PO (09:13)
[2024-11-13] MEDS: POTASSIUM CHLORIDE 10 MEQ ER TABLET PO (09:13)
--- NOTE | 2024-11-13 11:48 | CM.NOTE ---
Rounds made with Dr. Pastor Landrum. Dr. Landrum discussed test results, kidney function and discussed discharge plan for today with Mary. Urology will contact Mary to make appointment for followup for stent removal. Mary is to also followup with Dr. Hayes next week and to be off work until followup with Dr. Hayes. Plan is for discharge today.
--- NOTE | 2024-11-17 13:18 | CM.DCFOLLOWU ---
Person spoke with: patient How are you feeling?well How is your pain? not bad Did you understand your discharge instructions? yes Do you have any questions about your discharge instructions?no Were you given any prescriptions at discharge? yes Were you able to get your prescriptions filled?yes Do you understand how to take your medications as ordered? yes Do you have any questions about your follow up appointment and do you plan to keep your follow up appointment? no questions, left message for Dr. Velazquez's office, waiting for call back to scheduled follow up Is there anything else that you would like to discuss? no Questions/Comments/Concerns/Other:none
--- NOTE | 2024-11-18 13:57 | SWNOTE1 ---
SW called pt as she had questions in regards to paperwork and time off request. Pt wanted to speak with Dr. Landrum to see if she could fill out paperwork for [employer] the [employer] that handles her getting paid for the time off she needed since she was sick. SW advised pt that she will have to contact her PCP. She stated Dr. Hayes is out of office now. SW advised that someone in the office should be able to assist with this paperwork, possibly Diane Acharya. She asked if she should just take paperwork in? SW advised to call or take paper work in, either would be find. She voiced appreciation and will call back if any issues should arise.
== END 2024-11-13 13:34 | disposition home or self-care (01) ==
LOC: ER 12:38 → MS 13:15
PROVIDERS: Urology; Admitting Provider Family Medicine; Emergency Provider Emergency Medicine; PCP Family Medicine; Visit Provider Family Medicine
PROC: (CPT 918; principal; 2024-11-12 15:30)
DX: N13.2 Hydronephrosis with renal and ureteral calculous obstruction (principal); R10.32 Left lower quadrant pain; N17.9 Acute kidney failure, unspecified; E78.00 Pure hypercholesterolemia, unspecified; G43.709 Chronic migraine without aura, not intractable, without status migrainosus; Z79.899 Other long term (current) drug therapy
CPT/HCPCS: 52356; 36415; 74176; 74420; 80048; 80053; 81001; 82365; 85025; 93005; 96374; 96375; 96376; 99285; 99999; G0378; J0330; J0690; J1100; J1885; J2250; J2371; J2405; J2550; J2704; J3010; Q9967

== ENCOUNTER 2025-02-05 11:18 | Outpatient (OUT) | payer OTHER, SELFPAY ==
--- NOTE | 2025-02-05 11:21 | XR_ITS ---
The [address] [address] Patient Name: ANKIT SULLIVAN MRN: [id number] date: 1965 Sex: F Assigned Patient Location: [facility] Current Patient Location: [facility] Accession/Order Number: [id number] Exam Date: 02/05/2025 11:40 Report Date: 02/05/2025 11:42 At the request of: DESHAWN BALES MD Procedure: XR abdomen 1V SINGLE VIEW ABDOMEN COMPARISON: CT 11/12/2024 CLINICAL DATA: Follow-up bilateral kidney stones. Prior lithotripsy. Supine views of the abdomen and pelvis were obtained. There is air and stool within the colon. No dilated small bowel loops are present. The kidneys are partially obscured. No definite radiopaque renal or ureteral stones are noted. No soft tissue masses are seen. There are mild degenerative changes at the spine. XR/XR abdomen 1V IMPRESSION: NO OBVIOUS RADIOPAQUE STONES. Impression dictated by: Jennifer Mcmillan M.D. 02/05/2025 11:42 AM Dictation Location: [place] [address] Electronically authenticated by: [id number] Y Date: 02/05/2025 11:42
== END 2025-02-05 11:19 | disposition home or self-care (01) ==
LOC: RAD 11:18
PROVIDERS: PCP Family Medicine; Visit Provider Urology
DX: N20.0 Calculus of kidney (principal)
CPT/HCPCS: 74018